=== PATIENT | female | born 1975 | race Caucasian/White ===

== ENCOUNTER 2019-12-17 07:35 | Day surgery (SDC) | payer BC ==
--- NOTE | 2019-12-11 08:43 | EKG ---
Test Date: 2019-12-11 Test Time: 08:32:13 Self Contained Behavior Unit Teacher: PALMIRA MEASUREMENT RESULTS: Intervals: Rate: 83 PA: 150 QRSD: 86 QT: 360 QTc: 423 [place]: P: 35 PA: 150 QRS: 83 T: 73 INTERPRETIVE STATEMENTS: Normal sinus rhythm Normal ECG No previous ECG available for comparison Electronically Signed On 12-11-19 08:42:58 CDT by Avery Suárez
--- NOTE | 2019-12-11 08:52 | RAD REPORT ---
EXAM DESCRIPTION: RAD - Chest Pa And Lat (2 Views) - 12/11/2019 8:46 am CLINICAL HISTORY: pre op, patient pending carpal tunnel surgery COMPARISON: March 2017 TECHNIQUE: Frontal and lateral views of the chest were obtained. FINDINGS: The lungs are clear. Mildly prominent interstitial pattern is similar to 2018. Heart size is normal and central vasculature is within normal limits. No pleural effusion or pneumothorax seen . No acute bony finding noted. No aortic abnormality. IMPRESSION: No acute cardiopulmonary process.
[2019-12-11 10:01] LABS: Absolute Lymphocytes (CBC) 2.5 K/uL (0.7-4.9); Basophils % 0.8 % (0-1.3); Hematocrit 45.4 % (36.0-45.0); Lymphocytes % 26.8 % (15.3-44.8); RBC Red Blood Cell Count 5.07 M/uL (3.86-4.86)
[2019-12-11 10:24] LABS: Potassium 4.3 mmol/L (3.5-5.1)
--- OUTSIDE RECORDS SUMMARY | 2019-12-17 07:57 | XMS REPORT | Continuity of Care Document ---
:1975 Author Organization [facility] t Address [address] [place] [address] Care Team Providers Name Role Phone Hawa SAUER Attending Clinician Jason Walker Attending Clinician Problems Condition Condition Condition Status Onset Resolution Last Treating Co mments Source Name Details Category Date Date Treatment Clinician Date G43.919 - Diagnosis Active 2015-06-07 Memoria "MIGRAINE, 3-15 07:34:00 l UNSP, G43.919 00:01: Benjamin INTRACTABL - 00 E, "MIGRAINE, UNSP, INTRACTABL E, Active 6 MH ALBERTO [place] Impaired Problem Active 2018-07-14 Mem oria glucose 5-05 06:42:01 l tolerance Impaired 00:00: Her jenkins (disorder) glucose 00 tolerance (disorder) Active 07/21/2014 Problem 07/14/2018 Data migrated from [email or web address] on 09/23/14. Evy Hendricks ALBERTO Vo Obesity Problem Active 2018-07-14 Derek alfredo (disorder) 5-05 06:42:01 l Obesity 00:00: Benjamin (disorder) 00 Active 07/21/2014 Problem 07/14/2018 Data migrated from [email or web address] on 09/23/14. Evy Hendricks OPID [place] Gynecologi Problem Active 2018-07-14 Ashwin smith 2-16 06:42:01 l examinatio 00:00: Wally sears n Gynecologi 00 (procedure c ) examinatio n (procedure ) Active 05/04/2014 Problem 07/14/2018 Data migrated from [email or web address] on 09/23/14. Evy Hendricks, OPID [place] COUGH Condition Active 2013-11-24 Mem oria 9-08 08:20:53 l COUGH 00:00: [place] 00 Active 11/24/2013 [facility] 719.46 - Diagnosis Active 2013-12-22 M emoria JOINT 11-11 07:16:00 l PAIN-L/LE 719.46 - 00:01: Her jenkins JOINT 00 PAIN-L/LE Active 11/11/2013 OPID [place] INSOMNIA Condition Active 2013-11-24 M emoria 07-24 08:20:53 l INSOMNIA 00:00: Wally n 00 Active 07/24/2013 [facility] Insomnia Problem Active 2018-07-14 Mem oria (disorder) 07-24 06:42:01 l Insomnia 00:00: Wally n (disorder) 00 Active 07/24/2013 Problem 07/14/2018 Data migrated from [email or web address] on 08/18/14. Evy Hendricks OPID [place] OSTEOARTHR Condition Active 2013-11-24 Memoria ITIS OF 06-12 08:20:53 l KNEE 00:00: [place] OSTEOARTHR 00 ITIS OF KNEE Active 06/12/2013 [facility] DEPRESSION Condition Active 2013-11-24 Memoria 06-12 08:20:53 l 00:00: Benjamin DEPRESSION 00 Active 06/12/2013 [facility] Depressive Problem Active 2018-07-14 M emoria disorder 06-12 06:42:01 l (disorder) 00:00: Wally n Depressive 00 disorder (disorder) Active 06/12/2013 Problem 07/14/2018 Data migrated from [email or web address] on 08/18/14. Evy Hendricks OPID [place] Osteoarthr Problem Active 2018-07-14 M emoria itis of 06-12 06:42:01 l knee 00:00: [place] (disorder) Osteoarthr 00 itis of knee (disorder) Active 06/12/2013 Problem 07/14/2018 Data migrated from [email or web address] on 08/18/14. Evy Eladio ALBERTO [place] FH Condition Active 2013-11-24 Mem oria DIABETES - 08:20:53 l DM FH [place] DIABETES - DM Active Condition 11/24/2013 Medical Group FH HEART Condition Active 2013-11-24 M emoria DISEASE 08:20:53 l FH HEART Wally n DISEASE Active Condition 11/24/2013 Medical Group RT KNEE Diagnosis Active 2014-06-16 Me moria MMT DOS 07:16:00 l 12/23/13 RT KNEE Wally n UDU CHO MMT DOS 12/23/13 UDU CHO Active [facility] History of Past Illness Condition Condition Condition Status Onset Resolution Last Treating Co mments Source Name Details Category Date Date Treatment Clinician Date Acute Problem Resolve 2018-07-14 2018-07-14 Memoria bronchitis d 10-30 06:42:01 06:42:01 l (disorder) Acute 00:00: Gregoria nn bronchitis 00 (disorder) Resolved 10/30/2013 Problem 07/14/2018 Data migrated from [email or web address] on 10/02/14. Evy Hendricks ALBERTO [place] Acute Problem Resolve 2018-07-14 2018-07-14 Memoria frontal d 09-15 06:42:01 06:42:01 l sinusitis Acute 00:00: Wally n (disorder) frontal 00 sinusitis (disorder) Resolved 09/15/2013 Problem 07/14/2018 Data migrated from [email or web address] on 10/02/14. Evy Eladio ALBERTO [place] ACUTE Condition Inactiv 2013-11-24 2013-11-24 Memoria BRONCHITIS e 10-30 08:20:53 08:20:53 l ACUTE 00:00: [place] BRONCHITIS 00 Inactive 10/30/2013 Condition 4 Medical [facility] ACUTE Condition Inactiv 2013-11-24 2013-11-24 Memoria FRONTAL e 09-15 08:20:53 08:20:53 l SINUSITIS ACUTE 00:00: Wally n FRONTAL 00 SINUSITIS Inactive 09/15/2013 [facility] Allergies, Adverse Reactions, Alerts Allergy Allergy Status Severity Reaction(s) Onset Inactive Treating Comm ents Source Name Type Date Date Clinician No Known No Known Active Memori a Medicati Medicati l on on [place] Allergie Allergie s s Social History Smoking Status Start Date Stop Date Source Social History 2015-05-27 21:03:15 2015-05-27 21:03:15 [facility] Medications Ordered Filled Start Stop Current Ordering Indication Dosage Frequency Signature Comments Components Source Medication Medication Date Date Medication? Clinician (SIG) Name Name Emgality Emgality 2018-03 2020- No Don [address] 0-03 09-27 [facility] [facility]00 Memoria 00 :00 [facility] ent Clinics Lyrica Lyrica Yes Don as [facility] 2-20 [place] directed [facility] - 00:[facility]: Memoria 00 [facility] ent [facility] AZITHROMYCI Yes 2 tablets M emoria N 250 MG 9-08 daily for l TABS 00:00: 1 day, [place] 00 then 1 tablet daily for 4 days BENZONATATE Yes Take one Me moria 200 MG CAPS 9-08 capsule by l 00:00: mouth 3 [place] 00 times daily as needed for cough AZITHROMYCI No 1 tablet Me moria N 500 MG 8-14 daily X 10 l TABS 00:00: days Benjamin 00 BROMFED DM No Take 7 Memor ia 30-2-10 8-14 mL's by l MG/5ML SYRP 00:00: mouth 3 Her jenkins 00 times a day as needed for cough or cold CEFDINIR Yes Take one Memor ia 300 MG CAPS 6-30 capsule by l 00:00: mouth [place] 00 twice daily for 10 days BROMFED DM No Take two Mem oria 30-2-10 6-30 teaspoons l MG/5ML SYRP 00:00: 3 times a H ermann 00 day as needed for coughing. CEFDINIR No Take one Memor ia 300 MG CAPS 6-30 capsule by l 00:00: mouth Benjamin 00 twice daily for 10 days TRAZODONE Yes half a Memori a HCL 50 MG 6-04 tablet or l TABS 00:00: a whole Benjamin 00 tablet at night as needed for insomnia TRAZODONE No half a Memori a HCL 50 MG 6-04 tablet or l TABS 00:00: a whole [place] 00 tablet at night as needed for insomnia ESCITALOPRA Yes one by Derek alfredo M OXALATE 5-08 mouth l 20 MG TABS 00:00: daily Wally n 00 SILENOR 3 Yes one by Memori a MG TABS 5-08 mouth each l 00:00: night as [place] 00 needed for insomnia ESCITALOPRA Yes one by Derek alfredo M OXALATE 5-08 mouth l 20 MG TABS 00:00: daily Wally n ESCITALOPRA Yes one by Derek alfredo M OXALATE 5-08 mouth l 20 MG TABS 00:00: daily Wally n 00 VOLTAREN 1 No Apply to Mem oria % GEL 3-27 the knee l 00:00: area three Benjamin 00 times a day as needed for pain NAPROXEN Yes 1 tablet Memor ia 500 MG TABS 3-27 twice l 00:00: daily as [place] 00 needed for pain ESCITALOPRA Yes 1 tablet Me moria M OXALATE 3-27 daily l 10 MG TABS 00:00: Benjamin 00 NAPROXEN Yes 1 tablet Memor ia 500 MG TABS 3-27 twice l 00:00: daily as [place] 00 needed for pain NAPROXEN Yes 1 tablet Memor ia 500 MG TABS 3-27 twice l 00:00: daily as [place] 00 needed for pain VOLTAREN 1 No Apply to Mem oria % GEL 3-27 the knee l 00:00: area three [place] 00 times a day as needed for pain Magnesium Magnesium Yes Don [address] [facility] [place] with a [facility] - meal [facility] Iron Iron Yes Don [address] [facility] Trazodone Trazodone Yes Don [address] [facility] HCl HCl [place] at bedtime [facility] Amitriptyli Amitriptyli Yes Don TAKE ONE [facility] ne HCl ne HCl [place] TABLET BY [facility] - MOUTH Memoria DAILY l [facility] Escitalopra Escitalopra Yes Don TAKE ONE [facility] m Oxalate m Oxalate [place] TABLET BY [facility] - MOUTH Memoria DAILY l Outpati ent Clinics Diclofenac Diclofenac 2019- No Don [address] [facility] Sodium Sodium 09-18 [place] with food [facility]ukes - 00:00 or milk Memoria :00 l Outpati ent Clinics Immunizations Ordered Filled Immunization Date Status Comments Sourc e Immunization Name Name Grace - Grace - 2018-12-[address] [facility] - multidose vial multidose vial 00:00:00 Memori al Outpatient Clinics Vital Signs Vital Name Observation Time Observation Value Comments Source Respitory Rate 2013-11-24 13:20:53 Memori al [facility] Temperature Oral (F) 2013-11-24 13:20:53 98.3 F [facility] Weight 2013-11-24 13:20:53 [facility] Heart Rate 2013-11-24 13:20:53 [facility] [place] Systolic (mm Hg) 2013-11-24 13:20:53 Derek rial Benjamin Diastolic (mm Hg) 2013-11-24 13:20:53 Mem orial [place] Weight 2013-10-30 13:43:21 [facility] Temperature Oral (F) 2013-10-30 13:43:21 98.6 F [facility] Systolic (mm Hg) 2013-10-30 13:43:21 Derek rial Benjamin Diastolic (mm Hg) 2013-10-30 13:43:21 Mem orial [facility] Heart Rate 2013-10-30 13:43:21 [facility] [place] Weight 2013-09-15 21:03:31 [facility] [place] Temperature Oral (F) 2013-09-15 21:03:31 98.3 F [facility] [place] Systolic (mm Hg) 2013-09-15 21:03:31 Derek rial [place] Diastolic (mm Hg) 2013-09-15 21:03:31 Mem orial [place] Heart Rate 2013-09-15 21:03:31 [facility] [place] Weight 2013-07-24 15:46:32 [facility] [place] Temperature Oral (F) 2013-07-24 15:46:32 98.5 F [facility] [place] Heart Rate 2013-07-24 15:46:32 [facility] Systolic (mm Hg) 2013-07-24 15:46:32 Derek rial [place] Diastolic (mm Hg) 2013-07-24 15:46:32 Mem orial [place] Height 2013-06-12 18:29:01 [facility] Weight 2013-06-12 18:29:01 [facility] Respitory Rate 2013-06-12 18:29:01 Memori al [place] Heart Rate 2013-06-12 18:29:01 [facility] [place] Systolic (mm Hg) 2013-06-12 18:29:01 Derek robert [place] Diastolic (mm Hg) 2013-06-12 18:29:01 Mem orial [place] Temperature Oral (F) 2013-06-12 18:29:01 98.9 F [facility] Procedures Procedure Date / Time Performed Performing Clinician Rao hahn vaginal Pap smear results 2011-03-20 16:56:54 La morial [place] Arthroscopy<sup>1</sup> [facility] Bilateral tubal ligation Marika l [place] section Mina Lo n Encounters Start End Encounter Admission Attending Care Care Encounter Source Date/Time Date/Time Type Type Clinicians Facility Department ID 2019-11-27 2019-11-27 [facility] [id number] 08:00:00 08:00:00 [facility] 2019-11-27 2019-11-27 Outpatient [id number]00 [facility] 2019-10-29 2019-10-29 [facility] [id number] 08:00:00 23:59:00 Encounter Mila [place] [id number] [place] [id number] [place] [id number] 2019-10-28 2019-10-28 [facility] [id number] 09:30:00 09:30:00 t Chegg Gilbert s [facility] 2019-10-16 2019-10-16 [facility] [id number] 09:00:00 09:00:00 [facility] 2019-10-01 2019-10-[address] [facility] [id number] 08:34:48 09:13:54 Visit Mila Sol [id number] [place] [id number] Olivia [id number] [address] 2019-07-29 2019-07-29 [facility] [id number] 14:15:00 14:15:00 t [employer] [facility] 2019-07-17 2019-07-17 [facility] [id number] 15:00:00 15:00:00 t [facility] Clinic of [facility] ent [facility] 2019-05-29 2019-05-29 [facility] [id number] 14:30:00 14:30:00 t [employer] [facility] 2019-05-26 2019-05-26 [facility] [id number] 08:00:00 08:00:00 t [facility] ent Clinics 2019-04-30 2019-04-30 [facility] [id number] 16:54:00 16:54:00 t [employer] [facility] 2019-04-30 2019-04-30 [facility] [id number] 15:00:00 15:00:00 t [employer] [facility] Outpati ent Clinics 2019-01-20 2019-01-20 [facility] [id number] 14:15:00 14:15:00 t [employer] [facility] 2018-12-19 2018-12-19 [facility] [id number] 10:00:00 10:00:00 t [place] [place] [facility] Outpati ent Clinics 2018-11-20 2018-11-20 [facility] [id number] 08:00:00 08:00:00 t [place] [employer] [employer] [facility] Medicine Outpati ent Clinics 2018-07-10 2018-07-11 Outpatient MHMISCHER MHMISCHER [id number] 10:05:00 23:59:59 02 2018-07-10 2018-07-11 Outpatient MHMISCHER MHMISCHER [id number] 10:05:00 23:59:59 02 2018-06-20 2018-06-20 [facility] [id number] 13:00:00 13:00:00 t [place] [employer] [employer] [facility] Medicine Outpati ent Clinics 2018-05-08 2018-05-08 [facility] [id number] 14:00:00 14:00:00 t [employer] [facility] Medicine Outpati ent Clinics 2018-04-17 2018-04-17 [facility] [id number] 10:15:00 10:15:00 t [employer] [facility] Medicine Outpati ent Clinics 2015-06-07 2015-06-07 Outpatient MARIA ESTHER Gomez OIP [id number] 07:23:00 23:59:00 Nomi 01 Results Test Description Test Time Test Comments Results Result Comments Source Softball Ump[employer] 2011-03-20 Normal [facility] Gregoria nn 16:56:54 Pathology 2011-03-20 Normal [facility] Gregoria nn 16:56:54
--- OUTSIDE RECORDS SUMMARY | 2019-12-17 07:57 | XMS REPORT ---
:1975 Author Organization [employer] Care Team Providers Name Role Phone Don Llanos Provider Role Unavailable Allergies No Known Allergies Problems Problem Type Condition Code Onset Dates Condition Statu s Problem GERD without esophagitis K21.9 Act sharon Problem Depression with anxiety F41.8 Acti ve Problem Seasonal allergies J30.2 Active Problem Carpal tunnel syndrome of right G56.01 Active wrist Problem Paresthesia of skin R20.2 Active Problem Carpal tunnel syndrome of left G56.02 Active wrist Problem Adult BMI 40.0-44.9 kg/sq m Z68.41 Active Problem Peripheral polyneuropathy G62.9 Ac tive Problem Hypertriglyceridemia E78.1 Active Problem Bilateral carpal tunnel syndrome G56.03 Active Assessment Pain in joint of right hand M25.541 Active Assessment Pain in joint of left hand M25.542 A ctive Assessment Carpal tunnel syndrome of left G56.02 Active wrist Assessment Carpal tunnel syndrome of right G56.01 Active wrist Problem Migraine without aura and without G43.009 Active status migrainosus, not intractable Medications Medication Code Code Instructions Start End Status Dosage System Date Date Trazodone HCl [facility] 23511688018 50 MG Active TAKE O NE TABLET BY MOUTH AT BEDTIME Escitalopram ND 31554166497 20 MG Active TAKE ON E Oxalate TABLET BY MOUTH DAILY Lyrica ND 38353403705 100 MG Orally Active as dir ected BID Trazodone HCl ND 35364188491 50 MG Orally Active 1 tablet at Once a day bedtime Diclofenac ND 35463652729 75 MG Orally Active 1 ta blet Sodium Twice a day with food or milk Iron [facility] 18080104982 325 (65 Fe) MG Active 1 tab let Orally Once a day Diclofenac ND 62503150945 75 MG Active TAKE ONE Sodium TABLET BY MOUTH TWICE A DAY WITH FOOD OR MILK Amitriptyline ND 47505920252 100 MG Active TAKE O NE HCl TABLET BY MOUTH DAILY Amitriptyline ND 16267998734 100 MG Orally Active 1 tablet HCl Once a day Escitalopram [facility] 20544709260 20 MG Orally Active 1 tablet Oxalate Once a day Emgality [facility] 60904563583 120 MG/ML Active 1 ml Subcutaneous Once a month Magnesium [facility] 63665720059 200 MG Orally Active 1 ta blet twice a day with a meal Results No Known Results Summary Purpose [employer] Submission
--- OUTSIDE RECORDS SUMMARY | 2019-12-17 07:57 | XMS REPORT ---
:1975 Author Organization [employer] Care Team Providers Name Role Phone Edwin [facility] Provider Role Unavailable Allergies, Adverse Reactions, Alerts Substance Reaction Event Type N.K.D.A. Info Not Available Non Drug Allergy Problems Problem Type Condition Code Onset Dates Condition Statu s Problem GERD without esophagitis K21.9 Act sharon Problem Depression with anxiety F41.8 Acti ve Problem Seasonal allergies J30.2 Active Problem Carpal tunnel syndrome of right G56.01 Active wrist Assessment Renal insufficiency N28.9 Active Problem Paresthesia of skin R20.2 Active Problem Carpal tunnel syndrome of left G56.02 Active wrist Problem Adult BMI 40.0-44.9 kg/sq m Z68.41 Active Problem Peripheral polyneuropathy G62.9 Ac tive Problem Hypertriglyceridemia E78.1 Active Problem Bilateral carpal tunnel syndrome G56.03 Active Assessment Adult BMI 40.0-44.9 kg/sq m Z68.41 Active Assessment Hypertriglyceridemia E78.1 Active Assessment Anesthesia of skin R20.0 Active Assessment Paresthesia of skin R20.2 Active Assessment Peripheral polyneuropathy G62.9 Ac tive Assessment Migraine without aura and without G43.009 Active status migrainosus, not intractable Assessment Depression with anxiety F41.8 Acti ve Assessment Bilateral carpal tunnel syndrome G56.03 Active Problem Migraine without aura and without G43.009 Active status migrainosus, not intractable Medications Medication Code Code Instructions Start End Status Dosage System Date Date Escitalopram [facility] 16297106358 20 MG Orally Active 1 tablet Oxalate Once a day Escitalopram [facility] 09561132949 20 MG Active TAKE ON E Oxalate TABLET BY MOUTH DAILY Amitriptyline ND 35795718445 100 MG Active TAKE O NE HCl TABLET BY MOUTH DAILY Diclofenac ND 70647619167 75 MG Orally Active 1 ta blet Sodium Twice a day PRN with viola d SEvere pain or milk Iron [facility] 66420772878 325 (65 Fe) MG Active 1 tab let Orally Once a day Lyrica [facility] 43662231051 100 MG Orally Active as dir ected BID Trazodone HCl [facility] 13624008216 50 MG Orally Active 1 tablet at Once a day bedtime Emgality [facility] 03153790818 120 MG/ML Active 1 ml Subcutaneous Once a month Trazodone HCl [facility] 19908832296 50 MG Active TAKE O NE TABLET BY MOUTH AT BEDTIME Amitriptyline [facility] 48445551596 100 MG Orally Active 1 tablet HCl Once a day Magnesium [facility] 01024073321 200 MG Orally Active 1 ta blet twice a day with a meal Diclofenac [facility] 41493216727 75 MG Active TAKE ONE Sodium TABLET BY MOUTH TWICE A DAY WITH FOOD OR MILK Results No Known Results Summary Purpose [employer] Submission
--- OUTSIDE RECORDS SUMMARY | 2019-12-17 07:57 | XMS REPORT | Summary of Care ---
:1975 Author Organization [facility] - Health Address [address] [place] [address] Care Team Providers Name Role Phone Talha Pineda Primary Care Provider Encounter Details Date Type Department Care Team Description 10/01/2019 Orders Only [facility] Doctor Unassigned, No [address] [facility] [place] [address] [address] [place] [address] Allergies No Known Allergiesdocumented as of this encounter (statuses as of 10/01/2019) Medications Medication Sig Dispensed Refills Start Date End Date Status vitamin Take 1 Tab by mouth 100 Tab 3 02/09/2010 Active w/FA ( RX OR daily. GENERIC EQUIVALENT) tablet docusate calcium Take 1 Cap by mouth 60 Cap 1 02/09/2010 Active (SURFAK) 240 mg once daily as needed capsule for Constipation. ferrous sulfate 325 Take 1 Tab by mouth 60 Tab 2 02/09/2010 Active mg (65 mg Iron) 2 (two) times daily. tablet hydrocodone-acetamin Take 1-2 Tabs by 30 Tab 0 02/09/2010 Active ophen (NORCO 5) mouth every 6 (six) 5-325 mg tablet hours as needed for Pain. Not to be administered at the same time as [place] 10 if ordered. For patients < 12 years recommend do not exceed 5 doses or 2.6 gm in 24 hours totals for all acetaminophen containing products. For adults with normal hepatic function recommend do not exceed 4 grams in 24 hours for all acetaminophen containing products. ibuprofen (MOTRIN) Take 1 Tab by mouth 60 Tab 1 02/09/2010 Active 600 mg tablet every 6 (six) hours as needed for Pain. 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 COVID-19 Exposure Response Date Recorded In the last month, have you been in contact with No / Unsure 10/01/2019 8:32 AM CDT someone who was confirmed or suspected to have Coronavirus / COVID-19? documented as of this encounter Last Filed Vital Signs Not on filedocumented in this encounter Plan of Treatment Date Type Specialty Care Team Description 10/01/2019 Office Visit Obstetrics & Gynecology Mila Shaikh PA-C [address] [place] [address] [phone] Health Maintenance Due Date Last Done Comments DTaP,Tdap,and Td Vaccines (1 01/04/1987 - Tdap) Depression Screening 1988 Breast Cancer Screening 2016 (MAMMOGRAM) INFLUENZA VACCINE (#1) 2019 PAP SMEAR 09/30/2021 09/30/2018, 06/18/2009 PNEUMOCOCCAL 0-64 YEARS Aged Out No longe r eligible based COMBINED SERIES on patient's age to complete this to [facility] documented as of this encounter Procedures Procedure Name Priority Date/Time Associated Diagnosis Comme nts ASSIGNMENT OF BENEFITS Routine 10/01/2019 8:34 AM CDT documented in this encounter Results Not on filedocumented in this encounter Insurance Payer Benefit Plan Subscriber ID Effective Dates Phone Address Type / Group [employer] [place] [id number] 2018-Becky [phone] [address] [place] - OUT OF t 7 [id number] [place] [address] documented as of this encounter
--- OUTSIDE RECORDS SUMMARY | 2019-12-17 07:57 | XMS REPORT | Summary of Care ---
:1975 Author Organization [facility] Address [address] [place] [id number] Care Team Providers Name Role Phone Talha Pineda Primary Care Provider Reason for Referral Radiology Services (Routine) Status Reason Specialty Diagnoses / Referred By Referred To Procedures Contact Contact New Request Diagnostic Diagnoses Screening breast examination [place], Radiology Procedures BI SCREENING MAMMOGRAM BILATERAL CAMACHO Zaragoza [address] [place] [id number] Reason for Visit Reason Comments Well Woman Exam Encounter Details Date Type Department Care Team Description 10/01/2019 Office Visit [facility] Women[facility] Mila Shaikh Well woman exam with routine gynecological exam (Primary Dx); [facility] CAMACHO Screening breast examination; [address] [place] [address] [address] renita for Depo-Provera [address], [address] [place] [id number] [place], [place] [phone] Allergies No Known Allergiesdocumented as of this [...] be administered at the same time as [place] 10 if ordered. 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 documented as of this encounter (statuses [...] of this encounter Last Filed Vital Signs Vital Sign Reading Time Taken Comments Blood Pressure 124/85 10/01/2019 8:45 AM CDT Pulse 90 10/01/2019 8:45 AM CDT Temperature 36.9 C (98.5 F) 10/01/2019 8:45 AM CDT Respiratory Rate 18 10/01/2019 8:45 AM CDT Oxygen Saturation - - Inhaled Oxygen Concentration - - Weight 113.9 kg (251 lb) 10/01/2019 8:45 AM CDT Height 167.6 cm (5' 6") 10/01/2019 8:45 AM CDT Body Mass Index 40.51 10/01/2019 8:45 AM CDT documented in this encounter Patient Instructions Patient InstructionsDilma Galo MA - 10/01/2019 9:00 AM CDT Patient Education Prevention Guidelines,Women Ages 40 to 49 Screening tests and vaccines are an important part of managing your health. A screening test is doneto find diseases in people who don't have any symptoms. The goal is to find a disease early so lifestyle changes and checkups can reduce the risk of disease. Or the goal may be to detect it early to treat it most effectively. Screening tests are not used to diagnose a disease. But they are used to seeif more testing is needed.Health counseling is important, too. Below are guidelines for these, forwomen ages 40 to 49. Talk with your healthcare provider to make sure youre up-to-date on what youneed. Screening Who needs it How often Type 2 diabetes or prediabetes All women beginning at age 45 and women without symptoms at any age who are overweight or obese and have 1 or more additional risk factors for diabetes At least every 3 years1 Type 2 diabetes or prediabetes All women diagnosed with gestational diabetes Lifelong testing every 3 years Type 2 diabetes All women with prediabetes Every year Alcohol misuse All women in this age group At routine exams Blood pressure All women in this age group Yearly checkup if your blood pressure is normal Normal blood pressure is less than 120/80 mm Hg If your blood pressure reading is higher than normal, follow the advice of your healthcare provider Breast cancer All women at average risk in this age group Screening with a mammogram can start at age 40.2 Talk with your healthcare provider to help you decide when to start screening. At age 45 startyearly mammograms.3 Cervical cancer All women in this age group, except women who have had a complete hysterectomy Pap test every 3 yearsor Pap test plushuman papilloma virus (HPV)test every 5 years Colorectal cancer Women age 45 years and older at average risk Multiple tests are available and are used at different times. Possible tests include: Flexible sigmoidoscopy every 5 years, or Colonoscopy every 10 [address], [address] colonography (virtual colonoscopy) every 5 years, or Yearly fecal occult blood test, or Yearly fecal immunochemical test every year, or Stool DNA test, every 3 years If you choose a test other than a colonoscopy and have an abnormal test result, you will need to follow-up with a colonoscopy. Screening advice varies among expert groups. Talk with your healthcare provider about which tests are best for you. Some people should be screened using a different schedule because of their personal or family healthhistory. Talk with your healthcare provider about your health history. Chlamydia Women at increased risk for infection At routine exams if you're at risk or have symptoms Depression All women in this age group At routine exams Gonorrhea Sexually active women at increased risk for infection At routine exams Hepatitis C Anyone at increased risk; 1 time for those born between 1945 and 1964 At routine exams High cholesterol or triglycerides All women ages 45 and older who are at risk for coronary artery disease; younger women, talk with your healthcare provider At least every 5 years HIV All women At routine exams. Those with risk factors for HIV should be tested at least annually. Obesity All women in this age group At routine exams Syphilis Women at increased risk for infectiontalk with your healthcare provider At routine exams Tuberculosis Women at increased risk for infectiontalk with your healthcare provider Ask your healthcare provider Vision All women in this age group Complete exam at age 40 and eye exams every 2 to 4 years. If you have a chronic disease, ask your healthcare provider how often you should have your eyes examined.4 Vaccine Who needs it How often Chickenpox (varicella) All women in this age group who have no record of this infection or vaccine 2doses; the second dose should be given at least 4 weeks after the first dose Hepatitis A Women at increased risk for infectiontalk with your healthcare provider 2 doses given6 months apart Hepatitis B Women at increased risk for infectiontalk with your healthcare provider 3 doses over 6 months; second dose should be given 1 month after the first dose; the third dose should be given atleast 2 months after the second dose and at least 4 months after the first dose Haemophilus influenzaeType B (HIB) Women at increased risk 1 to 3 doses Influenza (flu) All women in this age group Once a year Measles, mumps, rubella (MMR) All women in this age group who have no record of these infections or vaccines 1 or 2 doses Meningococcal Women at increased risk for infectiontalk with your healthcare provider 1 or more doses Pneumococcal conjugate vaccine (PCV13)and pneumococcal polysaccharidevaccine(PPSV23) Women at increased risk for infectiontalk with your healthcare provider 1 or 2 doses Tetanus/diphtheria/pertussis (Td/Tdap) booster All women in this age group A 1- time dose of Tdap instead of a Td booster after age 18, then Td every 10 years Counseling Who needs it How often BRCA gene mutation testing for breast and ovarian cancer susceptibility Women with increased risk for having gene mutation When your risk is known Breast cancer and chemoprevention Women at high risk for breast cancer When your risk is known Diet and exercise Women who are overweight or obese When diagnosed, and then at routine exams Domestic violence Women at the age in which they are able to have children At routine exams Sexually transmitted infection prevention Women at increased risk for infectiontalk with your healthcare provider At routine exams Use of tobacco and the health effects it can cause All women in this age group Every exam 1 [place] [employer] 2 [place] [employer] 3 [place] [employer] 4 [place] [employer] POINT 3 [employer] last reviewed this educational content on 01/17/201719993240-1450 [employer]. [address] [place] [address]. All rights reserved. This information is not intended as a substitute for professional medical care. Always follow your healthcare professional's instructions. Patient Education Clinical Breast Exam Many health organizations recommend a yearly clinical breast exam. This exam may be done by a motorcycle deliverer, family healthcare provider, nurse practitioner, nurse trimming operator, or specially trained nurse. Yearly breast exams help tomake surethat breast conditions are found early. Your healthcare providers role A healthcare professional knows the tests and follow-up care needed if a problem is found. Your clinical exam is also a great time to ask questions about breast self-exams. You can find out if yourechecking your breasts in the best way. Or you may want to ask how , breast implants, or breast reduction surgery affect the way you should check your breasts. Diagnostic tests If a clinical exam reveals a breast change, you may have other tests to find out more. These tests may include: Mammography. A low-dose X-ray of your breast tissue. Ultrasound. An imaging test that uses sound waves to create images of your breast. Biopsy. A small amount of breast tissue is removed by needle or by a cut (incision). The tissue is then checked under a microscope. Guidelines for having clinical breast exams The [place] [employer] recommends that starting at age 29, you should have a clinical breast exam every 1 to 3 years. After age 40, have a clinical breast exam each year. If youre at higher risk for breast cancer, you may need exams more often. Risk factors for breast cancer may include: Being over 50 or postmenopausal Having a family history of breast cancer Having the BRCA1 or BRCA2 gene mutation or certain other gene mutations Having more menstrual periods due to starting menstruation early(before age 12) or having a late menopause (after age 55) Having no pregnancies Having a first after age 30 Being obese Having a history of radiation treatment to your chest area Exposure to EUGENE during your mother's Not being active Drinking too much alcohol Having dense breast tissue Taking hormone therapy after menopause Other health organizations have different recommendations. Talk with your healthcare provider about what is best for you. POINT 3 [employer] liam reviewed this educational content on 10/17/201619990698-7945 [employer]. [address] [place] [address]. All rights reserved. This information is not intended as a substitute for professional medical care. Always follow your healthcare professional's instructions. Patient Education Breast Health: Breast Self-Awareness What is breast self-awareness? Breast self-awareness is knowing how your breasts normally look and feel. Your breasts change as yougo through different stages of your life. So its important to learn what is normal for your breasts. Knowing about your breasts helps you spot any changes in them right away. Tell your healthcare provider about any changes. Why is breast self-awareness important? Many experts now say that women should focus on breast self-awareness instead of doing a breast self-examination (BSE). These experts include the [place] [employer] and the [place] [employer]ians [employer] Gynecologists. Some experts even advise not teaching women to do a BSE. Thats because research hasnt shown a clear benefit to doing BSEs. Breast self-awareness is different than a BSE. It isnt about following a certain method and schedule. Its about knowing what's normal for your breasts. That way you can spot even small changes right away. If you see any changes, tell your healthcare provider. Changes to look for Call your healthcare provider if you find any changes in your breasts that worry you. These changes may be: A lump Nipple discharge other than breastmilk, especially if it's bloody Swelling A change in size or shape Skin changes, such as redness, thickening, or dimpling of the skin Swollen lymph nodes in the armpit Nipple problems, such as pain or redness If you find a lump Call your provider if you find lumpiness in one breast. Also call if you feel something different inthe tissue or feel a definite lump. Sometimes lumpiness may be due to menstrual changes. But there may be reason for concern. Your provider may want to see you right away if you have: Nipple discharge that is bloody Skin changes on your breast, such as dimpling or puckering Its okay to be upset if you find a lump. Be sure to call your provider right away. Remember that most breast lumps are benign. This means they are not cancer. [employer] 3 [employer] last reviewed this educational content on 10/17/201619998975-7834 [employer]. [address] [place] [address]. All rights reserved. This information is not intended as a substitute for professional medical care. Always follow your healthcare professional's instructions. Patient Education Medroxyprogesterone injection [Contraceptive] Brand Names: Depo-Provera, Depo-subQ Provera 104 What is this medicine? MEDROXYPROGESTERONE (me DROX ee proe NAEEM te yodit) contraceptive injections prevent . They provide effective control for 3 months. Depo-subQ Provera 104 is also used for treating pain related to endometriosis. How should I use this medicine? Depo-Provera Contraceptive injection is given into a muscle. Depo-subQ Provera 104 injection is given under the skin. These injections are given by a health critical care rn. You must not be before getting an injection. The injection is usually given during the first 5 days after the start of a menstrual period or 6 weeks after delivery of a baby. Talk to your manager of procurement regarding the use of this medicine in children. Special care may be needed. These injections have been used in female children who have started having menstrual periods. What side effects may I notice from receiving this medicine? Side effects that you should report to your doctor or health critical care rn as soon as possible: allergic reactions like skin rash, itching or hives, swelling of the face, lips, or tongue breast tenderness or discharge breathing problems changes in vision depression feeling faint or lightheaded, falls fever pain in the abdomen, chest, groin, or leg problems with balance, talking, walking unusually weak or tired yellowing of the eyes or skin Side effects that usually do not require medical attention (report to your doctor or health critical care rn if they continue or are bothersome): acne fluid retention and swelling headache irregular periods, spotting, or absent periods temporary pain, itching, or skin reaction at site where injected weight gain What may interact with this medicine? Do not take this medicine with any of the following medications: bosentan This medicine may also interact with the following medications: aminoglutethimide antibiotics or medicines for infections, especially rifampin, rifabutin, rifapentine, and griseofulvin aprepitant barbiturate medicines such as phenobarbital or primidone bexarotene carbamazepine medicines for seizures like ethotoin, felbamate, oxcarbazepine, phenytoin, topiramate modafinil Herndon's wort What if I miss a dose? Try not to miss a dose. You must get an injection once every 3 months to maintain control. If you cannot keep an appointment, call and reschedule it. If you wait longer than 13 weeks between Depo-Provera contraceptive injections or longer than 14 weeks between Depo-subQ Provera 104 injections, you could get . Use another method for control if you miss your appointment. You may also need a test before receiving another injection. Where should I keep my medicine? This does not apply. The injection will be given to you by a health critical care rn. What should I tell my health care provider before I take this medicine? They need to know if you have any of these conditions: frequently drink alcohol asthma blood vessel disease or a history of a blood clot in the lungs or legs bone disease such as osteoporosis breast cancer diabetes eating disorder (anorexia nervosa or bulimia) high blood pressure HIV infection or AIDS kidney disease liver disease mental depression migraine seizures (convulsions) stroke tobacco smoker vaginal bleeding an unusual or allergic reaction to medroxyprogesterone, other hormones, medicines, foods, dyes, or preservatives or trying to get breast-feeding What should I watch for while using this medicine? This drug does not protect you against HIV infection (AIDS) or other sexually transmitted diseases. Use of this product may cause you to lose calcium from your bones. Loss of calcium may cause weak bones (osteoporosis). Only use this product for more than 2 years if other forms of control are not right for you. The longer you use this product for control the more likely you will be at risk for weak bones. Ask your health critical care rn how you can keep strong bones. You may have a change in bleeding pattern or irregular periods. Many females stop having periods while taking this drug. If you have received your injections on time, your chance of being is very low. If you think you may be , see your health critical care rn as soon as possible. Tell your health critical care rn if you want to get within the next year. The effect of this medicine may last a long time after you get your last injection. NOTE:This sheet is a summary. It may not cover all possible information. If you have questions aboutthis medicine, talk to your doctor, pharmacist, or health care provider. Copyright 2018 [employer] Patient Education Calcium Supplements Calcium is a mineral that helps make strong bones and teeth. Most of the calcium in your body is in your bones. It takes almost half of your life (30 to 35 years) for your bones to reach their maximum size and strength (peak bone mass). When you are younger, taking in enough calcium helps you build strong bones. When you are older, getting enoughcalcium in your diethelps tolimit bone loss. Yourbody cant make calcium, so you must get it from foods or supplements. Why use a supplement? You might need a supplement if any of the following is true for you: I dont eat dairy products or other foods that are high in calcium such as kale, bok priya, and calcium-fortified foods 2 to 3 times a day. I am a woman past menopause. I am or . I don't do frequent weight-bearing exercises such as walking, running, or weightlifting. The daily recommended amount of calcium depends on many factors. This includes yourage and if you are a man or a woman. Your healthcare provider can help you choose the right amount of calcium for you. If you take calcium Here are some tips to help you get the most from a calcium supplement: Choose calcium carbonate or calcium citrate. Calcium carbonate needs stomach acid to be absorbed.So it's best absorbed when taken with meals. Calcium citrate is absorbed the same when taken with orwithout food. Check the label for elemental calcium. You need 1,000 to 1,500 mg a day. This should come from diet and supplements. Figure out how much calcium is in your diet and choose the correct supplement. If you also take an iron supplement, take it a few hours before or after the calcium. Be aware that taking calcium interferes with the absorption of some bacteria- fighting medicines (antibiotics). Talk to your provider or pharmacist. Eat a balanced diet to get all the nutrients your body needs. Sources of calcium Milk, yogurt, and cheese Certain green leafy vegetables, such as kale, bok priya, and sujit greens Fish with bones, such as canned salmon, mackerel, and sardines Tofu made with calcium carbonate (not the type of tofu called nagiri) Drinks that have calcium added, such as some orange juice and rice and soy drinks [employer] 3 [employer] last reviewed this educational content on 12/17/201819993733-0827 [employer]. [address] [place] [address]. All rights reserved. This information is not intended as a substitute for professional medical care. Always follow your healthcare professional's instructions. documented in this encounter Progress Notes Dilma Galo MA - 10/01/2019 9:00 AM CDT44 year old female has been identified by and name. Written consent has been obtained by patient to have an injection of Depo Provera, as ordered by the provider. Date of last Depo Provera injection: 07/15/2019 Last Pap Smear: 09/30/2018 Encounter Diagnosis: Z30.42 The site was cleaned with an alcohol swab and given intramuscularly (IM) in the left deltoid. A band aid dressing was then applied to the injection site. The patient tolerated the procedure well , norash, swelling or reaction noted. DILMA GALO MA 10/01/2019 9:09 AM Mila Rebollar PA-C - 10/01/2019 9:00 AM CDT Chief complaint: Chief Complaint Patient presents with Well Woman Exam HPI Leanne Berman is a 44 year old female presenting for well woman exam. She is particularly concerned about wwe The patient has a Body mass index is 40.51 kg/m.. She is working on eating healthier and exercising more. The patient is not concerned about her menstrual cycles. Her cycles are irregular and last about 1-3 days. Her bleeding is minimal. The patient is sexually active. She currently has 1 sexual partner(s). She is offered sexually transmitted disease testing and declines. She has had 1 sexual partners in the past year. She engages in vaginal and oral sex. She prefers men. She is currently using depo for contraception. She reports starting to have hot flushes or night sweats. She is not using hormone therapy. She denies using any complementary or alternative medicines. The patient denies any urinary incontinence. She denies any fecal incontinence. Her last pap smear was in 2018 and was normal. Her next pap smear is due 2023. She engages in breast self awareness. She denies any breast changes. Her last mammogram was in never. Her last colonoscopy was never. She denies any n/v, d/c, rectal bleeding. She denies any family history of breast, ovarian, uterine or colon cancer. The patient feels safe at home. She denies any history of drug use. She does not smoke. She drinks socially. Her mood is good. Histories OB History Para Term AB Living 5 3 3 2 3 SAB TAB Ectopic Multiple Live Births 1 1 3 # Outcome Date GA Lbr Jeff/2nd Weight Sex Delivery Anes PTL Lv 5 Term 2009 CS-Unspec ACE 4 SAB 2004 3 Term 2003 VAGINAL ACE 2 Term 1997 VAGINAL ACE 1 TAB 1997 Obstetric Comments Largest baby weighed 9lbs Past Medical History: Diagnosis Date Anxiety Depression Pap smear abnormality of cervix '98 Family History Problem Relation Age of Onset Diabetes Mother COPD (chronic obstructive pulmonary disease) Father Cancer Father polyps Family Status Relation Name Status Mo Alive Fa Alive Past Surgical History: Procedure Laterality Date BACK SURGERY SECTION MENISCECTOMY Social History Socioeconomic History Marital status: Spouse name: Not on file Number of children: Not on file Years of education: Not on file Highest education level: Not on file Occupational History Not on file Social Needs Financial resource strain: Not on file Food insecurity: Worry: Not on file Inability: Not on file Transportation needs: Medical: Not on file Non-medical: Not on file Tobacco Use Smoking status: Never Smoker Smokeless tobacco: Never Used Substance and Sexual Activity Alcohol use: Yes Comment: ocassionally Drug use: Never Sexual activity: Yes Partners: Male control/protection: Injection Lifestyle Physical activity: Days per week: Not on file Minutes per session: Not on file Stress: Not on file Relationships Social connections: Talks on phone: Not on file Gets together: Not on file Attends protestant service: Not on file Active member of club or organization: Not on file Attends meetings of clubs or organizations: Not on file Relationship status: Not on file Intimate partner violence: Fear of current or ex partner: Not on file Emotionally abused: Not on file Physically abused: Not on file Forced sexual activity: Not on file Other Topics Concern Not on file Social History Narrative Pt denies physical and sexual abuse. Social History Substance and Sexual Activity Sexual Activity Yes Partners: Male control/protection: Injection Labs none Radiology none Allergies Leanne has No Known Allergies. Medications Leanne has a current medication list which includes the following prescription(s): emgality pen, amitriptyline, escitalopram oxalate, lyrica, trazodone, docusate calcium, ferrous sulfate, hydrocodone-acetaminophen, ibuprofen, and vitamin w/fa. Review of Systems Constitutional: Negative for appetite change, fatigue, fever, unexpected weight change, weight gain and weight loss. HENT: Negative for rhinorrhea and sore throat. Eyes: Negative for pain and itching. Respiratory: Negative for cough, chest tightness and shortness of breath. Breasts: Negative for discharge, mass and pain. Cardiovascular: Negative for chest pain, palpitations and leg swelling. Gastrointestinal: Negative for abdominal pain, constipation, diarrhea and nausea. Genitourinary: Negative for bladder incontinence, dysuria, vaginal discharge, difficulty urinating, vaginal pain and pelvic pain. Musculoskeletal: Negative for gait problem and myalgias. Skin: Negative for rash. Neurological: Negative for dizziness and headaches. Psychiatric/Behavioral: Negative for suicidal ideas. The patient is not nervous/anxious. Endocrine: Negative for hair loss, weight gain and weight loss. BP 124/85 (BP Location: Left arm, Patient Position: Sitting, BP CUFF SIZE: Adult Small) | Pulse 90| Temp 36.9 C (98.5 F) (Oral) | Resp 18 | Ht 5' 6" (1.676 m) | Wt 251 lb (113.9 kg) | LMP 09/11/2019 (Within Days) | BMI 40.51 kg/m Pregravid BMI: Could not be calculated Physical Exam Vitals reviewed. Constitutional: She is oriented to person, place, and time. Her body habitus is obese. Neck: No mass. No thyromegaly palpated. No neck adenopathy. Cardiovascular: Regular rate and rhythm. Pulmonary/Chest: Normal inspiratory effort. Abdominal: Abdomen is soft. No tenderness present. No hernia palpated or inspected. Neuro/Psychiatric: She has a normal mood and affect. She is oriented to person, place, and time. Skin: Skin normal. Lymphadenopathy: No neck adenopathy present. No axillary adenopathy present. No inguinal adenopathy present. Breast: Right breast exhibits no mass, no nipple discharge and no tenderness. Left breast exhibits no mass, no nipple discharge and no tenderness. Breasts are symmetrical. Normal left breast and normalright breast External genitalia: Normal external genitalia appropriate for age. Urethral meatus: Normal urethral meatus Urethra: Normal urethra. Bladder: No tenderness. Normal bladder Vagina:Normal vagina. No lesion inspected. No abnormal vaginal discharge found. Cervix: Normal cervix. No lesion. No tenderness and no discharge present. Uterus: Uterus is non-tender. Normal uterus Adnexa: Right adnexa without tenderness. Left adnexa without tenderness. Normal left adnexa and normal right adnexa Anus/perineum: Normal perineum and normal anus. Assessment/Plan Well woman exam with routine gynecological exam (primary encounter diagnosis) FOLLOW-UP in 1 yr WWE Screening breast examination mammo ordered. Surveillance for Depo-Provera contraception For Depo-provera, it is given every 3 months. May cause heavy and irregular bleeding initially. Side effects include but not limited to headache, weight gain, mood lability, breast tenderness, and abnormal uterine bleeding. Discussed need for calcium and weightbearing exercise and stressed importance of continued use of condoms for STD protection. It may take up to a year after discontinuation of medication to regain ovulation. Discussed risks and benefits of medication and questions answered. Return to clinic in 1 yr WWE Discussed treatment options. Reviewed patient instructions and provided printed copy. This visit did not involve counseling and coordination that comprised more than 50% of the visit time. Mila Shaikh PA-C 10/01/2019 8:41 AM documented in this encounter Plan of Treatment Date Type Specialty Care Team Description 12/30/2019 Nurse Visit Obstetrics & Gynecology Nurse, [facility]' s [facility] 09/30/2020 Office Visit Obstetrics & Gynecology Mila Shaikh PA-C [address] [place] [address] [phone] Name Type Priority Associated Diagnoses Order S chedule BI SCREENING MAMMOGRAM IMAGING Routine Screening breast E xpected: 10/01/2019, BILATERAL examination Expires: 2020 Health Maintenance Due Date Last Done Comments DTaP,Tdap,and Td Vaccines (1 01/04/1987 - Tdap) Depression Screening 1988 Breast Cancer Screening 2016 (MAMMOGRAM) INFLUENZA VACCINE (#1) 2019 PAP SMEAR 09/30/2021 09/30/2018, 06/18/2009 PNEUMOCOCCAL 0-64 YEARS Aged Out No longe r eligible based COMBINED SERIES on patient's age to complete this to [facility] documented as of this encounter Results Not on filedocumented in this encounter Visit Diagnoses Diagnosis Well woman exam with routine gynecologic al exam - Primary Routine gynecological examination Screening breast examination Other screening breast examination Surveillance for Depo-Provera contracept ion Surveillance of other previously prescri bed contraceptive method documented in this encounter Administered Medications Medication Order MAR Action Action Date Dose Rate Site medroxyPROGESTERone Given 10/01/2019 9:01 150 mg Left Deltoid-IM (DEPO-PROVERA) injection 150 AM CDT mg 150 mg, Intramuscular, ONCE, 1 dose, 10/01/19 at 1000, Routine documented in this encounter Insurance Payer Benefit Plan Subscriber ID Effective Dates Phone Address Type / Group [id number] 2018-Becky [phone] [address] PPO/POS [place] - OUT OF t 7 [id number] [place] [address] documented as of this encounter
--- OUTSIDE RECORDS SUMMARY | 2019-12-17 07:57 | XMS REPORT | Summary of Care ---
:1975 Author Organization [facility] Address [address] [place] [id number] Care Team Providers Name Role Phone Talha Pineda Primary Care Provider Reason for Referral Radiology Services (Routine) Status Reason Specialty Diagnoses / Referred By Referred To Procedures Contact Contact New Request Diagnostic Diagnoses Screening breast examination [place], Radiology Procedures BI SCREENING MAMMOGRAM BILATERAL CAMACHO Zaragoza [address] [place] [phone] Reason for Visit Reason Comments Well Woman Exam Encounter Details Date Type Department Care Team Description 10/01/2019 Office Visit [facility] Mila Shaikh Well woman exam with routine gynecological exam (Primary Dx); [facility] CAMACHO Screening breast examination; [address] [place] [address] Surveil renita for Depo-Provera contraception Drive, [address] [place] [phone] [place], [place] [phone] Allergies No Known Allergiesdocumented as of [...] be administered at the same time as [place] 10 if ordered. 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 [address] [place] [address]. All rights reserved. This information is not intended as a substitute for professional medical care. Always follow your healthcare professional's instructions. Patient Education Clinical Breast Exam Many health organizations recommend a yearly clinical breast exam. This exam may be done by a commercial real estate attorney, family healthcare provider, nurse practitioner, nurse sand cleaning machine operator, or specially trained nurse. Yearly breast [...] Guidelines for having clinical breast exams The [place] College of Obstetricians and Gynecologists recommends that [...] provider about what is best for you. [employer] liam reviewed this educational content on 10/17/201619998637-4039 [employer]. [address] [place] [address]. All rights reserved. This information is not [...] breast self-examination (BSE). These experts include the [place] Cancer Society and the [place] Congress of Obstetricians and Gynecologists. Some experts [...] benign. This means they are not cancer. [employer] last reviewed this educational content on 10/17/201619991936-6425 [employer]. [address] [place] [address]. All rights reserved. This information is not [...] These injections are given by a health home health care coordinator. You must not be before getting an injection. The injection is usually given during the first 5 days after the start of a menstrual period or 6 weeks after delivery of a baby. Talk to your supervisor paste mixing regarding the use of this medicine in children. Special care may be needed. These injections have been used in female children who have started having menstrual periods. What side effects may I notice from receiving this medicine? Side effects that you should report to your doctor or health home health care coordinator as soon as possible: allergic reactions like [...] attention (report to your doctor or health home health care coordinator if they continue or are bothersome): acne [...] like ethotoin, felbamate, oxcarbazepine, phenytoin, topiramate modafinil [place]'s wort What if I miss a dose? [...] be given to you by a health home health care coordinator. What should I tell my health care [...] risk for weak bones. Ask your health home health care coordinator how you can keep strong bones. You may have a change in bleeding pattern or irregular periods. Many females stop having periods while taking this drug. If you have received your injections on time, your chance of being is very low. If you think you may be , see your health home health care coordinator as soon as possible. Tell your health home health care coordinator if you want to get within the [...] orange juice and rice and soy drinks [employer] last reviewed this educational content on 12/17/201819991083-0265 [employer]. [address] [place] [address]. All rights reserved. This information is not [...] file Gets together: Not on file Attends cheondoism service: Not on file Active member of [...] 12/30/2019 Nurse Visit Obstetrics & Gynecology Nurse, [facility] Women' s Health 09/30/2020 Office Visit Obstetrics & Gynecology Mila Shaikh PA-C [address] [place] [address] [phone] Name Type Priority Associated Diagnoses Order [...] on patient's age to complete [facility] to [facility] documented as of this encounter Results Not [...] Effective Dates Phone Address Type / Group [id number] 2018-Becky [phone] [address] PPO/POS [place] - OUT OF t 7 [id number] [place] [address] documented as of this encounter
--- OUTSIDE RECORDS SUMMARY | 2019-12-17 07:57 | XMS REPORT | Continuity of Care Document ---
:1975 Author Organization [facility] [facility] Care Team Providers Name Role Phone [facility] Unavailable Un available Problems Problem Status Onset Classification Date Comments Sourc e Date Reported G43.919 - Active 06/01/19 OPID "MIGRAINE, UNSP, [place] INTRACTABLE, Impaired glucose Active 07/22/19 Problem 07/14/2018 Data Mi magalys tolerance 15 migrated Neuro,MH (disorder) from [employer] [facility] on 09/23/14. Obesity Active 07/22/19 Problem 07/14/2018 Data Mischer (disorder) 15 migrated Neuro,MH from [employer] [facility] on 09/23/14. Gynecologic Active 05/04/19 Problem 07/14/2018 Data Mischer examination 15 migrated Neuro,MH (procedure) [facility] [employer] [facility] 09/23[facility]. COUGH Active 11/25/19 Condition 11/24/2013 MH Medica l 14 Group 719.46 - JOINT Active 11/12/19 OP ID PAIN-L/LE 14 [place] ACUTE BRONCHITIS Inactive 10/31/19 Condition 11/24/2013 Medical 14 Group Acute bronchitis Resolved 10/31/19 Problem 07/14/2018 Data Mi magalys (disorder) 14 migrated Neuro,MH from [employer] [facility] on 10/02/14. ACUTE FRONTAL Inactive 09/16/19 Condition 11/24/2013 [facility] dical SINUSITIS 14 Group Acute frontal Resolved 09/16/19 Problem 07/14/2018 Data Misch er sinusitis 14 migrated Neuro,MH (disorder) from [employer] [facility] on 10/02/14. INSOMNIA Active 07/25/19 Condition 11/24/2013 Medica l 14 Group Insomnia Active 07/25/19 Problem 07/14/2018 Data Mischer (disorder) 14 migrated Neuro,MH from [employer] [facility] on 08/18/14. OSTEOARTHRITIS OF Active 06/13/19 Condition 11/24/2013 M H Medical KNEE 14 Group DEPRESSION Active 06/13/19 Condition 11/24/2013 MH Medic al 14 Group Depressive Active 06/13/19 Problem 07/14/2018 Data Mischer disorder 14 migrated Neuro,MH (disorder) from [employer] on 08/18/14. Osteoarthritis of Active 06/13/19 Problem 07/14/2018 Data M ischer knee (disorder) 14 migrated Neur o,MH from [employer] [place] on 08/18/14. DIABETES - DM Active Condition 11/24/2013 Medical Group FH HEART DISEASE Active Condition 11/24/2013 Medical Group RT KNEE MMT DOS Active MH S MR 12/23/13 UDU CHO [facility] Medications Medication Details Route Status Patient Ordering Order Source Instructions Provider Date AZITHROMYCIN 2 tablets Active MH 250 MG TABS daily for 1 014 Medical day, then 1 Group tablet daily for 4 days BENZONATATE 200 Take one Active MH MG CAPS capsule by 014 Medical mouth 3 Group times daily as needed for cough AZITHROMYCIN 1 tablet No Longer MH 500 MG TABS daily X 10 Active 014 Medical days Group BROMFED DM Take 7 mL's No Longer MH 30-2-10 MG/5ML by mouth 3 Active 014 Medica l SYRP times a day Group as needed for cough or cold CEFDINIR 300 MG Take one Active MH CAPS capsule by 014 Medical mouth twice Group daily for 10 days BROMFED DM Take two No Longer MH 30-2-10 MG/5ML teaspoons 3 Active 014 Medic al SYRP times a day Group as needed for coughing. CEFDINIR 300 MG Take one No Longer MH CAPS capsule by Active 014 Medical mouth twice Group daily for 10 days TRAZODONE HCL half a Active MH 50 MG TABS tablet or a 014 Medical whole tablet Group at night as needed for insomnia TRAZODONE HCL half a No Longer MH 50 MG TABS tablet or a Active 014 Medical whole tablet Group at night as needed for insomnia ESCITALOPRAM one by mouth Active MH OXALATE 20 MG daily 014 Medical TABS Group SILENOR 3 MG one by mouth Active MH TABS each night 014 Medical as needed Group for insomnia ESCITALOPRAM one by mouth Active OXALATE 20 MG daily 014 Medical TABS Group ESCITALOPRAM one by mouth Active OXALATE 20 MG daily 014 Medical TABS Group VOLTAREN 1 % Apply to the No Longer GEL knee area Active 014 Medical three times Group a day as needed for pain NAPROXEN 500 MG 1 tablet Active MH TABS twice daily 014 Medical as needed Group for pain ESCITALOPRAM 1 tablet Active OXALATE 10 MG daily 014 Medical TABS Group NAPROXEN 500 MG 1 tablet Active MH TABS twice daily 014 Medical as needed Group for pain NAPROXEN 500 MG 1 tablet Active MH TABS twice daily 014 Medical as needed Group for pain VOLTAREN 1 % Apply to the No Longer GEL knee area Active 014 Medical three times Group a day as needed for pain Allergies, Adverse Reactions, Alerts Substance Category Reaction Severity Reaction Status Date Comments S ource type Reported No Known Assertion Drug Misch er Medication allergy Neuro Allergies Immunizations No Data Provided for This Section Results Order Name Results Value Reference Date Interpretation Comments Antonina rce Range Chicken Catcher PAP SMEAR Normal 012 Medical Group Pathology PAP SMEAR Normal 012 Medical Group Pathology Reports No Data Provided for This Section Diagnostic Reports Report Value Date Source Brain w/wo contrast Patient Name: NGOZI LEDEZMA 06/07/2015 ALBERTO [place] MRI : 1975; Age: 40 years y/o Female MR: [id number] Study: Brain w/wo contrast MRI 05/27/2015 3:49 PM [employer]VENTURE [employer]UC[employer] TE[employer] Ordering Physician: Laurie Vuong MD Clinical Indication: G43.919 Migraine, unspecified, intractable, without status migrainosus; Comparison: None TECHNIQUE: Multiplanar pre- and post-gadolinium contrast-enhanced MRI of the brain is performed on a 1.5 Olivia magnet. Contrast: 20 cc of gadolinium was administered. FINDINGS: BRAIN PARENCHYMA: The brain parenchyma has normal signal with normal stephen-white junction, sulci, and gyri. There is no mass effect or midline shift. There is no extra-axial fluid collection or intrapare nchymal hemorrhage. The bayron us callosum appears normal. There is no diffusion weighted imaging or ADC map abnormality to suggest acute/subacute ischemia. There is no magnetic susceptibility to suggest r ecent or remote intracranial hemorrhage. There is no abnormal contrast enhancement. CEREBELLOPONTINE REGIONS AND SKULL BASE: The cerebellopontine angles appear unremarkable. The skull base, craniocervical junction, and brainstem are normal. The optic chiasm is normal. The sellar and pineal regions are unremarkable. VENTRICLES: The ventricles a re normal in size and configuration. The basilar cisterns are normal. VISUALIZED VESSELS: The veno us sinuses are grossly unremarkable. The expected intracranial flow voids are present. ORBITS, VISUALIZED PARANASAL SINUSES AND MASTOIDS: The visualized orbits are unremarkable. Small retention cyst or polyp in the right maxillary sinus. The mastoid air cells are clear. IMPRESSION: Negative pre- and postcontra st MRI of the brain without stroke, hemorrhage or mass. SL: [id number] Consultation Notes No Data Provided for This Section Discharge Summaries No Data Provided for This Section History and Physicals No Data Provided for This Section Vital Signs Vital Sign Value Date Comments Source Respitory Rate 12 11/24/2013 Medical Gr oup Temperature Oral (F) 98.3 F 11/24/2013 Medi hui Group Weight 210 11/24/2013 Medical Grou p Heart Rate 83 11/24/2013 Medical Grou p Systolic (mm Hg) 120 11/24/2013 Medical Group Diastolic (mm Hg) 79 11/24/2013 Medical Group Weight 212 10/30/2013 Medical Grou p Temperature Oral (F) 98.6 F 10/30/2013 Medi hui Group Systolic (mm Hg) 119 10/30/2013 Medical Group Diastolic (mm Hg) 76 10/30/2013 Medical Group Heart Rate 77 10/30/2013 Medical Grou p Weight 212 09/15/2013 Medical Grou p Temperature Oral (F) 98.3 F 09/15/2013 Medi hui Group Systolic (mm Hg) 121 09/15/2013 Medical Group Diastolic (mm Hg) 73 09/15/2013 Medical Group Heart Rate 75 09/15/2013 Medical Grou p Weight 206 07/24/2013 Medical Grou p Temperature Oral (F) 98.5 F 07/24/2013 Medi hui Group Heart Rate 76 07/24/2013 Medical Grou p Systolic (mm Hg) 120 07/24/2013 Medical Group Diastolic (mm Hg) 76 07/24/2013 Medical Group Height 64.5 06/12/2013 Medical Grou p Weight 202 06/12/2013 Medical Grou p Respitory Rate 18 06/12/2013 Medical Gr oup Heart Rate 86 06/12/2013 Medical Grou p Systolic (mm Hg) 117 06/12/2013 Medical Group Diastolic (mm Hg) 70 06/12/2013 Medical Group Temperature Oral (F) 98.9 F 06/12/2013 Medi hui Group Encounters Location Location Encounter Encounter Reason Attending ADM DC Stat us Source Details Type Number For Provider Date Date Visit [facility] [id number] Laurie 06/12 06/12 [place] Visit 6980 MD Jason /2013 [facility] [address] [facility] Office [id number] Klever Rendon, 07/24 07/24 Benjamin Visit 7000 MD Medical [facility] Group [facility] Office [id number] Klever Rendon, 09/15 09/15 [place] Visit 9610 MD Medical Medical [facility] Office [id number] Klever Rendon, 10/30 10/30 [place] Visit 9480 [facility] Lab Report [id number] Klever Rendon, 11/11 11/11 [place] 1810 MD Medical Medical Group [facility] Office [id number] Klever Rendon, 11/24 11/24 Benjamin Visit 1490 Medical Medical Group [facility] Outpatient [id number] NURSE 09/29 Active [facility] VISIT /2014 [place] Outpatient [id number] NURSE 12/08 Active [facility] VISIT /2014 [place] Outpatient [id number] [facility] [place] [facility] [id number] NURSE 02/23 Active [facility] VISIT /2014 Benjamin Outpatient [id number] NURSE 02/25 Active [facility] VISIT /2014 [place] Outpatient [id number] LAURIE [facility]/14 [facility] [place] [facility] [id number] [facility] [id number] LAURIE 05/27 Active [facility] Benjamin Outpatient [id number] NURSE 05/27 Active [facility] VISIT /2015 Benjamin [facility] Outpt Diag [id number] Laurie 06/06 06/07 [facility] Outpatient Services Vuong Jr /2015 [facility] [place] Outpatient [id number] Haris 06/19 Active [facility] Krell Benjamin [facility] Outside [id number] 07/10 07/12 Mis s[facility] Medical /2018 Neuro [place] Records Procedures Procedure Code Date Perfomer Comments Source vaginal Pap [id number] 03/20/2011 Normal Medical smear results Group Arthroscopy<sup> [id number] right knee Mischer 1</sup> Neuro, OPIKayy [place] Bilateral tubal [id number] [facility] Neuro, ALBERTO [place] section [id number] [facility] Neuro, ALBERTO [place] Assessment and Plan No Data Provided for This Section Plan of Care No Data Provided for This Section Social History Social History Date Source Social History TypeResponse 05/27/2015 [facility] Neur o Smoking Status Former smoker; Type: Cigarettes; Exposur e to Tobacco Smoke None; Cigarette Smoking Last 365 Days No; Reg Smoking Cessation Counseling No entered on: 05/27/15 Social History TypeResponse 05/27/2015 [facility] [place] Smoking Status Former smoker; Type: Cigarettes; Exposur e to Tobacco Smoke None; Cigarette Smoking Last 365 Days No; Reg Smoking Cessation Counseling No Family History No Data Provided for This Section Advance Directives No Data Provided for This Section Functional Status No Data Provided for This Section
--- OUTSIDE RECORDS SUMMARY | 2019-12-17 07:58 | XMS REPORT ---
:1975 Author Organization [facility] Address [address] [place] [address] Care Team Providers Name Role Phone Don Llanos Unavailable [phone] PROBLEMS Type Condition ICD9-CM CER27-AR Onset Condition SNOMED Code Notes Code Code Dates Status Problem Seasonal allergies J30.2 Active 161729021 Problem Depression with F41.8 Active 97899819 anxiety Problem Peripheral G62.9 Active 15433241 polyneuropathy Problem Carpal tunnel G56.01 Active 674440278514585 syndrome of right wrist Problem GERD without K21.9 Active 976554514 esophagitis Problem Carpal tunnel G56.02 Active 080495372796374 syndrome of left wrist Problem Migraine without aura G43.009 Active 687018244 and without status migrainosus, not intractable Problem Adult BMI 40.0-44.9 Z68.41 Active 966276539 kg/sq m Problem Bilateral carpal G56.03 Active 913729698199819 01 tunnel syndrome Problem Hypertriglyceridemia E78.1 Active 193053600 Problem Paresthesia of skin R20.2 Active 13262030 ALLERGIES No Information ENCOUNTERS from 1975 to 2019-12-10 Encounter Location Date Provider Diagnosis [facility] [address] [facility] [address] [facility] [place] [address] IMMUNIZATIONS No Information SOCIAL HISTORY Sex Assigned At : Social History Observation Description Sex Assigned At Unknown REASON FOR REFERRAL No Information VITAL SIGNS No information MEDICATIONS No Information PROCEDURES No Information RESULTS No Results REASON FOR VISIT ortho surgical request MEDICAL (GENERAL) HISTORY Type Description Date Medical History Migraine without aura and without status migrainosus, not intractable Medical History Depression with anxiety Medical History GERD without esophagitis Medical History Seasonal allergies Medical History Adult BMI 40.0-44.9 kg/sq m Medical History Peripheral polyneuropathy Surgical History Knee surgery-torn ligament 2016 Surgical History Back surgery-Nerve pinches, slipped disk 2017 Goals Section No Information Health Concerns No Information MEDICAL EQUIPMENT No Information MENTAL STATUS No Information FUNCTIONAL STATUS No Information ASSESSMENTS No Information PLAN OF TREATMENT No Information
--- OUTSIDE RECORDS SUMMARY | 2019-12-17 07:58 | XMS REPORT | Summary of Care ---
:1975 Author Organization [facility] Address [address] [place] [address] Care Team Providers Name Role Phone Talha Pineda Primary Care Provider Reason for Referral Radiology Services (Routine) Status Reason Specialty Diagnoses / Referred By Referred To Procedures Contact Contact Closed Diagnostic Diagnoses Screening breast examination Mila Shaikh, Radiology Procedures BI SCREENING MAMMOGRAM BILATERAL PA-C [address] [address] Reason for Visit Radiology Services (Routine) Status Reason Specialty Diagnoses / Referred By Referred To Procedures Contact Contact Closed Diagnostic Diagnoses Screening breast examination Mila Shaikh, Radiology Procedures BI SCREENING MAMMOGRAM BILATERAL PA-C [address] [address] Encounter Details Date Type Department Care Team Description 10/29/2019 Hospital Encounter [facility] Kaylee Shaikh y, Arrived [facility] PA-C [address] [place] [address] [phone] [place] [phone] Allergies No Known Allergiesdocumented as of this encounter (statuses as of 10/30/2019) Medications Medication Sig Dispensed Refills Start Date [...] be administered at the same time as Coats 10 if ordered. 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 documented as of this encounter Last Filed Vital Signs Not on filedocumented in this encounter Plan of Treatment Date Type Specialty Care Team Description 12/30/2019 Nurse Visit Obstetrics & Gynecology Nurse, [facility] 09/30/2020 Office Visit Obstetrics & Gynecology Mila Shaikh PA-C [address] [place] [address] [phone] Health Maintenance Due Date Last Done Comments Depression Screening 1988 DTaP,Tdap,and Td Vaccines (1 01/04/1995 - Tdap) Breast Cancer Screening 2016 (MAMMOGRAM) INFLUENZA VACCINE (#1) 2019 PAP SMEAR 09/30/2021 09/30/2018, 06/18/2009 PNEUMOCOCCAL 0-64 YEARS Aged Out No longe r eligible based COMBINED SERIES on patient's age to complete this to pic documented as of this encounter Procedures Procedure Name Priority Date/Time Associated Diagnosis Comme nts BI SCREENING Routine 10/29/2019 8:31 AM Screening breast Resu lts for this MAMMOGRAM BILATERAL CDT examination procedur e are in the results section. documented in this encounter Results BI SCREENING MAMMOGRAM BILATERAL (10/29/2019 8:31 AM CDT) Specimen Narrative Performed At This result has an attachment that is no t available. Examination: PACS BI SCREENING MAMMOGRAM BILATERAL History: Patient is 44 year old and is seen for: Routine mamm ogram screening. Computer-aided detection (CAD) utilized. Comparisons : None available Findings: The breasts are almost entirely fatty. There is no teo dence of suspicious masses, calcifications, or other abnormal findings. Impression: No mammographic evidence of malignancy. Recommendation: Annual mammographic follow-up BI-RADS Category: Both 1 - Negative Performing Organization Address [facility]/State[facility] Phone Number PACS documented in this encounter Visit Diagnoses Diagnosis Screening breast examination Other screening breast examination documented in this encounter Insurance Payer Benefit Plan Subscriber ID Effective Dates Phone Address Type / Group [facility] [id number] 2018-Becky [phone] [address] [place] PPO/[place] - OUT OF t [id number] [place] [address] documented as of this encounter
--- OUTSIDE RECORDS SUMMARY | 2019-12-17 07:58 | XMS REPORT ---
:1975 Author Organization [employer] Care Team Providers Name Role Phone Don Llanos Provider Role Unavailable Allergies, Adverse Reactions, Alerts [...] Start End Status Dosage System Date Date Lyrica [facility] 55498323625 100 MG Orally Active as dir ected BID Emgality [facility] 90973754126 120 MG/ML Active 1 ml Subcutaneous Once a month Magnesium [facility] 62269022162 200 MG Orally Active 1 ta blet twice a day with a meal Diclofenac ND 38742592875 75 MG Active TAKE ONE Sodium TABLET BY MOUTH TWICE A DAY WITH FOOD OR MILK Escitalopram [facility] 06992086309 20 MG Orally Active 1 tablet Oxalate Once a day Iron [facility] 49951221413 325 (65 Fe) MG Active 1 tab let Orally Once a day Amitriptyline ND 38822824398 100 MG Orally Active 1 tablet HCl Once a day Trazodone HCl [facility] 37603422934 50 MG Active TAKE O NE TABLET BY MOUTH AT BEDTIME Escitalopram [facility] 63083064709 20 MG Active TAKE ON E Oxalate TABLET BY MOUTH DAILY Amitriptyline [facility] 67981383038 100 MG Active TAKE O NE HCl TABLET BY MOUTH DAILY Trazodone HCl [facility] 67254770650 50 MG Orally Active 1 tablet at Once a day bedtime Diclofenac [facility] 10990706814 75 MG Orally Active 1 ta blet Sodium Twice a day PRN with viola d SEvere pain or milk Results No Known Results Summary Purpose [employer] Submission
[2019-12-17 08:19] LABS: Specific Gravity 1.015 (1.005-1.030)
[2019-12-17] MEDS ORDERED: FENTANYL CITR 100 MCG/2 ML ONE (08:27)
[2019-12-17] MEDS ORDERED: propofoL 200 MG/20 ML VIAL IV ONE ×2 (08:27)
[2019-12-17] MEDS ORDERED: ONDANSETRON 4 MG/2 ML VIAL ONE (08:28)
[2019-12-17] MEDS ORDERED: LIDOCAINE 2% MPF 5 ML VIAL ONE (08:28)
[2019-12-17] MEDS ORDERED: KETOROLAC 30 MG/ML INJ ONE (08:28)
[2019-12-17] MEDS ORDERED: MIDAZOLAM HCL 2 MG/2 ML INJ ONE (08:28)
[2019-12-17] MEDS ORDERED: NS 0.9% VIAL 40 ML ONE (08:28)
[2019-12-17] MEDS ORDERED: dexAMETHasone 10 MG/ML VIAL ONE (08:28)
[2019-12-17] MEDS ORDERED: CEFAZOLIN/SWI 1gm 1 GM/10 ML SYR ONE (08:34)
[2019-12-17] MEDS ORDERED: Ringers Lactate 1,000 ML IV ONE (08:34)
[2019-12-17] MEDS: BUPIVACAINE 0.25% PF 30 ML VIAL ONE ×2 (08:43→09:37)
--- NOTE | 2019-12-17 10:13 | P.BOP ---
Preoperative diagnosis: right carpal tunnel syndrome Postoperative diagnosis: same Primary procedure: right carpal tunnel release Note Specialist: NONE,NONE Estimated blood loss: <5 cc Specimen: none Findings: see dictation Anesthesia: Freeland Block Complications: None Implants: none Fluids & blood products: per anesthesia record; TT: 40 mins @ 300 mmHg Transferred to: Recovery Room Condition: Good
[2019-12-17] MEDS ORDERED: ROCURONIUM 50 MG/5 ML VIAL IV ONE (10:39)
[2019-12-17] MEDS ORDERED: CODEINE 30MG/APAP 300MG TAB ONE (10:43)
[2019-12-17 11:03] VITALS: BP 155/75; TEMP 97.1; O2SAT 96
--- NOTE | 2019-12-18 01:28 | OP ---
Date of Procedure: 12/17/2019 Surgeon: Don Llanos MD Preoperative Diagnosis: Right carpal tunnel syndrome. Postoperative Diagnosis: Right carpal tunnel syndrome. Procedure Performed: Right carpal tunnel release. Anesthesia: Delfina block. Complications: None. Implants: None. Tourniquet Time: 40 minutes at 300 mmHg. Indication For Procedure: Leanne is a 44-year-old female who presented to my clinic with signs, sympt oms, and EMG findings consistent with bilateral carpal tunnel syndrome, right worse than left. The p atient failed conservative treatment measures. I discussed with the patient at length risks and bene fits associated with operative and nonoperative treatment. She expressed understanding and elected t o proceed with operative treatment. Description Of Procedure: After informed consent was obtained, the patient was identified in the pre operative holding area. The right upper extremity was marked. The patient was then brought back to the operating room, transferred to the operating table in the supine fashion, and a Leonore block anesth esia was then performed. The right upper extremity was then prepped and draped in the usual sterile fashion. Time-out was initiated. The correct patient and procedure were confirmed and identified. The patient did receive her preoperative prophylactic antibiotics. Approximately, a 2.5 cm incision was made just ulnar to the thenar crease within the palm. Dissection was then taken down to the palm ar fascia. A [place] elevator was placed just deep to the palmar fascia and palmar fascia and transver se carpal ligament were then released using a 15 blade. [place] elevator was protecting the median ner ve at all times. Any remaining fascial bands were then released using a spoon-tipped Metzenbaum scis sors with the tips aimed superficially and [place] elevators deep to ensure protection of the median ne rve. After this was completed, the wound was then irrigated thoroughly with normal saline. Skin was approximated using a 5-0 Prolene. Sterile dressings were applied. The tourniquet was let down. Th e patient was awakened and transferred to PACU in stable condition. Postoperative Plan: The patient will be nonweightbearing of the right upper extremity. She will ret urn to clinic in 1 week for suture removal. CV/MODL Voice ID: [id number] Report ID: [id number]
== END 2019-12-17 10:50 | disposition home or self-care (01) ==
LOC: OR 07:35
PROVIDERS: ATTEND Orthopaedic Surgery Sports Medicine
PROC: 01N50ZZ Release Median Nerve, Open Approach (ICD-10-PCS; principal; 2019-12-17 09:00)
DX: G56.01 Carpal tunnel syndrome, right upper limb (principal); G43.909 Migraine, unspecified, not intractable, without status migrainosus; F41.8 Other specified anxiety disorders; K21.9 Gastro-esophageal reflux disease without esophagitis; G62.9 Polyneuropathy, unspecified; Z20.828 Contact with and (suspected) exposure to other viral communicable diseases
CPT/HCPCS: 36415; 71046; 80048; 81025; 85025; 85610; 85730; 93005; J0690; J1100; J2250; J2405; J2704; J3010; J7120; U0002

== ENCOUNTER 2020-01-21 05:56 | Day surgery (SDC) | payer BC ==
[2020-01-15 08:57] LABS: Absolute Lymphocytes (CBC) 2.7 K/uL (0.7-4.9); Basophils % 0.9 % (0-1.3); Hematocrit 43.3 % (36.0-45.0); Lymphocytes % 26.3 % (15.3-44.8); MPV 7.5 fL (7.6-11.3); RBC Red Blood Cell Count 4.92 M/uL (3.86-4.86)
[2020-01-15 09:09] LABS: Potassium 4.5 mmol/L (3.5-5.1)
--- OUTSIDE RECORDS SUMMARY | 2020-01-21 06:00 | XMS REPORT | Continuity of Care Document ---
:1975 Author Organization [facility] t Address [address] [place] [address] Care Team Providers Name Role Phone Nurse, Women's Health Attending Clinician Unavailable Hawa SAUER Attending Clinician Jason Walker Attending Clinician Problems Condition Condition Condition Status Onset Resolution Last Treating Co mments Source Name Details Category Date Date Treatment Clinician Date [id number] - Diagnosis Active 2015-06-07 Memoria "MIGRAINE, 3-15 07:34:00 l UNSP, G43.919 00:01: [place] INTRACTABL - 00 E, "MIGRAINE, UNSP, INTRACTABL E, Active 6 ALBERTO Vo Impaired Problem Active 2018-07-14 Mem oria glucose 5-05 06:42:01 l tolerance Impaired 00:00: Her jenkins (disorder) glucose 00 tolerance (disorder) Active 07/21/2014 Problem 07/14/2018 Data migrated from [employer] on 09/23/14. MASOUD Fernandez Obesity Problem Active 2018-07-14 Derek alfredo (disorder) 5-05 06:42:01 l Obesity 00:00: [place] (disorder) 00 Active 07/21/2014 Problem 07/14/2018 Data migrated from [employer] on 09/23/14. MASOUD Fernandez Gynecologi Problem Active 2018-07-14 M emoria c 2-16 06:42:01 l examinatio 00:00: Wally sears n Gynecologi 00 (procedure c ) examinatio n (procedure ) Active 05/04/2014 Problem 07/14/2018 Data migrated from [employer] on 09/23/14. Evy Neuro, OPID [place] COUGH Condition Active 2013-11-24 Mem oria 9-08 08:20:53 l COUGH 00:00: [place] 00 Active 11/24/2013 Condition 4 [facility] 719.46 - Diagnosis Active 2013-12-22 M emoria JOINT 11-11 07:16:00 l PAIN-L/LE 719.46 - 00:01: Her jenkins JOINT 00 PAIN-L/LE Active 11/11/2013 OPID [place] INSOMNIA Condition Active 2013-11-24 M emoria -08 08:20:53 l INSOMNIA 00:00: Wally n 00 Active 07/24/2013 Condition [facility] Insomnia Problem Active 2018-07-14 Mem oria (disorder) 5-08 06:42:01 l Insomnia 00:00: Wally n (disorder) 00 Active 07/24/2013 Problem 07/14/2018 Data migrated from [employer] on 08/18/14. Evy Hendricks, OPID [place] OSTEOARTHR Condition Active 2013-11-24 Memoria ITIS OF 06-12 08:20:53 l KNEE 00:00: [place] OSTEOARTHR 00 ITIS OF KNEE Active 06/12/2013 Condition [facility] DEPRESSION Condition Active 2013-11-24 Memoria 3-27 08:20:53 l 00:00: Benjamin DEPRESSION 00 Active 06/12/2013 Condition 4 [facility] Depressive Problem Active 2018-07-14 M emoria disorder 06-12 06:42:01 l (disorder) 00:00: Wally n Depressive 00 disorder (disorder) Active 06/12/2013 Problem 07/14/2018 Data migrated from [employer] on 08/18/14. Evy Neuro, OPID [place] Osteoarthr Problem Active 2018-07-14 M emoria itis of 06-12 06:42:01 l knee 00:00: Benjamin (disorder) Osteoarthr 00 itis of knee (disorder) Active 06/12/2013 Problem 07/14/2018 Data migrated from [employer] on 08/18/14. Evy Hendricks ALBERTO [place] FH Condition Active 2013-11-24 Mem oria DIABETES - 08:20:53 l DM FH Benjamin DIABETES - DM Active Condition 11/24/2013 Medical Group FH HEART Condition Active 2013-11-24 M emoria DISEASE 08:20:53 l FH HEART Wally n DISEASE Active Condition 11/24/2013 Medical [facility] RT KNEE Diagnosis Active 2014-06-16 Me moria MMT DOS 07:16:00 l 12/23/13 RT KNEE Wally n UDU CHO MMT DOS 12/23/13 UDU CHO Active [facility] History of Past Illness Condition Condition Condition Status Onset Resolution Last Treating Co mments Source Name Details Category Date Date Treatment Clinician Date Acute Problem Resolve 2018-07-14 2018-07-14 Memoria bronchitis d - 06:42:01 06:42:01 l (disorder) Acute 00:00: Gregoria nn bronchitis 00 (disorder) Resolved 10/30/2013 Problem 07/14/2018 Data migrated from [employer] on 10/02/14. Evy Hendricks ALBERTO [place] Acute Problem Resolve 2018-07-14 2018-07-14 Memoria frontal d 09-15 06:42:01 06:42:01 l sinusitis Acute 00:00: Wally n (disorder) frontal 00 sinusitis (disorder) Resolved 09/15/2013 Problem 07/14/2018 Data migrated from [employer] on 10/02/14. Evy Hendricks ALBERTO [place] ACUTE Condition Inactiv 2013-11-24 2013-11-24 Memoria BRONCHITIS e 8-14 08:20:53 08:20:53 l ACUTE 00:00: Benjamin BRONCHITIS 00 Inactive 10/30/2013 Condition 4 [facility] ACUTE Condition Inactiv 2013-11-24 2013-11-24 Memoria FRONTAL e 6 08:20:53 08:20:53 l SINUSITIS ACUTE 00:00: Wally n FRONTAL 00 SINUSITIS Inactive 09/15/2013 Condition 4 [facility] Allergies, Adverse Reactions, Alerts Allergy Allergy Status Severity Reaction(s) Onset Inactive Treating Comm ents Source Name Type Date Date Clinician No Known No Known Active Samanthaori a Medicati Medicati l on on Benjamin Allergie Allergie s s Social History Smoking Status Start Date Stop Date Source Social History 2015-05-27 21:03:15 2015-05-27 21:03:15 [facility] Medications Ordered Filled Start Stop Current Ordering Indication Dosage Frequency Signature Comments Components Source Medication Medication Date Date Medication? Clinician (SIG) Name Name Emgality Emgality 2018- 2020- No Don [address] 0-03 09-27 [place] [facility] 00:00 Memoria 00 :00 [facility] Lyrica Lyrica Yes Don as [facility] 2-20 [place] directed [facility] - 00:00: Memoria 00 [facility] AZITHROMYCI Yes 2 tablets M emoria N 250 MG 9-08 daily for l TABS 00:00: 1 day, [place] 00 then 1 tablet daily for 4 days BENZONATATE Yes Take one Me moria 200 MG CAPS 9-08 capsule by l 00:00: mouth 3 Benjamin 00 times daily as needed for cough AZITHROMYCI No 1 tablet Me moria N 500 MG 8-14 daily X 10 l TABS 00:00: days [place] 00 BROMFED DM No Take 7 Memor ia 30-2-10 8-14 mL's by l MG/5ML SYRP 00:00: mouth 3 Her jenkins 00 times a day as needed for cough or cold CEFDINIR Yes Take one Memor ia 300 MG CAPS 6-30 capsule by l 00:00: mouth Benjamin 00 twice daily for 10 days BROMFED DM No Take two Mem oria 30-2-10 6-30 teaspoons l MG/5ML SYRP 00:00: 3 times a H ermann 00 day as needed for coughing. CEFDINIR No Take one Memor ia 300 MG CAPS 6-30 capsule by l 00:00: mouth [place] 00 twice daily for 10 days TRAZODONE Yes half a Memori a HCL 50 MG 6-04 tablet or l TABS 00:00: a whole [place] 00 tablet at night as needed for [...] 5-08 mouth each l 00:00: night as [place] 00 needed for insomnia ESCITALOPRA Yes one by Derek alfredo M OXALATE 5-08 mouth l 20 MG TABS 00:00: daily Wally n 00 ESCITALOPRA Yes one by Derek alfredo M OXALATE 5-08 mouth l 20 MG TABS 00:00: daily Wally n 00 VOLTAREN 1 No Apply to Mem oria % GEL 3-27 the knee l 00:00: area three [place] 00 times a day as needed for pain NAPROXEN Yes 1 tablet Memor ia 500 MG TABS 3-27 twice l 00:00: daily as [place] 00 needed for pain ESCITALOPRA Yes 1 tablet Me moria M OXALATE 3-27 daily l 10 MG TABS 00:00: Benjamin 00 NAPROXEN Yes 1 tablet Memor ia 500 MG TABS 3-27 twice l 00:00: daily as [place] 00 needed for pain NAPROXEN Yes 1 tablet Memor ia 500 MG TABS 3-27 twice l 00:00: daily as Benjamin 00 needed for pain VOLTAREN 1 No Apply to Mem oria % GEL 3-27 the knee l 00:00: area three [place] 00 times a day as needed for pain Magnesium Magnesium Yes Don [address] [facility] [place] [facility] Iron Iron Yes Don [address] [facility] Trazodone Trazodone Yes Don [address] [facility] HCl HCl [place] at bedtime [facility] ent Clinics Amitriptyli Amitriptyli Yes Don TAKE ONE [facility] ne HCl ne HCl [place] TABLET BY [facility]ukes - MOUTH Memoria DAILY l Outpati ent Clinics Escitalopra Escitalopra Yes Don TAKE ONE [facility] m Oxalate m Oxalate [place] TABLET BY [facility]ukes - MOUTH Memoria DAILY l Outpati ent Clinics Diclofenac Diclofenac 2019- No Don [address] [facility] Sodium Sodium 09-18 [place] with food Lukes - 00:00 or milk Memoria :00 l Outpati ent Clinics Immunizations Ordered Filled Immunization Date Status Comments Sour e Immunization Name Name Flucguevaravax - Flucguevaravax - 2018-12-[address] [facility] - multidose vial multidose vial 00:00:00 Memori al Outpatient Clinics Vital Signs Vital Name Observation Time Observation Value Comments Source Respitory Rate 2013-11-24 13:20:53 Memori al [place] Temperature Oral (F) 2013-11-24 13:20:53 98.3 F [facility] Weight 2013-11-24 13:20:53 [facility] Heart Rate 2013-11-24 13:20:53 [facility] Systolic (mm Hg) 2013-11-24 13:20:53 Derek rial Benjamin Diastolic (mm Hg) 2013-11-24 13:20:53 Mem orial Benjamin Weight 2013-10-30 13:43:21 [facility] [place] Temperature Oral (F) 2013-10-30 13:43:21 98.6 F [facility] [place] Systolic (mm Hg) 2013-10-30 13:43:21 Derek rial Benjamin Diastolic (mm Hg) 2013-10-30 13:43:21 Mem orial Benjamin Heart Rate 2013-10-30 13:43:21 [facility] Weight 2013-09-15 21:03:31 [facility] Temperature Oral (F) 2013-09-15 21:03:31 98.3 F [facility] [place] Systolic (mm Hg) 2013-09-15 21:03:31 Derek rial [place] Diastolic (mm Hg) 2013-09-15 21:03:31 Mem orial [place] Heart Rate 2013-09-15 21:03:31 [facility] [place] Weight 2013-07-24 15:46:32 [facility] [place] Temperature Oral (F) 2013-07-24 15:46:32 98.5 F [facility] [place] Heart Rate 2013-07-24 15:46:32 [facility] [place] Systolic (mm Hg) 2013-07-24 15:46:32 Derek rial [place] Diastolic (mm Hg) 2013-07-24 15:46:32 Mem orial [place] Height 2013-06-12 18:29:01 [facility] [place] Weight 2013-06-12 18:29:01 [facility] [place] Respitory Rate 2013-06-12 18:29:01 Memori al [place] Heart Rate 2013-06-12 18:29:01 [facility] [place] Systolic (mm Hg) 2013-06-12 18:29:01 Derek rial Benjamin Diastolic (mm Hg) 2013-06-12 18:29:01 Mem orial Benjamin Temperature Oral (F) 2013-06-12 18:29:01 98.9 F [facility] [place] Procedures Procedure Date / Time Performed Performing Clinician [facility] selma vaginal Pap smear results 2011-03-20 16:56:54 Me morial [place] Arthroscopy<sup>1</sup> Mina Alexander Bilateral tubal ligation Marika Alexander section Mina Lo n Encounters Start End Encounter Admission Attending Care Care Encounter Source Date/Time Date/Time Type Type Clinicians Facility Department ID 2020-01-19 2020-01-19 [facility] [id number] 2020-01-08 2020-01-08 [facility] [id number] [facility] 2019-12-30 2019-12-30 Nurse Nurse, [facility] [id number] 07:58:34 08:18:50 Visit [facility] [place] [id number] [facility] [id number] Professio [phone] [place] [address] Building 2019-12-25 2019-12-25 Outpatient [facility] [id number] [facility] 2019-11-27 2019-11-27 [facility] [id number] 08[facility]00[facility]00 08:00:00 [facility] 2019-11-27 2019-11-27 Outpatient [facility]LMLC [facility] [id number] [facility]00 [facility] 2019-10-29 2019-10-29 [facility] [id number] 08:00:00 23:59:00 Encounter Mila Barahonaton [id number] [place] [id number] [place] [id number] 2019-10-28 2019-10-28 [facility] [id number] 09:30[facility]00 09:30:00 [facility] 2019-10-16 2019-10-16 [facility] [id number] 09:00:00 09:00:00 [facility] 2019-10-01 2019-10-01 [place] [id number] 08:34:48 09:13:54 Visit Milashayla Sol [id number] [place] [id number] [facility] [phone] [address] 2019-07-29 2019-07-29 [facility] [id number] 14:15:00 14:15:00 [facility] 2019-07-17 2019-07-17 [facility] [id number] 15:00:00 15:00:00 [facility] 2019-05-29 2019-05-29 [facility] [id number] 14:30:00 14:30:00 [facility] 2019-05-26 2019-05-26 [facility] [id number] 08:00:00 08:00:00 t [facility] Jason Jason ent Clinics 2019-04-30 2019-04-30 [facility] [id number] 16:54:00 16:54:00 [place] [facility] [facility] Medicine Outpati ent Clinics 2019-04-30 2019-04-30 [facility] [id number] 15:00:00 15:00:00 t [place] [facility] [facility] - Drive [facility] Medicine Outpati ent Clinics 2019-01-20 2019-01-20 [facility] [id number] 14:15:00 14:15:00 t [place] [facility] - [employer] [facility] Medicine Outpati ent Clinics 2018-12-19 2018-12-19 [facility] [id number] 10:00:00 10:00:00 t [place] [facility] - [employer] [facility] Medicine [facility] 2018-11-20 2018-11-20 [facility] [id number] 08:00:00 08:00:00 t [place] [facility] - [employer] [facility] Medicine Outpati ent Clinics 2018-07-10 2018-07-11 Outpatient MHMISCHER MHMISCHER [id number] 10:05:00 23:59:59 02 2018-07-10 2018-07-11 Outpatient MHMISCHER MHMISCHER [id number] 10:05:00 23:59:59 02 2018-06-20 2018-06-20 [facility] [id number] 13:00:00 13:00:00 t [place] [facility] [facility] - [employer] [facility] Medicine Outpati ent Clinics 2018-05-08 2018-05-08 [facility] [id number] 14:00:00 14:00:00 t [place] [facility] - [employer] [facility] Medicine Outpati ent Clinics 2018-04-17 2018-04-17 [facility] [id number] 10:15:00 10:15:00 t [place] [facility] - Drive [facility] Medicine Outpati ent Clinics 2015-06-07 2015-06-07 Outpatient MARIA ESTHER Gomez GURDEEP [id number] 07:23:00 23:59:00 Nomi 01 Results Test Description Test Time Test Comments Results Result Comments Source Global Process Owner 2011-03-20 [facility] nn 16:56:54 Pathology 2011-03-20 [facility] 16:56:54
--- OUTSIDE RECORDS SUMMARY | 2020-01-21 06:00 | XMS REPORT | Continuity of Care Document ---
:1975 Author Organization [employer] Care Team Providers Name Role Phone [facility] Unavailable Un available Problems Problem Status Onset Classification Date Comments Sourc e Date Reported G43.919 - Active 06/01/19 OPID "MIGRAINE, UNSP, 16 [place] INTRACTABLE, Impaired glucose Active 07/22/19 Problem 07/14/2018 Data Mi magalys tolerance 15 migrated Neuro,MH (disorder) from [facility] on 09/23/14. Obesity Active 07/22/19 Problem 07/14/2018 Data Mischer (disorder) 15 migrated Neuro,MH from [employer] [facility] on 09/23/14. Gynecologic Active 05/04/19 Problem 07/14/2018 Data Mischer examination 15 migrated Neuro,MH (procedure[facility]. COUGH Active 11/25/19 Condition 11/24/2013 MH Medica l 14 Group 719.46 - JOINT Active 11/12/19 OP ID PAIN-L/LE 14 [place] ACUTE BRONCHITIS Inactive 10/31/19 Condition 11/24/2013 Medical 14 Group Acute bronchitis Resolved 10/31/19 Problem 07/14/2018 Data Mi magalys (disorder) 14 migrated Neuro,MH from [employer] [facility] on 10/02/14. ACUTE FRONTAL Inactive 09/16/19 Condition 11/24/2013 [facility] dical SINUSITIS 14 Group Acute frontal Resolved 09/16/19 Problem 07/14/2018 Data Misch er sinusitis 14 migrated Neuro,MH (disorder) from [facility] on 10/02/14. INSOMNIA Active 07/25/19 Condition 11/24/2013 Medica l 14 Group Insomnia Active 07/25/19 Problem 07/14/2018 Data Mischer (disorder) 14 migrated Neuro,MH from [employer] [facility] on 08/18/14. OSTEOARTHRITIS OF Active 06/13/19 Condition 11/24/2013 M H Medical KNEE 14 Group DEPRESSION Active 06/13/19 Condition 11/24/2013 MH Medic al 14 Group Depressive Active 06/13/19 Problem 07/14/2018 Data Mischer disorder 14 migrated Neuro,MH (disorder) from [employer] on 08/18/14. Osteoarthritis of Active 06/13/19 Problem 07/14/2018 Data M ischer knee (disorder) 14 migrated Neur o,MH from [employer] [place] on 08/18/14. 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 SL: [id number] Consultation Notes No Data Provided for This [...] For Provider Date Date Visit [facility] Office [phone] Laurie 06/12 06/12 [place] Visit 6980 MD Jason /2013 Medic al Medical [facility] Office [id number] Klever Rendon, 07/24 07/24 [place] Visit 7000 [facility] Office [phone] Klever Rendon, 09/15 09/15 [place] Visit 9610 MD Medical [facility] Office [id number] Klever Rendon, 10/30 10/30 Benjamin Visit 9480 [facility] Lab Report [id number] Klever Rendon, 11/11 11/11 [place] 1810 MD Medical Medical Group [facility] Office [id number] Klever Rendon, 11/24 11/24 Benjamin Visit 1490 Medical Medical Group [facility] Outpatient [id number] NURSE 09/29 Active [facility] VISIT /2014 [place] Outpatient [id number] NURSE 12/08 Active [facility] VISIT /2014 [place] Outpatient [id number] LAURIE 02/[facility] [place] [facility] [id number] NURSE 02/23 Active [facility] VISIT /2014 [place] Outpatient [id number] NURSE 02/25 Active [facility] VISIT /2014 [place] Outpatient [id number] LAURIE 05/14 [facility] [place] [facility] [id number] LAURIE 05/26 [facility] [place] Out[facility] [id number] LAURIE 05/27 Active [facility] Benjamin Outpatient [id number] NURSE 05/27 Active [facility] VISIT /2015 Benjamin [facility] Outpt Diag [id number] Laurie 06/06 06/07 OP[facility] Outpatient Services Vuong Jr /2015 [facility] [place] Outpatient [id number] Haris 06/19 Active [facility] Krell [place] [facility] Outside [id number] 07/10 07/12 Mis sara Neurology Medical /2018 Neuro [place] Records Procedures Procedure Code Date Perfomer Comments Source vaginal Pap [id number] 03/20/2011 Normal Medical smear results Group Arthroscopy<sup> [id number] right knee Mischer 1</sup> Neuro, OPIKayy [place] Bilateral tubal [id number] [facility] Neuro, ALBERTO [place] section [id number] Mischer Neuro, ALBERTO [place] Assessment and Plan [...]
--- OUTSIDE RECORDS SUMMARY | 2020-01-21 06:01 | XMS REPORT ---
[...] End Status Dosage System Date Date Lyrica [facility] 60563234650 100 MG Orally Active as dir ected BID Emgality [facility] 53322039025 120 MG/ML Active 1 ml Subcutaneous Once a month Magnesium [facility] 51407036953 200 MG Orally Active 1 ta blet twice a day with a meal Diclofenac ND 77564797062 75 MG Active TAKE ONE Sodium TABLET BY MOUTH TWICE A DAY WITH FOOD OR MILK Escitalopram [facility] 40278404781 20 MG Orally Active 1 tablet Oxalate Once a day Iron [facility] 49458317317 325 (65 Fe) MG Active 1 tab let Orally Once a day Amitriptyline ND 32516760451 100 MG Orally Active 1 tablet HCl Once a day Trazodone HCl [facility] 61711494950 50 MG Active TAKE O NE TABLET BY MOUTH AT BEDTIME Escitalopram [facility] 16370644621 20 MG Active TAKE ON E Oxalate TABLET BY MOUTH DAILY Amitriptyline [facility] 87510432147 100 MG Active TAKE O NE HCl TABLET BY MOUTH DAILY Trazodone HCl [facility] 29616267570 50 MG Orally Active 1 tablet at Once a day bedtime Diclofenac [facility] 22767004424 75 MG Orally Active 1 ta blet Sodium Twice a day PRN with viola d SEvere pain or milk Results No Known Results Summary Purpose [employer]ClinicalWorks Submission
--- OUTSIDE RECORDS SUMMARY | 2020-01-21 06:01 | XMS REPORT ---
:1975 Author Organization [facility] Address [address] [facility] [place] [address] Care Team Providers Name Role Phone Viet Unavailable [phone] PROBLEMS Type Condition ICD9-CM [id number] Onset Condition SNOMED Code Notes Code Code Dates Status Problem Seasonal allergies J30.2 Active 528652720 Problem Depression with F41.8 Active 31500670 anxiety Problem Peripheral G62.9 Active 16068408 polyneuropathy Problem Carpal tunnel G56.01 Active 442254335540714 syndrome of right wrist Problem GERD without K21.9 Active 749792581 esophagitis Problem Carpal tunnel G56.02 Active 852230943972236 syndrome of left wrist Problem Migraine without aura G43.009 Active 266320843 and without status migrainosus, not intractable Problem Adult BMI 40.0-44.9 Z68.41 Active 637011364 kg/sq m Problem Bilateral carpal G56.03 Active 684373522632290 01 tunnel syndrome Problem Hypertriglyceridemia E78.1 Active 848501492 Problem Paresthesia of skin R20.2 Active 06424037 ALLERGIES No Known Allergies ENCOUNTERS from 1975 to 2019-12-29 Encounter Location Date Provider Diagnosis [facility] [address] Dec, Don Llanos Carp al tunnel [facility] [address] [place], syndrome of right [facility] [address] wrist G56.01 IMMUNIZATIONS Vaccine Route Administration Date Status Flucelvax - multidose vial IM Intramuscular Dec 19, 2018 Admi nistered SOCIAL HISTORY Tobacco Use: Social History Observation Description Date Details (start date - stop date) Former Smoker Sex Assigned At : Social History Observation Description Sex Assigned At Unknown PHQ9 Question Answer Notes Little interest or pleasure in doing things Several days Feeling down, depressed, or hopeless More than half the days Trouble falling or staying asleep or sleeping too much More than half the days Feeling tired or having little energy Several days Poor appetite or overeating Several days Feeling bad about yourself, or that you are a failure, More than half the days or have let yourself or your family down Trouble concentrating on things, such as reading the Several days newspaper or watching television Moving or speaking so slowly that other people could Not at all have noticed; or the opposite, being so fidgety or restless that you have been moving around a lot more than usual Total Score 10 Interpretation Moderate Depression Thoughts that you would be better off or of Not at all hurting yourself in some way Alcohol Screen Question Answer Notes Did you have a drink containing alcohol in Yes the past year? Points 2 Interpretation Negative How many drinks did you have on a typical 1 or 2 (0 points) day when you were drinking in the past year? How often did you have a drink containing Two to four times a month (2 points) alcohol in the past year? Tobacco Use/Smoking Question Answer Notes Are you a former smoker Additional Findings: Tobacco Non-User Current non-smoker REASON FOR REFERRAL No Information VITAL SIGNS Height 66 in Dec, Weight 245 lbs Dec, Temperature 97.5 degrees Fahrenheit Dec, BMI 39.54 kg/m2 Dec, Blood pressure systolic 124 mm Hg Dec, Blood pressure diastolic 84 mm Hg Dec, MEDICATIONS Medication SIG (Take, Route, Start Date End Date Status Frequency, Duration) Diclofenac Sodium 75 MG TAKE ONE TABLET BY MOUTH Not-Taking TWICE A DAY WITH FOOD OR MILK Magnesium 200 MG 1 tablet with a meal Orally Active twice a day Trazodone HCl 50 MG 1 tablet at bedtime Orally Active Once a day for 30 day(s) Lyrica 100 MG as directed Orally BID for Active 30 days Emgality 120 MG/ML 1 ml Subcutaneous Once a Active month for 30 day(s) Trazodone HCl 50 MG TAKE ONE TABLET BY MOUTH AT Not-Taking BEDTIME Amitriptyline HCl 100 MG TAKE ONE TABLET BY MOUTH Not-Taking DAILY Amitriptyline HCl 100 MG 1 tablet Orally Once a day Active for 30 days Escitalopram Oxalate 20 MG 1 tablet Orally Once a day Active for 30 days Escitalopram Oxalate 20 MG TAKE ONE TABLET BY MOUTH Not-Taking DAILY Diclofenac Sodium 75 MG 1 tablet with food or milk Active Orally Twice a day PRN SEvere pain for 30 days Iron 325 (65 Fe) MG 1 tablet Orally Once a day Active for 30 day(s) PROCEDURES No Information RESULTS No Results REASON FOR VISIT 1ST P.O. RIGHT CARPAL TUNNEL RELEASE S/P 9 DAYS MEDICAL (GENERAL) HISTORY Type Description Date Medical History Migraine without aura and without status migrainosus, not intractable Medical History Depression with anxiety Medical History GERD without esophagitis Medical History Seasonal allergies Medical History Adult BMI 40.0-44.9 kg/sq m Medical History Peripheral polyneuropathy Surgical History Knee surgery-torn ligament 2015 Surgical History Back surgery-Nerve pinches, slipped disk 2016 Surgical History right hand CTR 12/17/19 Goals Section No Information Health Concerns No Information MEDICAL EQUIPMENT No Information MENTAL STATUS No Information FUNCTIONAL STATUS No Information ASSESSMENTS Encounter Date Diagnosis Notes Dec, Carpal tunnel syndrome of right wrist (I CD-10 - G56.01) PLAN OF TREATMENT Treatment Notes Assessment Notes Clinical Notes Carpal tunnel syndrome of right -sutures removed without wrist complication-work on gentle ROM exercises-f/u in 2 weeks for wound and motion check-discussed left carpal tunnel release next month if she continues to improve and demonstrates independence with OMAE Next Appt Details 2 Weeks-po op Rt Hand Reason:discuss Lef t hand-CTR planning for Provider Name:Don Llanos 2020-01-08 0 1:30:00 PM, [address], [place], [address], Provider Name:Talha Pineda 2020-01-20 0 9:15:00 AM, [address], [address], [place], [address], Provider Name:Talha Pineda 2020-01-27 0 9:30:00 AM, [address], [address], [place], [address], Follow Up:2 Weeks-po op Rt Handdiscuss Left hand-CTR planning for Insurance Providers Payer Name Payer Payer Insured Name Patient Coverage Covera End Address Phone Relationship to Start Date Murali e Insured Blue Cross [phone] O[address] Berman 2018 and Giancarlo [id number] [facility] [id number]
--- OUTSIDE RECORDS SUMMARY | 2020-01-21 06:01 | XMS REPORT ---
:1975 Author Organization [employer] Care Team Providers Name Role Phone Edwin [facility] Provider Role Unavailable Allergies, Adverse Reactions, Alerts [...] End Status Dosage System Date Date Escitalopram [facility] 38728881043 20 MG Orally Active 1 tablet Oxalate Once a day Escitalopram [facility] 59760913252 20 MG Active TAKE ON E Oxalate TABLET BY MOUTH DAILY Amitriptyline ND 23344656280 100 MG Active TAKE O NE HCl TABLET BY MOUTH DAILY Diclofenac ND 27090389931 75 MG Orally Active 1 ta blet Sodium Twice a day PRN with viola d SEvere pain or milk Iron [facility] 92630888475 325 (65 Fe) MG Active 1 tab let Orally Once a day Lyrica [facility] 20471178592 100 MG Orally Active as dir ected BID Trazodone HCl [facility] 79328553800 50 MG Orally Active 1 tablet at Once a day bedtime Emgality [facility] 25273211386 120 MG/ML Active 1 ml Subcutaneous Once a month Trazodone HCl [facility] 51750088410 50 MG Active TAKE O NE TABLET BY MOUTH AT BEDTIME Amitriptyline [facility] 52102560829 100 MG Orally Active 1 tablet HCl Once a day Magnesium [facility] 67175959278 200 MG Orally Active 1 ta blet twice a day with a meal Diclofenac [facility] 57840402158 75 MG Active TAKE ONE Sodium TABLET BY MOUTH TWICE A DAY WITH FOOD OR MILK Results No Known Results Summary Purpose eClinicalWorks Submission
--- OUTSIDE RECORDS SUMMARY | 2020-01-21 06:02 | XMS REPORT ---
:1975 Author Organization [facility] Address [address] [place] [address] Care Team Providers Name Role Phone Llanos Unavailable [phone] PROBLEMS Type Condition ICD9-CM [id number] Onset Condition SNOMED Code Notes Code Code Dates Status Problem Seasonal allergies J30.2 Active 522433177 Problem Depression with F41.8 Active 15537637 anxiety Problem Peripheral G62.9 Active 55186443 polyneuropathy Problem Carpal tunnel G56.01 Active 493037573730263 syndrome of right wrist Problem GERD without K21.9 Active 771997129 esophagitis Problem Carpal tunnel G56.02 Active 325838004480020 syndrome of left wrist Problem Migraine without aura G43.009 Active 544231411 and without status migrainosus, not intractable Problem Adult BMI 40.0-44.9 Z68.41 Active 299286698 kg/sq m Problem Bilateral carpal G56.03 Active 079778287887099 01 tunnel syndrome Problem Hypertriglyceridemia E78.1 Active 342111294 Problem Paresthesia of skin R20.2 Active 49521943 ALLERGIES No Known Allergies ENCOUNTERS from 1975 to 2020-01-19 Encounter Location Date Provider Diagnosis [facility] [address] Jan, Jeannette Llanos [facility] [place] [address] IMMUNIZATIONS Vaccine Route Administration Date Status Flucelvax [...] No Information VITAL SIGNS No information MEDICATIONS Medication SIG (Take, Route, Start Date End Date Status Frequency, Duration) Trazodone HCl 50 MG TAKE ONE TABLET BY MOUTH Not-Taking AT BEDTIME Amitriptyline HCl 100 MG 1 tablet Orally Once a Active day for 30 days Magnesium 200 MG 1 tablet with a meal Act sharon Orally twice a day Escitalopram Oxalate 20 MG TAKE ONE TABLET BY MOUTH Not-Taking DAILY Diclofenac Sodium 75 MG TAKE ONE TABLET BY MOUTH Not-Taking TWICE A DAY WITH FOOD OR MILK Acetaminophen-Codeine #3 Not -Taking Acetaminophen-Codeine #3 1 PO Q 4-6 HRS PRN PAIN Jan, Active 300-30 MG Lyrica 100 MG as directed Orally BID Acti ve for 30 days Iron 325 (65 Fe) MG 1 tablet Orally Once a Active day for 30 day(s) Escitalopram Oxalate 20 MG 1 tablet Orally Once a Active day for 30 days Diclofenac Sodium 75 MG 1 tablet with food or Active milk Orally Twice a day PRN SEvere pain for 30 days Trazodone HCl 50 MG 1 tablet at bedtime A ctive Orally Once a day for 30 day(s) Pregabalin Active Emgality 120 MG/ML 1 ml Subcutaneous Once a Active month for 30 day(s) Amitriptyline HCl 100 MG TAKE ONE TABLET BY MOUTH Not-Taking DAILY PROCEDURES No Information RESULTS No Results REASON FOR VISIT RX FOR SURGERY MEDICAL (GENERAL) HISTORY Type Description Date Medical History Migraine without aura and without status migrainosus, not intractable Medical History Depression with anxiety Medical History GERD without esophagitis Medical History Seasonal allergies Medical History Adult BMI 40.0-44.9 kg/sq m Medical History Peripheral polyneuropathy Surgical History Knee surgery-torn ligament 2015 Surgical History Back surgery-Nerve pinches, slipped disk 2017 Surgical History right hand CTR 12/17/19 Goals Section No Information Health Concerns No Information MEDICAL EQUIPMENT No Information MENTAL STATUS No Information FUNCTIONAL STATUS No Information ASSESSMENTS No Information PLAN OF TREATMENT Medication Medication Name Sig Start Date Stop Date Acetaminophen-Codeine #3 300-30 MG 1 PO Q 4-6 HRS PRN PAIN 02 No v, 2019 Appt Details Provider Name:Talha Pineda 2020-01-20 0 9:15:00 AM, [address], [place], [address], Provider Name:Talha Pineda 2020-01-26 0 1:20:00 PM, [address], [place], [address], Insurance Providers Payer Name Payer Payer Insured Name Patient Coverage Covera End Address Phone Relationship to Start Date Murali e Insured [employer] [phone] Oc Berman 2018 and Giancarlo [id number] [address] [place] [phone]
--- OUTSIDE RECORDS SUMMARY | 2020-01-21 06:02 | XMS REPORT ---
:1975 Author Organization [facility] Address [address], [facility] 1 [place] [address] Care Team Providers Name Role Phone Llanos Unavailable [phone] PROBLEMS Type Condition ICD9-CM [id number] Onset Condition SNOMED Code Notes Code Code Dates Status Problem Seasonal allergies J30.2 Active 919976611 Problem Depression with F41.8 Active 97571518 anxiety Problem Peripheral G62.9 Active 15549079 polyneuropathy Problem Carpal tunnel G56.01 Active 150097461397819 syndrome of right wrist Problem GERD without K21.9 Active 484631166 esophagitis Problem Carpal tunnel G56.02 Active 026413071908208 syndrome of left wrist Problem Migraine without aura G43.009 Active 920405417 and without status migrainosus, not intractable Problem Adult BMI 40.0-44.9 Z68.41 Active 137827430 kg/sq m Problem Bilateral carpal G56.03 Active 367817022671369 01 tunnel syndrome Problem Hypertriglyceridemia E78.1 Active 115041577 Problem Paresthesia of skin R20.2 Active 01979151 ALLERGIES No Known Allergies ENCOUNTERS from 1975 to 2020-01-12 Encounter Location Date Provider Diagnosis [facility] [address] Dec, Don Llanos Carp [facility] tunnel [facility] [address] [place], [place] [address] wrist G56.01 ; Carpal tunnel syndrome of lef t wrist G56.02 ; Left wrist pain M25. 532 and Right wrist pain M25.531 IMMUNIZATIONS Vaccine Route Administration Date Status Flucelvax [...] in Dec, Weight 245 lbs Dec, Temperature 97.1 degrees Fahrenheit Dec, BMI 39.54 kg/m2 Dec, Blood pressure systolic 126 mm Hg Dec, Blood pressure diastolic 86 mm Hg Dec, MEDICATIONS Medication SIG (Take, Route, Start Date End Date Status Frequency, Duration) Acetaminophen-Codeine #3 Not -Taking Escitalopram Oxalate 20 MG 1 tablet Orally Once a day Active for 30 days Diclofenac Sodium 75 MG TAKE ONE TABLET BY MOUTH Not-Taking TWICE A DAY WITH FOOD OR MILK Pregabalin Active Iron 325 (65 Fe) MG 1 tablet Orally Once a day Active for 30 day(s) Amitriptyline HCl 100 MG TAKE ONE TABLET BY MOUTH Not-Taking DAILY Trazodone HCl 50 MG 1 tablet at bedtime Orally Active Once a day for 30 day(s) Trazodone HCl 50 MG TAKE ONE TABLET BY MOUTH AT Not-Taking BEDTIME Amitriptyline HCl 100 MG 1 tablet Orally Once a day Active for 30 days Lyrica 100 MG as directed Orally BID for Active 30 days Diclofenac Sodium 75 MG 1 tablet with food or milk Active Orally Twice a day PRN SEvere pain for 30 days Magnesium 200 MG 1 tablet with a meal Orally Active twice a day Escitalopram Oxalate 20 MG TAKE ONE TABLET BY MOUTH Not-Taking DAILY Emgality 120 MG/ML 1 ml Subcutaneous Once a Active month for 30 day(s) PROCEDURES No Information RESULTS No Results REASON FOR VISIT PO RT HAND (CTR) MEDICAL (GENERAL) HISTORY Type Description Date Medical [...] Information ASSESSMENTS Encounter Date Diagnosis Notes Dec, Left wrist pain (ICD-10 - M25.532) Dec, Carpal tunnel syndrome of left wrist (IC D-10 - G56.02) Dec, Right wrist pain (ICD-10 - M25.531) Dec, Carpal tunnel syndrome of right wrist (I CD-10 - G56.01) PLAN OF TREATMENT Treatment Notes Assessment Notes Clinical Notes Carpal tunnel syndrome of right -incision well healed-progre ss with wrist activities as tolerated-f/u as needed Carpal tunnel syndrome of left -patient with continued left hand wrist and wrist symptoms from carpal tunnel syndrome-failed conservative treatment measures including night splints-symptoms interfere with ADLs-will proceed with left carpal tunnel release-risks and benefits associated with the procedure were discussed at length and she expressed understanding and elected to proceed with surgery. Next Appt Details f/u 1 week postop left carpal tunnel rel ease Reason: Provider Name:Talha Pineda, 2020-01-20 0 9:15:00 AM, [address], [place], [address], Provider Name:Talha Pineda 2020-01-26 0 1:20:00 PM, [address], [place], [address], Insurance Providers Payer Name Payer Payer Insured Name Patient Coverage Covera ge End Address Phone Relationship to Start Date Murali e Insured [employer] [phone] Berman 2018 and Giancarlo [id number] [address] [facility] [phone]
--- OUTSIDE RECORDS SUMMARY | 2020-01-21 06:02 | XMS REPORT | Summary of Care ---
:1975 Author Organization [facility] Address [address] [place] [address] Care Team Providers Name Role Phone Talha Pineda Primary Care Provider Reason for Visit Reason Comments INJECTION depo Encounter Details Date Type Department Care Team Description 12/30/2019 Nurse Visit [facility] Nadine Shaikh PA-C [address] [place] [address] Encounter for Healthcare- [place] Nurse, [facility] Women's Health management and [address] [place] [address] depo-Provera (Primary [place], [place]) [address] Allergies No Known Allergiesdocumented as of this encounter (statuses as of 12/30/2019) Medications Medication Sig Dispensed Refills Start Date [...] be administered at the same time as [place] 10 if ordered. 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 documented as of this encounter Last Filed Vital Signs Vital Sign Reading Time Taken Comments Blood Pressure 129/89 12/30/2019 8:11 AM CDT Pulse 84 12/30/2019 8:11 AM CDT Temperature 36.7 C (98 F) 12/30/2019 8:11 AM CDT Respiratory Rate 18 12/30/2019 8:11 AM CDT Oxygen Saturation - - Inhaled Oxygen Concentration - - Weight 114.6 kg (252 lb 9.6 oz) 12/30/2019 8:11 AM CDT Height 167.6 cm (5' 6") 12/30/2019 8:11 AM CDT Body Mass Index 40.77 12/30/2019 8:11 AM CDT documented in this encounter Patient Instructions Patient InstructionsLenora Zafar RN - 12/30/2019 8:00 AM CDT Patient Education Medroxyprogesterone injection [Contraceptive] Brand Names: [...] These injections are given by a health healthcare administrator. You must not be before getting an injection. The injection is usually given during the first 5 days after the start of a menstrual period or 6 weeks after delivery of a baby. Talk to your trombone slide assembler regarding the use of this medicine in children. Special care may be needed. These injections have been used in female children who have started having menstrual periods. What side effects may I notice from receiving this medicine? Side effects that you should report to your doctor or health healthcare administrator as soon as possible: allergic reactions like [...] attention (report to your doctor or health healthcare administrator if they continue or are bothersome): acne [...] like ethotoin, felbamate, oxcarbazepine, phenytoin, topiramate modafinil Jefferson's wort What if I miss a dose? [...] be given to you by a health healthcare administrator. What should I tell my health care [...] risk for weak bones. Ask your health healthcare administrator how you can keep strong bones. You may have a change in bleeding pattern or irregular periods. Many females stop having periods while taking this drug. If you have received your injections on time, your chance of being is very low. If you think you may be , see your health healthcare administrator as soon as possible. Tell your health healthcare administrator if you want to get within the next year. The effect of this medicine may last a long time after you get your last injection. NOTE:This sheet is a summary. It may not cover all possible information. If you have questions aboutthis medicine, talk to your doctor, pharmacist, or health care provider. Copyright 2018 Elsevier documented in this encounter Progress Notes Lenora Zafar RN - 12/30/2019 8:00 AM CDT44 year old female has been identified by and name. Verbal consent has been obtained by patientto have an injection of Depo Provera, as ordered by the provider. Date of last Depo Provera injection: 10/01/2019 Last Pap Smear: 2019 Encounter Diagnosis: v25.49 The site was cleaned with an alcohol swab and given intramuscularly (IM) in the right deltoid. A band aid dressing was then applied to the injection site. The patient tolerated the procedure well . documented in this encounter Plan of Treatment Date Type Specialty Care Team Description 03/23/2020 Nurse Visit Obstetrics & Gynecology Nurse, [facility] Women' s Health 09/30/2020 Office Visit Obstetrics & Gynecology Mila Shaikh PA-C [address] [place] [address] [phone] Health Maintenance Due Date Last Done Comments Depression Screening 1988 DTaP,Tdap,and Td Vaccines (1 01/04/1995 - Tdap) INFLUENZA VACCINE (#1) 2019 Breast Cancer Screening 10/28/2020 10/29/2019 (MAMMOGRAM) PAP SMEAR 09/30/2021 09/30/2018, 06/18/2009 PNEUMOCOCCAL 0-64 YEARS Aged Out No longe r eligible based COMBINED SERIES on patient's age to complete this to [facility] documented as of this encounter Results Not on filedocumented in this encounter Visit Diagnoses Diagnosis Encounter for management and injection o f depo-Provera - Primary Surveillance of other previously prescri bed contraceptive method documented in this encounter Administered Medications Medication Order MAR Action Action Date Dose Rate Site medroxyPROGESTERone Given 12/30/2019 8:15 150 mg Right (DEPO-PROVERA) injection 150 AM CDT Deltoid-IM mg 150 mg, Intramuscular, ONCE, 1 dose, 12/30/19 at 0915, Routine documented in this encounter Insurance Payer Benefit Plan Subscriber ID Effective Dates Phone Address Type / Group BCBS OF [facility] [id number] 2018-Becky [phone] [address] PPO/POS [place] - OUT OF t 7 [id number] [place] [address] documented as of this encounter
[2020-01-21] MEDS ORDERED: Ringers Lactate 1,000 ML IV ONE (06:23)
[2020-01-21] MEDS ORDERED: CEFAZOLIN/SWI 1gm 1 GM/10 ML SYR ONE (06:23)
[2020-01-21] MEDS ORDERED: MIDAZOLAM HCL 2 MG/2 ML INJ ONE (07:16)
[2020-01-21] MEDS ORDERED: LIDOCAINE 2% MPF 5 ML VIAL ONE ×2 (07:16→07:24)
[2020-01-21] MEDS ORDERED: dexAMETHasone 4 MG/ML VIAL ONE (07:16)
[2020-01-21] MEDS ORDERED: propofoL 200 MG/20 ML VIAL IV ONE ×4 (07:16→07:58)
[2020-01-21] MEDS ORDERED: KETOROLAC 30 MG/ML INJ ONE (07:16)
[2020-01-21] MEDS ORDERED: ONDANSETRON 4 MG/2 ML VIAL ONE (07:16)
[2020-01-21] MEDS ORDERED: FENTANYL CITR 100 MCG/2 ML ONE (07:16)
[2020-01-21] MEDS ORDERED: BUPIVACAINE 0.25% PF 10 ML VIAL ONE (07:19)
[2020-01-21] MEDS ORDERED: NS 0.9% VIAL 40 ML ONE (07:24)
--- NOTE | 2020-01-21 08:14 | P.BOP ---
Preoperative diagnosis: left carpal tunnel syndrome Postoperative diagnosis: same Primary procedure: left open carpal tunnel release Assistant Scientist: NONE,NONE Estimated blood loss: 2 cc Specimen: none Findings: see dictation Anesthesia: Delfina Block Complications: None Implants: none Fluids & blood products: per anesthesia record; TT: 30 mins @ 300 mmHg Transferred to: Recovery Room Condition: Good
[2020-01-21 08:53] VITALS: BP 135/91; TEMP 98.1; O2SAT 95
--- NOTE | 2020-01-23 09:02 | P.OP ---
Preoperative diagnosis: left carpal tunnel syndrome Postoperative diagnosis: same Primary procedure: left open carpal tunnel release Secondary procedure: none Anesthesia: Delfina Block Estimated blood loss: 5 cc Specimen: none Findings: see dictation Operative Technique: Indication For Procedure: Leanne is a 45-year-old female who presented to my clinic with signs, symptoms, and EMG findings consistent with left carpal tunnel syndrome. The patient failed conservative treatment measures. I discussed with the patient at length risks and benefits associated with operative and nonoperative treatment. She expressed understanding and elected to proceed with operative treatment. Description Of Procedure: After informed consent was obtained, the patient was identified in the preoperative holding area. The left upper extremity was marked. The patient was then brought back to the operating room, transferred to the operating table in the supine fashion, and a [place] block anesthesia was then performed. The left upper extremity was then prepped and draped in the usual sterile fashion. Time-out was initiated. The correct patient and procedure were confirmed and identified. The patient did receive her preoperative prophylactic antibiotics. Approximately, a 2.5 cm incision was made just ulnar to the thenar crease within the palm. Dissection was then taken down to the palmar fascia. A Marshall elevator was placed just deep to the palmar fascia and palmar fascia and transverse carpal ligament were then released using a 15 blade. Marshall elevator was protecting the median nerve at all times. Any remaining fascial bands were then released using a blunt-tipped Metzenbaum scissors with the tips aimed superficially and Marshall elevators deep to ensure protection of the median nerve. After this was completed, the wound was then irrigated thoroughly with normal saline. Skin was approximated using a 5-0 Prolene. Sterile dressings were applied. The tourniquet was let down. The patient was awakened and transferred to PACU in stable condition. Postoperative Plan: The patient will be nonweightbearing of the left upper extremity. She will return to clinic in 1 week for suture removal. Complications: None Implants: none Fluids & blood products: per anesthesia record; TT: 30 mins @ 300 mmHg Transferred to: Recovery Room Condition: Good
== END 2020-01-21 08:47 | disposition home or self-care (01) ==
LOC: OR 05:56
PROVIDERS: ATTEND Orthopaedic Surgery Sports Medicine
PROC: 01N50ZZ Release Median Nerve, Open Approach (ICD-10-PCS; principal; 2020-01-21 07:30)
DX: G56.02 Carpal tunnel syndrome, left upper limb (principal); Z20.828 Contact with and (suspected) exposure to other viral communicable diseases; K21.9 Gastro-esophageal reflux disease without esophagitis; F41.8 Other specified anxiety disorders
CPT/HCPCS: 85025; 80048; 36415; 81025; 64721; U0002; J2704 ×3; J1100; J2250; J3010; J0690; J7120; J2405

== ENCOUNTER 2020-07-12 09:09 | Emergency (ER) | payer BC ==
--- OUTSIDE RECORDS SUMMARY | 2020-07-12 09:11 | XMS REPORT | Continuity of Care Document ---
:1975 Author Organization [facility] t Address [address] [place] [address] Care Team Providers Name Role Phone Nurse, Women's Health Attending Clinician Unavailable Jason Walker Attending Clinician Problems This patient has no known problems. Allergies, Adverse Reactions, Alerts This patient has no known allergies or adverse reactions. Medications Ordered Filled Start Stop Current Ordering Indication Dosage Frequency Signature Comments Components Source Medication Medication Date Date Medication? Clinician (SIG) Name Name Emgality Emgality 2018-03 2020- No Don [address] 0-03 [facility] [place] [facility]00 [facility] Lyrica Lyrica Yes Don as [facility] 2-20 [place] [facility] 00 [facility] Magnesium Magnesium Yes Don [address] [facility] [place] with a [facility] Iron Iron Yes Don [address] [facility] Trazodone Trazodone Yes Don [address] [facility] HCl HCl [place] at bedtime [facility] Amitriptyli Amitriptyli Yes Dno TAKE ONE [facility] ne HCl ne HCl [place] TABLET BY [facility]TH [facility] Escitalopra Escitalopra Yes Don TAKE [...] Comments Sourc e Immunization Name Name Grace Edwards - 2018-12-[address] [facility] Procedures This patient has no known procedures. Encounters Start End Encounter Admission Attending Care Care Encounter Source Date/Time Date/Time Type Type Clinicians Facility Department ID 2020-07-07 2020-07-07 Outpatient [facility] [id number] [facility] 2020-06-21 2020-06-21 Outpatient [facility] [id number] [facility] 2020-06-15 2020-06-15 Nurse Nurse, [facility] [id number] 09:01:38 09:16:35 Visit [facility] [id number] [facility] [id number] Olivia [id number] [address] 2020-03-09 2020-03-09 Outpatient [facility] [id number] [facility] 2020-02-10 2020-02-10 Outpatient [facility] [id number] [facility] 2020-01-29 2020-01-29 Outpatient [facility] [id number] [facility] 2020-01-19 2020-01-19 Outpatient [facility] [id number] [facility] 2020-01-08 2020-01-08 Outpatient [facility] [id number] [facility] 2019-12-25 2019-12-25 Outpatient [facility] [id number] [facility] 2019-11-27 2019-11-27 [facility] [id number] [address] 08:00:00 08:00:00 [facility] 2019-11-27 2019-11-27 Outpatient [facility] [id number] [facility]00 [facility] 2019-10-28 2019-10-28 [facility] [id number] 09:30:00 09:30:00 t [facility] 2019-10-16 2019-10-16 [facility] [id number] 09:00:00 09:00:00 t [facility] 2019-07-29 2019-07-29 [facility] [id number] 14:15:00 14:15:00 t [facility] 2019-07-17 2019-07-17 [facility] [id number] 15:00:00 15:00:00 t [facility] 2019-05-29 2019-05-29 [facility] [id number] 14:30:00 14:30:00 [facility] 2019-05-26 2019-05-26 [facility] [id number] 08:00:00 08:00:00 t [facility] 2019-04-30 2019-04-30 [facility] [id number] 16:54:00 16:54:00 [place] [employer] [facility] - [facility] Outpati ent Clinics 2019-04-30 2019-04-30 [facility] [id number] 15:00:00 15:00:00 [place] [employer] [facility] - Drive [facility] Outpati ent Clinics 2019-01-20 2019-01-20 [facility] [id number] 14:15:00 14:15:00 [place] [employer] [facility] - [facility] Clinics 2018-12-19 2018-12-19 [facility] [id number] 10:00:00 10:00:00 [place] [employer] [facility] - [facility] Clinics 2018-11-20 2018-11-20 [facility] [id number] 08:00:00 08:00:00 [place] [employer] [facility] - [employer] [facility] Outpati ent Clinics 2018-07-10 2018-07-11 Outpatient [facility] MHMIS[facility]ER [id number] 10:05:00 23:59:59 02 2018-07-10 2018-07-11 Outpatient [facility] MHMIS[facility]ER [id number] 10:05:00 23:59:59 02 2018-06-20 2018-06-20 [facility] [id number] 13[facility]00:00 13:00:00 [place] [employer] [facility] - [employer] [facility] Outpat[facility] ent Clinics 2018-05-08 2018-05-08 [facility] [id number] 14:00:00 14:00:00 [place] [employer] [facility] - [facility] Outpati ent Clinics 2018-04-17 2018-04-17 [facility] [id number] 10:15:00 10:15:00 [place] [employer] [facility] - Drive [facility] Clin[facility] 2015-06-07 2015-06-07 Outpatient MARIA ESTHER Gomez MHOIP [id number] 07:23:00 23:59:00 Nomi 01 Results This patient has no known results.
--- NOTE | 2020-07-12 10:39 | RAD REPORT ---
EXAM DESCRIPTION: CT - Head Brain Wo Cont - 07/12/2020 10:34 am CLINICAL HISTORY: HEADACHE Headache, drowsiness COMPARISON: No comparisons TECHNIQUE: All CT scans are performed using dose optimization technique as appropriate and may inclu de automated exposure control or mA/KV adjustment according to patient size. FINDINGS: No intracranial hemorrhage, hydrocephalus or extra-axial fluid collection.No areas of brai n edema or evidence of midline shift. The paranasal sinuses and mastoids are clear. The calvarium is intact. IMPRESSION: No acute intracranial abnormality.
[2020-07-12] MEDS ORDERED: MECLIZINE HCL 12.5 MG TAB ONE ×2 (10:46→10:47)
[2020-07-12] MEDS ORDERED: METOCLOPRAMIDE 10 MG/2mL INJ ONE (10:46)
[2020-07-12] MEDS ORDERED: KETOROLAC 30 MG/ML INJ ONE (10:46)
[2020-07-12] MEDS ORDERED: NA CHLORIDE 0.9% 1,000 ML ONE (10:46)
--- NOTE | 2020-07-12 12:19 | EDPHYS ---
Physician Documentation [facility] Name: Leanne Berman Age: 45 yrs Sex: Female : 1975 Arrival Date: 07/12/2020 Time: 09:11 Bed 17 Private MD: Talha Pineda ED Physician Elijah Drummond HPI: 07/12 10:22 This 45 yrs old Female presents to ER via Ambulatory with complaints of pm1 Headache. 10:22 The patient complains of pain to the forehead. The patient describes the headache as pm1 aching. Onset: The symptoms/episode began/occurred 3 day(s) ago. Associated signs and symptoms: Pertinent positives: Photophobia Vertigo Pertinent negatives: fever, neck stiffness. Severity of symptoms: in the emergency department the pain is actually worse. Headache History: The patient has had previous headaches and this one is similar to previous episodes, and this one is more severe than previous episodes. The symptoms are alleviated by nothing. the symptoms are aggravated by lights, noise. The patient has not recently seen a physician. Historical: - Allergies: 09:12 No Known Allergies; ll1 - PMHx: 09:19 Migraines; ll1 - PSHx: 09:19 knee SX, back SX, bilat. carpal tunnel SX; ll1 - Immunization history:: Flu vaccine is up to date. - Social history:: Smoking status: Patient denies any tobacco usage or history of. ROS: 10:22 Constitutional: Negative for fever, chills, and weight loss, Eyes: Negative for injury, pm1 pain, redness, and discharge, ENT: Negative for injury, pain, and discharge, Neck: Negative for injury, pain, and swelling, Cardiovascular: Negative for chest pain, palpitations, and edema, Respiratory: Negative for shortness of breath, cough, wheezing, and pleuritic chest pain, Back: Negative for injury and pain, MS/Extremity: Negative for injury and deformity, Skin: Negative for injury, rash, and discoloration. 10:22 Abdomen/GI: Positive for nausea, Negative for abdominal pain, vomiting, diarrhea. 10:22 Neuro: Positive for headache. Exam: 10:22 Constitutional: This is a well developed, well nourished patient who is awake, alert, pm1 and in no acute distress. Head/Face: Normocephalic, atraumatic. 10:22 Back: No spinal tenderness. No costovertebral tenderness. Full range of motion. 10:22 Skin: Warm, dry with normal turgor. Normal color with no rashes, no lesions, and no evidence of cellulitis. MS/ Extremity: Pulses equal, no cyanosis. Neurovascular intact. Full, normal range of motion. 10:22 Cardiovascular: Exam negative for acute changes, Rate: normal, Rhythm: regular, Pulses: no pulse deficits are appreciated. 10:22 Respiratory: Exam negative for acute changes, respiratory distress, shortness of breath, Breath sounds: are clear throughout. 10:22 Abdomen/GI: Inspection: abdomen appears normal, Palpation: abdomen is soft and non-tender, in all quadrants. 10:22 Neuro: Orientation: is normal, Mentation: is normal, Cranial nerves: CN II- XII are normal as tested, bilateral horizontal nystagmus. Vital Signs: 09:19 BP 154 / 77; Pulse 107; Resp 18; Temp 98.5; Pulse Ox 98% ; Weight 117.93 kg; Height 5 ll1 ft. 5 in. (165.10 cm); Pain 8/10; 12:00 BP 125 / 80; Pulse 95; Resp 16; Pulse Ox 98% ; bp 09:19 Body Mass Index 43.27 (117.93 kg, 165.10 cm) ll1 MDM: 10:10 Patient medically screened. pm1 12:18 Data reviewed: vital signs. Data interpreted: Pulse oximetry: on room air is 98 %. pm1 Interpretation: normal. Counseling: I had a detailed discussion with the patient and/or guardian regarding: the historical points, exam findings, and any diagnostic results supporting the discharge/admit diagnosis, radiology results, the need for outpatient follow up, a neurologist, to return to the emergency department if symptoms worsen or persist or if there are any questions or concerns that arise at home. 12:18 ED course: Pain 3/10 and vertigo resolved. pm1 07/12 10:22 Order name: CT Head Brain wo Cont; Complete Time: 10:50 pm1 07/12 10:22 Order name: IV Saline Lock; Complete Time: 10:38 pm1 Administered Medications: 10:48 Drug: Meclizine 50 mg Route: PO; sr5 12:31 Follow up: Response: No adverse reaction; Marked relief of symptoms bp 10:50 Drug: NS 0.9% 1000 ml Route: IV; Rate: 1000 ml; Site: left antecubital; sr5 12:32 Follow up: IV Status: Completed infusion; IV Intake: 1000ml bp 10:53 Drug: TORadol (ketorolac) 30 mg Route: IVP; Site: left antecubital; sr5 12:31 Follow up: Response: No adverse reaction; Marked relief of symptoms bp 10:54 Drug: Reglan (metoCLOPramide) 10 mg Route: IVP; Site: left antecubital; sr5 12:31 Follow up: Response: No adverse reaction; Marked relief of symptoms bp Disposition: 07/13 07:07 Co-signature as Attending Physician, Elijah Drummond MD I agree with the assessment and noe plan of care. Disposition: 07/12/20 12:19 Discharged to Home. Impression: Benign paroxysmal vertigo, Headache. - Condition is Stable. - Discharge Instructions: Benign Positional Vertigo, General Headache Without Cause. - Prescriptions for Fiorinal 50- 325-40 mg Oral Capsule - take 1 capsule by ORAL route every 4 hours As needed - not to exceed 6 capsules per day; 20 capsule. Meclizine 25 mg Oral Tablet - take 1 tablet by ORAL route every 8 hours As needed; 30 tablet. - Medication Reconciliation Form, Thank You Letter, Antibiotic Education, Prescription Opioid Use form. - Follow up: Emergency Department; When: As needed; Reason: Worsening of condition. Follow up: Darrion Agrawal MD; When: 2 - 3 days; Reason: Recheck today's complaints, Continuance of care, Re-evaluation by your physician. - Problem is new. - Symptoms have improved. Signatures: Dispatcher [employer] Elijah Zhong MD MD cha Marinas, Patrick, DL BRICK YARD HAND pm1 Jos Obrien RN RN sr5 Hans Looney RN RN Cherelle Garcia RN RN ll1 Corrections: (The following items were deleted from the chart) 07/12 12:33 12:19 07/12/2020 12:19 Discharged to Home. Impression: Benign paroxysmal vertigo; bp Headache. Condition is Stable. Forms are Medication Reconciliation Form, Thank You Letter, Antibiotic Education, Prescription Opioid Use. Follow up: Emergency Department; When: As needed; Reason: Worsening of condition. Follow up: Darrion Agrawal; When: 2 - 3 days; Reason: Recheck today's complaints, Continuance of care, Re-evaluation by your physician. Problem is new. Symptoms have improved. pm1
--- NOTE | 2020-07-12 12:19 | ER ---
Nurse's Notes [facility] Name: Leanne Berman Age: 45 yrs Sex: Female : 1975 Arrival Date: 07/12/2020 Time: 09:11 Bed 17 Private MD: Talha Pineda Diagnosis: Benign paroxysmal vertigo;Headache Presentation: 07/12 09:19 Chief complaint: Patient states: Migraine VITAL for 2 days. + nausea. Dizziness also, not ll1 usual for her to have dizziness with migraines. No known fever. Coronavirus screen: Client denies travel out of the [place] in the last 14 days. headache, nausea, Client presents with at least one sign or symptom that may indicate coronavirus-19. Standard/surgical mask placed on the client. Ebola Screen: Patient denies travel to an Ebola-affected area in the 21 days before illness onset. Initial Sepsis Screen: Does the patient meet any 2 criteria? HR > 90 bpm. No. Patient's initial sepsis screen is negative. Does the patient have a suspected source of infection? Yes: Other: VITAL. Risk Assessment: Do you want to hurt yourself or someone else? Patient reports no desire to harm self or others. Onset of symptoms was July 11, 2020. 09:19 Method Of Arrival: Ambulatory ll1 09:19 Acuity: NIYAH 3 ll1 Triage Assessment: 10:10 Headache History: The patient has had previous headaches and this one is similar to bp previous episodes. General: Appears in no apparent distress. uncomfortable, obese, Behavior is cooperative, appropriate for age, anxious. Pain: Complains of pain in head Pain currently is 7 out of 10 on a pain scale. Pain began 1 day ago. Also complains of no other associated symptoms. EENT: No deficits noted. Neuro: Level of Consciousness is awake, alert, obeys commands, Oriented to Appropriate for age. Cardiovascular: No deficits noted. Respiratory: No deficits noted. GI: No signs and/or symptoms were reported involving the gastrointestinal system. : No signs and/or symptoms were reported regarding the genitourinary system. Derm: No deficits noted. Musculoskeletal: No deficits noted. Historical: - Allergies: 09:12 No Known Allergies; ll1 - PMHx: 09:19 Migraines; ll1 - PSHx: 09:19 knee SX, back SX, bilat. carpal tunnel SX; ll1 - Immunization history:: Flu vaccine is up to date. - Social history:: Smoking status: Patient denies any tobacco usage or history of. Screenin:00 Abuse screen: Denies threats or abuse. Denies injuries from another. Nutritional bp screening: No deficits noted. Tuberculosis screening: No symptoms or risk factors identified. Fall Risk None identified. Total Barber Fall Scale indicates High Risk Score (45 or more points). Assessment: 10:10 General: SEE TRIAGE NOTE. bp 12:00 Reassessment: Patient and/or family updated on plan of care and expected duration. Pain bp level reassessed. Patient is alert, oriented x 3, equal unlabored respirations, skin warm/dry/pink. Patient states feeling better. 12:15 Reassessment: Patient and/or family updated on plan of care and expected duration. Pain bp level reassessed. Patient is alert, oriented x 3, equal unlabored respirations, skin warm/dry/pink. Patient states feeling better. 12:32 Reassessment: PT D/C HOME AMBULATORY WITH FAMILY, DX WITH VITAL AND VERTIGO. bp Vital Signs: 09:19 BP 154 / 77; Pulse 107; Resp 18; Temp 98.5; Pulse Ox 98% ; Weight 117.93 kg; Height 5 ll1 ft. 5 in. (165.10 cm); Pain 8/10; 12:00 BP 125 / 80; Pulse 95; Resp 16; Pulse Ox 98% ; bp 09:19 Body Mass Index 43.27 (117.93 kg, 165.10 cm) ll1 ED Course: 09:11 Patient arrived in ED. am2 09:11 Talha Pineda, is Private Physician. am2 09:12 Arm band placed on. ll1 09:21 Triage completed. ll1 10:09 Dusty Esquivel NP is PHCP. pm1 10:09 Elijah Drummond MD is Attending Physician. pm1 10:26 Hans Looney, MARII is Primary Nurse. bp 10:32 CT Head Brain wo Cont In Process Unspecified. EDMS 10:57 Warm blanket given. sr5 10:57 Inserted saline lock: 20 gauge in left antecubital area, using aseptic technique. sr5 11:00 Patient has correct armband on for positive identification. Bed in low position. Call bp light in reach. Side rails up X2. Adult w/ patient. 12:15 No provider procedures requiring assistance completed. IV discontinued, intact, bp bleeding controlled, No redness/swelling at site. Pressure dressing applied. 12:19 Darrion Agrawal MD is Referral Physician. pm1 Administered Medications: 10:48 Drug: Meclizine 50 mg Route: PO; sr5 12:31 Follow up: Response: No adverse reaction; Marked relief of symptoms bp 10:50 Drug: NS 0.9% 1000 ml Route: IV; Rate: 1000 ml; Site: left antecubital; sr5 12:32 Follow up: IV Status: Completed infusion; IV Intake: 1000ml bp 10:53 Drug: TORadol (ketorolac) 30 mg Route: IVP; Site: left antecubital; sr5 12:31 Follow up: Response: No adverse reaction; Marked relief of symptoms bp 10:54 Drug: Reglan (metoCLOPramide) 10 mg Route: IVP; Site: left antecubital; sr5 12:31 Follow up: Response: No adverse reaction; Marked relief of symptoms bp Intake: 12:32 IV: 1000ml; Total: 1000ml. bp Outcome: 12:15 Discharged to home ambulatory, with family. bp 12:15 Condition: stable 12:15 Discharge instructions given to patient, Instructed on discharge instructions, follow up and referral plans. medication usage, Demonstrated understanding of instructions, follow-up care, medications, Prescriptions given X 2. 12:19 Discharge ordered by . pm1 12:33 Patient left the ED. bp Signatures: Dispatcher [employer] EDMS Dusty Esquivel, DL [employer] pm1 Jos Obrien RN RN sr5 Kristie Avila am2 Hans Looney, RN RN bp Cherelle Montes De Oca RN RN ll1
[2020-07-12 12:40] VITALS: TEMP 98.5; O2SAT 98
[2020-07-12 12:41] VITALS: BP 125/80
== END 2020-07-12 12:33 | disposition home or self-care (01) ==
LOC: ER 09:09
DX: H81.10 Benign paroxysmal vertigo, unspecified ear (principal)
CPT/HCPCS: 70450; J2765; J7030; 96361; 96374; 96375; 99284

== ENCOUNTER 2020-10-16 05:19 | Inpatient (IN) | payer BC ==
--- OUTSIDE RECORDS SUMMARY | 2020-10-16 05:24 | XMS REPORT | Continuity of Care Document ---
:1975 Author Organization [facility] t Address [address] [place] [address] Care Team Providers Name Role Phone Nurse, Women's Health Attending Clinician Unavailable Jason Walker Attending Clinician Problems Condition Condition Condition Status Onset Resolution Last Treating Co mments Source Name Details Category Date Date Treatment Clinician Date G43.919 - Diagnosis Active 2015-06-07 Memoria "MIGRAINE, 3-15 07:34:00 l UNSP, G43.919 00:01: Benjamin INTRACTABL - 00 E, "MIGRAINE, UNSP, INTRACTABL E, Active 6 MH ALBERTO Vo Impaired Problem Active 2018-07-14 Mem oria glucose 5-05 06:42:01 l tolerance Impaired 00:00: Her jenkins (disorder) glucose 00 tolerance (disorder) Active 07/21/2014 Problem 07/14/2018 Data migrated from [facility] on 09/23/14. MASOUD Fernandez Obesity Problem Active 2018-07-14 Derek alfredo (disorder) 5-05 06:42:01 l Obesity 00:00: Benjamin (disorder) 00 Active 07/21/2014 Problem 07/14/2018 Data migrated from [facility] on 09/23/14. MASOUD Fernandez Gynecologi Problem Active 2018-07-14 Ashwin smith 2-16 06:42:01 l examinatio 00:00: Wally n n Gynecologi 00 (procedure c ) examinatio n (procedure ) Active 05/04/2014 Problem 07/14/2018 Data migrated from [facility] on 09/23/14. Evy Hendricks, OPID [place] COUGH Condition Active 2013-11-24 Mem oria 9- 08:20:53 l COUGH 00:00: Benjamin 00 Active 11/24/2013 [facility] 719.46 - Diagnosis Active 2013-12-22 M emoria JOINT 11-11 07:16:00 l PAIN-L/LE 719.46 - 00:01: Her jenkins JOINT 00 PAIN-L/LE Active 11/11/2013 OP[facility] INSOMNIA Condition Active 2013-11-24 M emoria 07-24 08:20:53 l INSOMNIA 00:00: Wally n 00 Active 07/24/2013 [facility] Insomnia Problem Active 2018-07-14 Mem oria (disorder) 07-24 06:42:01 l Insomnia 00:00: Wally n (disorder) 00 Active 07/24/2013 Problem 07/14/2018 Data migrated from [facility] on 08/18/14. Evy Hendricks OPID [place] OSTEOARTHR Condition Active 2013-11-24 Memoria ITIS OF 06-12 08:20:53 l KNEE 00:00: Benjamin OSTEOARTHR 00 ITIS OF KNEE Active 06/12/2013 [facility] DEPRESSION Condition Active 2013-11-24 Memoria 06-12 08:20:53 l 00:00: [place] DEPRESSION 00 Active 06/12/2013 [facility] Depressive Problem Active 2018-07-14 M emoria disorder 06-12 06:42:01 l (disorder) 00:00: Wally n Depressive 00 disorder (disorder) Active 06/12/2013 Problem 07/14/2018 Data migrated from [facility] on 08/18/14. Evy Hendricks OPID [place] Osteoarthr Problem Active 2018-07-14 M emoria itis of 06-12 06:42:01 l knee 00:00: Benjamin (disorder) Osteoarthr 00 itis of knee (disorder) Active 06/12/2013 Problem 07/14/2018 Data migrated from [facility] on 08/18/14. Evy Hendricks [place]y [place] FH Condition Active 2013-11-24 Mem oria DIABETES - 08:20:53 l DM [place] DIABETES - DM Active Condition 11/24/2013 [facility] FH HEART Condition Active 2013-11-24 M emoria DISEASE 08:20:53 l FH HEART Wally n DISEASE Active Condition 11/24/2013 [facility] RT KNEE Diagnosis Active 2014-06-16 Me moria MMT DOS 07:16:00 l 12/23/13 RT KNEE Wally n UDU CHO MMT DOS 12/23/13 UDU CHO Active [facility] Acute Problem Resolve 2018-07-14 2018-07-14 Memoria bronchitis d - 06:42:01 06:42:01 l (disorder) Acute 00:00: Gregoria nn bronchitis 00 (disorder) Resolved 10/30/2013 Problem 07/14/2018 Data migrated from [facility] on 10/02/14. Evy Hendricks ALBERTO [place] Acute Problem Resolve 2018-07-14 2018-07-14 Memoria frontal d 09-15 06:42:01 06:42:01 l sinusitis Acute 00:00: Wally n (disorder) frontal 00 sinusitis (disorder) Resolved 09/15/2013 Problem 07/14/2018 Data migrated from [facility] on 10/02/14. Evy Hendricks ALBERTO [place] History of Past Illness Condition Condition Condition Status Onset Resolution Last Treating Co mments Source Name Details Category Date Date Treatment Clinician Date ACUTE Condition Inactiv 2013-11-24 2013-11-24 Memoria BRONCHITIS e 8- 08:20:53 08:20:53 l ACUTE 00:00: Benjamin BRONCHITIS 00 Inactive 10/30/2013 Condition 4 [facility] ACUTE Condition Inactiv 2013-11-24 2013-11-24 Memoria FRONTAL e 09-15 08:20:53 08:20:53 l SINUSITIS ACUTE 00:00: Wally n FRONTAL 00 SINUSITIS Inactive 09/15/2013 [facility] Allergies, Adverse Reactions, Alerts This patient has no known allergies or adverse reactions. Social History Smoking Status Start Date Stop Date Source Social History 2015-05-27 21:03:15 2015-05-27 21:03:15 [facility] Medications Ordered Filled Start Stop Current Ordering Indication Dosage Frequency Signature Comments Components Source Medication Medication Date Date Medication? Clinician (SIG) Name Name Emgality Emgality 2018-03 2020- No Don [address] 0-03 - [place] [facility]00 Memoria 00 :00 [facility] Lyrica Lyrica Yes Don as [facility]- [place] [facility] - 00:[facility]: Memoria 00 [facility] AZITHROMYCI Yes 2 tablets M emoria N 250 MG 9-08 daily for l TABS 00:00: 1 day, [place] 00 then 1 tablet daily for 4 days BENZONATATE Yes Take one Me moria 200 MG CAPS 9-08 capsule by l 00:00: mouth 3 [place] 00 times daily as needed for cough AZITHROMYCI No 1 tablet Me moria N 500 MG 8-14 daily X 10 l TABS 00:00: days [place] 00 BROMFED DM No Take 7 Memor [...] CAPS 6-30 capsule by l 00:00: mouth [place] 00 twice daily for 10 days TRAZODONE Yes half a Memori a HCL 50 MG 6-04 tablet or l TABS 00:00: a whole [place] 00 tablet at night as needed for [...] 5-08 mouth each l 00:00: night as [place] 00 needed for insomnia ESCITALOPRA Yes one by Derek alfredo M OXALATE 5-08 mouth l 20 MG TABS 00:00: daily Wally n ESCITALOPRA Yes one by Derek alfredo M OXALATE 5-08 mouth l 20 MG TABS 00:00: daily Wally n 00 VOLTAREN 1 No Apply to Mem oria % GEL 3-27 the knee l 00:00: area three [place] 00 times a day as needed for pain NAPROXEN Yes 1 tablet Memor ia 500 MG TABS 3-27 twice l 00:00: daily as [place] 00 needed for pain ESCITALOPRA Yes 1 tablet Me moria M OXALATE 3-27 daily l 10 MG TABS 00:00: [place] 00 NAPROXEN Yes 1 tablet Memor ia 500 MG TABS 3-27 twice l 00:00: daily as Benjamin 00 needed for pain NAPROXEN Yes 1 tablet Memor ia 500 MG TABS 3-27 twice l 00:00: daily as [place] 00 needed for pain VOLTAREN 1 No Apply to Mem oria % GEL 3-27 the knee l 00:00: area three [place] 00 times a day as needed for pain Magnesium Magnesium Yes Don [address] [facility] [place] with a [facility] - meal [facility] Iron Iron Yes Don [address] [facility] [place] [facility] - [facility] Trazodone Trazodone Yes Don [address] HCl HCl [place] at bedtime [facility] Amitriptyli Amitriptyli Yes Don TAKE ONE [facility] ne HCl ne HCl [place] TABLET BY [facility] - MOUTH Memoria DAILY l [facility] Escitalopra Escitalopra Yes Don TAKE [...] Oral (F) 2013-11-24 13:20:53 98.3 F [facility] [place] Weight 2013-11-24 13:20:53 [facility] [place] Heart Rate 2013-11-24 13:20:53 [facility] [place] Systolic (mm Hg) 2013-11-24 13:20:53 Derek rial Benjamin Diastolic (mm Hg) 2013-11-24 13:20:53 Mem orial [place] Weight 2013-10-30 13:43:21 [facility] Temperature Oral (F) 2013-10-30 13:43:21 98.6 F [facility] [place] Systolic (mm Hg) 2013-10-30 13:43:21 Derek rial [place] Diastolic (mm Hg) 2013-10-30 13:43:21 Mem orial [place] Heart Rate 2013-10-30 13:43:21 [facility] [place] Weight 2013-09-15 21:03:31 [facility] Temperature Oral (F) 2013-09-15 21:03:31 98.3 F [facility] [place] Systolic (mm Hg) 2013-09-15 21:03:31 Derek rial [place] Diastolic (mm Hg) 2013-09-15 21:03:31 Mem orial [place] Heart Rate 2013-09-15 21:03:31 [facility] [place] Weight 2013-07-24 15:46:32 [facility] [place] Temperature Oral (F) 2013-07-24 15:46:32 98.5 F [facility] Heart Rate 2013-07-24 15:46:32 [facility] Systolic (mm Hg) 2013-07-24 15:46:32 Derek rial [place] Diastolic (mm Hg) 2013-07-24 15:46:32 Mem orial [place] Height 2013-06-12 18:29:01 [facility] [place] Weight 2013-06-12 18:29:01 [facility] [place] Respitory Rate 2013-06-12 18:29:01 Samanthamarta al Benjamin Heart Rate 2013-06-12 18:29:01 Mina Jaimesann Systolic (mm Hg) 2013-06-12 18:29:01 Derek Jaimesann Diastolic (mm Hg) 2013-06-12 18:29:01 Mem orial [place] Temperature Oral (F) 2013-06-12 18:29:01 98.9 F Mina Alexander Procedures Procedure Date / Time Performed Performing Clinician [facility] e vaginal Pap smear results 2011-03-20 16:56:54 Ct morial Benjamin Arthroscopy<sup>1</sup> Mina Alexander Bilateral tubal ligation Marika Alexander section Mina Lo n Encounters Start End Encounter Admission Attending Care Care Encounter Source Date/Time Date/Time Type Type Clinicians Facility Department ID 2020-09-07 2020-09-07 Nurse Nurse, Terry [facility] [id number] 08:52:54 09:29:50 [facility] [place] [id number] Professio [phone] [address] 2020-08-05 2020-08-05 [id number] 2020-07-07 2020-07-07 [facility] [id number] 2020-06-21 2020-06-21 [facility] [id number] [facility] 2020-06-15 2020-06-15 Nurse Nurse, Terry [place] [id number] 09:01:38 09:16:35 Visit [facility] [place] [id number] [place] [id number] Professio [id number] [address] 2020-03-09 2020-03-09 [facility] [id number] [facility] 2020-02-10 2020-02-10 [facility] [id number] [facility] 2020-01-29 2020-01-29 [facility] [id number] [facility] 2020-01-19 2020-01-19 [facility] [id number] [facility] 2020-01-08 2020-01-08 [facility] [id number] [facility] 2019-12-25 2019-12-25 [facility] [id number] [facility] 2019-11-27 2019-11-27 [facility] [id number] [facility] 08[facility]00 08:00:00 [facility] 2019-11-27 2019-11-27 [facility] [id number] [facility] 2019-10-28 2019-10-28 [facility] [id number] 09:30:00 09:30:00 t [employer] [facility] 2019-10-16 2019-10-16 [facility] [id number] 09:00:00 09:00:00 t [facility] 2019-07-29 2019-07-29 [facility] [id number] 14:15:00 14:15:00 t [facility] 2019-07-17 2019-07-17 [facility] [id number] 15:00:00 15:00:00 t [facility] 2019-05-29 2019-05-29 [facility] [id number] 14:30:00 14:30:00 [place] [employer] [facility] s - [facility] 2019-05-26 2019-05-26 [facility] [id number] 08:00:00 08:00:00 t [facility] 2019-04-30 2019-04-30 [facility] [id number] 16:54:00 16:54:00 [place] [employer] Luke s - [facility] 2019-04-30 2019-04-30 [facility] [id number] 15:00:00 15:00:[address] [place] - Drive [facility] Outpati ent Clinics 2019-01-20 2019-01-20 [facility] [id number] 14:15:00 14:15:00 [place] [employer] Luke s - Drive [facility] 2018-12-19 2018-12-19 [facility] [id number] 10:00:00 10:00:00 [place] [employer] Luke s - [address] [facility] Outpat[facility] ent Clinics 2018-11-20 2018-11-20 [facility] [id number] 08:00:00 08:00:00 [place] [employer] Luke s - [facility] 2018-07-10 2018-07-11 Outpatient MHMISCHER MHMISCHER [id number] 10:05:00 23:59:59 02 2018-07-10 2018-07-11 Outpatient MHMISCHER MHMISCHER [id number] 10:05:00 23:59:59 02 2018-06-20 2018-06-20 [facility] [id number] 13:00:00 13:00:00 t [facility] Outpati ent Clinics 2018-05-08 2018-05-08 [facility] [id number] 14:00:00 14:00:00 t [facility] Outpati ent Clinics 2018-04-17 2018-04-17 [facility] [id number] 10:15:00 10:15:00 [facility] Outpati ent Clinics 2015-06-07 2015-06-07 Outpatient MARIA ESTHER Gomez OIP [id number] 07:23:00 23:59:00 Nomi 01 Results Test Description Test Time Test Comments Results Result Comments Source [facility] 2011-03-20 Normal [facility] Gregoria nn 16:56:54 Pathology 2011-03-20 Normal [facility] Gregoria nn 16:56:54
[2020-10-16] MEDS ORDERED: NA CHLORIDE 0.9% 3,000 ML ONE (06:13)
[2020-10-16 06:22] LABS: Protime INR 1.16
[2020-10-16 06:27] LABS: Absolute Lymphocytes (CBC) 1.1 K/uL (0.7-4.9); Basophils % 0.5 % (0-1.3); Hematocrit 44.6 % (36.0-45.0); Lymphocytes % 26.9 % (15.3-44.8); MPV 8.3 fL (7.6-11.3); RBC Red Blood Cell Count 5.13 M/uL (3.86-4.86)
[2020-10-16] MEDS ORDERED: ACETAMINOPHEN 500 MG TAB ONE (06:28)
[2020-10-16 06:45] LABS: Arterial Blood Carboxyhemoglob 1.1 % (0-1.5); Blood Gas Oxyhemoglobin 93.1 % (94-97); Blood O2 Saturation 94.9 % (92-98.5)
[2020-10-16 06:48] LABS: ALT/SGPT 58 U/L (12-78); AST/SGOT 65 U/L (15-37); Albumin 3.3 g/dL (3.4-5.0); Alkaline Phosphatase 83 U/L (45-117); BUN Blood Urea Nitrogen 9 mg/dL (7-18); Bicarbonate 27 mmol/L (21-32); Bilirubin Direct 0.2 mg/dL (0-0.2); Bilirubin Total 0.4 mg/dL (0.2-1.0); Glucose Level 112 mg/dL (74-106); Lipase 106 U/L (73-393); Magnesium 2.2 mg/dL (1.8-2.4); NT PRO-BNP 26 pg/mL (<125); Potassium 3.9 mmol/L (3.5-5.1); Protein, Total 7.7 g/dL (6.4-8.2); Sodium Level 134 mmol/L (136-145); Troponin (Emerg Dept Use Only) < 0.02 ng/mL (0.0-0.045)
--- NOTE | 2020-10-16 07:44 | RAD REPORT ---
EXAM DESCRIPTION: RAD - Chest Single View - 10/16/2020 7:08 am CLINICAL HISTORY: Cough;Dyspnea;Fever COMPARISON: Chest Pa And Lat (2 Views) dated 12/11/2019; Chest Pa And Lat (2 Views) dated 04/10/2017 FINDINGS: Increasing bilateral ill-defined airspace opacities. The heart size is within normal limit s.No acute osseous abnormality. No significant pleural effusions or pneumothorax. IMPRESSION: Increasing bilateral airspace disease concerning for multifocal pneumonia, including Cov id 19.
[2020-10-16] MEDS ORDERED: METHYLPREDNISOLONE 125 MG INJ ONE (07:53)
--- NOTE | 2020-10-16 07:55 | RAD REPORT ---
EXAM DESCRIPTION: CT - Chest For Pe Angio - 10/16/2020 7:42 am CLINICAL HISTORY: DYSPNEA COMPARISON: No comparisons FINDINGS: Chest Wall: No suspicious thyroid nodules or pathologic lymphadenopathy. Lungs: Moderate bilateral irregular airspace disease. Pleura: No significant effusions or pneumothorax. Mediastinum/alex: No pathologic lymphadenopathy. Small hiatal hernia. Pulmonary arteries/Aorta: No pulmonary embolism identified to the level of the segmental pulmonary ar teries. Subsegmental pulmonary arteries cannot be evaluated due to motion artifact. No aortic aneurys m. Heart: No significant pericardial effusion. Normal heart size. Upper abdomen: No acute abnormality. Hepatic steatosis. Bones: No acute abnormality. IMPRESSION: No pulmonary embolus of the level of the segmental pulmonary arteries. Moderate widespre ad bilateral airspace disease concerning for multifocal pneumonia, including Covid-19.
--- NOTE | 2020-10-16 08:06 | EDPHYS ---
Physician Documentation [facility] Name: Leanne Berman Age: 45 yrs Sex: Female : 1975 Arrival Date: 10/16/2020 Time: 05:22 Bed 13 Private MD: ED Physician Adama Schwartz HPI: 10/16 05:51 This 45 yrs old Female presents to ER via Ambulatory with complaints of pkl Breathing Difficulty. 05:51 The patient has shortness of breath at rest. Onset: The symptoms/episode began/occurred pkl 4 day(s) ago. Associated signs and symptoms: Pertinent positives: non-productive cough, fever, headache. Patient's family has tested positive for Covid 19 recently. Patient not vaccinated. 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 - Social history:: Smoking status: Patient denies any tobacco usage or history of. ROS: 05:51 Eyes: Negative for injury, pain, redness, and discharge, ENT: Negative for injury, pkl pain, and discharge, Neck: Negative for injury, pain, and swelling, Cardiovascular: Negative for chest pain, palpitations, and edema. 05:51 Respiratory: Positive for cough, with no reported sputum, shortness of breath, at rest. 05:51 Abdomen/GI: Negative for abdominal pain, nausea, vomiting, and diarrhea. 05:51 Back: Negative for acute changes. 05:51 : Negative for urinary symptoms. 05:51 MS/extremity: Negative for acute changes. 05:51 Skin: Negative for rash. 05:51 Neuro: Negative for altered mental status, loss of consciousness. Exam: 05:51 Head/Face: Normocephalic, atraumatic. Eyes: Pupils equal round and reactive to light, pkl extra-ocular motions intact. Lids and lashes normal. Conjunctiva and sclera are non-icteric and not injected. Cornea within normal limits. Periorbital areas with no swelling, redness, or edema. ENT: Nares patent. No nasal discharge, no septal abnormalities noted. Tympanic membranes are normal and external auditory canals are clear. Oropharynx with no redness, swelling, or masses, exudates, or evidence of obstruction, uvula midline. Mucous membranes moist. Neck: Trachea midline, no thyromegaly or masses palpated, and no cervical lymphadenopathy. Supple, full range of motion without nuchal rigidity, or vertebral point tenderness. No Meningismus. Chest/axilla: Normal chest wall appearance and motion. Nontender with no deformity. No lesions are appreciated. Cardiovascular: Regular rate and rhythm with a normal S1 and S2. No gallops, murmurs, or rubs. Normal PMI, no JVD. No pulse deficits. 05:51 Respiratory: moderate respiratory distress is noted, Respirations: labored breathing, that is moderate, Breath sounds: rales, that are moderate, are scattered. 05:51 Abdomen/GI: Bowel sounds: normal, Palpation: abdomen is soft and non-tender, in all quadrants. 05:51 Back: Exam negative for acute changes. 05:51 : Exam negative for acute changes. 05:51 Musculoskeletal/extremity: Exam is negative for acute changes. 05:51 Skin: Exam negative for rash. 05:51 Neuro: Orientation: is normal, Mentation: is normal, Cranial nerves: grossly normal, Motor: is normal. Vital Signs: 05:36 BP 107 / 61; Pulse 117; Resp 24 S; Temp 100.3(O); Pulse Ox 85% on R/A; Weight 117.93 kg bb (R); Height 5 ft. 6 in. (167.64 cm) (R); Pain 9/10; 06:28 BP 104 / 63; Pulse 112; Resp 18; Pulse Ox 96% on 3 lpm NC; ak2 08:35 BP 105 / 72; Pulse 96; Resp 28; Temp 99.3(TE); Pulse Ox 93% on 3 lpm NC; jd3 09:46 Pulse 93; Resp 24 S; Pulse Ox 93% on 3 lpm NC; jd3 05:36 Body Mass Index 41.96 (117.93 kg, 167.64 cm) bb MDM: 05:32 Patient medically screened. pkl 08:04 Differential diagnosis: Bronchitis Myocardial Infarction pneumonia, Pneumothorax rn pulmonary edema, Pulmonary Embolism. Data reviewed: vital signs, nurses notes, lab test result(s), EKG, radiologic studies, CT scan, plain films, and as a result, I will admit patient. Counseling: I had a detailed discussion with the patient and/or guardian regarding: the historical points, exam findings, and any diagnostic results supporting the discharge/admit diagnosis, lab results, radiology results, the need for further work-up and treatment in the hospital. Response to treatment: the patient's symptoms have mildly improved after treatment, and as a result, I will admit patient. Admission orders: after a detailed discussion of the patient's condition and case, the admit orders are written by me. 08:06 Data interpreted: hall monitor: rate is 100 beats/min, rhythm is normal sinus rn rhythm, regular, with no ectopy, Interpretation: normal rate, normal rhythm, Pulse oximetry: on 3L(s) per nasal canula, is 96 %. Interpretation: acceptable. 10/16 05:48 Order name: Basic Metabolic Panel pkl 10/16 05:48 Order name: CBC with Diff pkl 10/16 05:48 Order name: LFT's pkl 10/16 05:48 Order name: Magnesium pkl 10/16 05:48 Order name: NT PRO-BNP pkl 10/16 05:48 Order name: PT-INR; Complete Time: 06:33 pkl 10/16 05:48 Order name: Troponin (emerg Dept Use Only); Complete Time: 06:52 pkl 10/16 05:48 Order name: Blood Culture Adult (2) pkl 10/16 05:48 Order name: Lactate; Complete Time: 06:33 pkl 10/16 05:48 Order name: CRP; Complete Time: 06:52 pkl 10/16 05:48 Order name: Lipase; Complete Time: 06:52 pkl 10/16 05:48 Order name: ABG; Complete Time: 06:48 pkl 10/16 05:49 Order name: Basic Metabolic Panel; Complete Time: 06:52 EDMS 10/16 05:49 Order name: CBC with Automated Diff; Complete Time: 06:33 EDMS 10/16 05:49 Order name: Liver (Hepatic) Function; Complete Time: 06:52 EDMS 10/16 05:49 Order name: Magnesium; Complete Time: 06:52 EDMS 10/16 05:49 Order name: NT PRO-BNP; Complete Time: 06:52 EDMS 10/16 05:49 Order name: Flu; Complete Time: 07:45 pkl 10/16 05:49 Order name: Strep; Complete Time: 07:45 pkl 10/16 05:59 Order name: D-Dimer; Complete Time: 06:41 pkl 10/16 06:04 Order name: Procalcitonin; Complete Time: 07:37 pkl 10/16 07:05 Order name: SARS-COV-2 RT PCR; Complete Time: 07:37 EDMS 10/16 07:44 Order name: Throat Culture EDMS 10/16 09:32 Order name: Comprehensive Metabolic Panel EDMS 10/16 09:32 Order name: Comprehensive Metabolic Panel EDMS 10/16 09:32 Order name: C-Reactive Protein EDMS 10/16 09:32 Order name: C-Reactive Protein EDMS 10/16 09:32 Order name: Ferritin EDMS 10/16 09:32 Order name: Ferritin EDMS 10/16 05:48 Order name: XRAY Chest (1 view); Complete Time: 07:45 pkl 10/16 05:48 Order name: EKG; Complete Time: 05:49 pkl 10/16 05:48 Order name: Cardiac monitoring; Complete Time: 06:35 pkl 10/16 05:48 Order name: EKG - Nurse/Tech; Complete Time: 06:35 pkl 10/16 05:48 Order name: IV Saline Lock; Complete Time: 06:35 pkl 10/16 05:48 Order name: Labs collected and sent; Complete Time: 06:35 pkl 10/16 05:48 Order name: O2 Per Protocol; Complete Time: 06:35 pkl 10/16 05:48 Order name: O2 Sat Monitoring; Complete Time: 06:35 pkl 10/16 06:54 Order name: CT Chest For PE Angio; Complete Time: 08:01 pkl 10/16 09:32 Order name: Protime (+INR) EDMS 10/16 09:32 Order name: Protime (+INR) EDMS 10/16 09:32 Order name: PTT, Activated Partial Thromb EDMS 10/16 09:32 Order name: PTT, Activated Partial Thromb EDMS 10/16 09:33 Order name: CONS Physician Consult EDMS 10/16 09:33 Order name: Heart Healthy EDMS 10/16 09:33 Order name: CBC with Automated Diff EDMS 10/16 09:33 Order name: CBC with Automated Diff EDMS Administered Medications: 05:52 Drug: NS 0.9% (30 ml/kg) 30 ml/kg Route: IV; Rate: bolus; Site: left antecubital; ak2 09:50 Follow up: Response: No adverse reaction; IV Status: Completed infusion jd3 06:08 Drug: Tylenol 1000 mg Route: PO; ak2 07:00 Follow up: Response: No adverse reaction jd3 08:34 Drug: SOLU-Medrol (methylPrednisoLONE) 125 mg Route: IVP; Site: right antecubital; jd3 09:30 Follow up: Response: No adverse reaction jd3 Disposition Summary: 10/16/20 08:05 Hospitalization Ordered Hospitalization Status: Inpatient Admission rn Provider: Anthony Pleitez rn Condition: Stable rn Problem: new rn Symptoms: have improved rn Bed/Room Type: Standard rn Location: [facility] ER HOLD(10/16/20 09:07) Room Assignment: ERHOLD-(10/16/20 09:07) sv Diagnosis - Pneumonia due to SARS-associated coronavirus rn - Hypoxemia rn - Dyspnea, unspecified rn Forms: - Medication Reconciliation Form rn - SBAR form rn Signatures: Dispatcher [employer] EDMargi Webb RN Jaron Joyner MD MD pkl Ballard, Brenda RN RN Adama Elmore MD MD rn Davies, Jonathon, RN RN Tommie Rubio ak2 Corrections: (The following items were deleted from the chart) 06:14 05:49 CORONAVIRUS+MRHilarioLAB.RALPH ordered. EDMS EDMS 09:07 08:05 Telemetry/MedSurg (Inpatient) rn sv 09:07 08:05 rn sv
--- NOTE | 2020-10-16 08:06 | ER ---
Nurse's Notes [facility] Name: Leanne Berman Age: 45 yrs Sex: Female : 1975 Arrival Date: 10/16/2020 Time: 05:22 Bed 13 Private MD: Diagnosis: Pneumonia due to SARS-associated coronavirus;Hypoxemia;Dyspnea, unspecified Presentation: 10/16 05:36 Chief complaint: Patient states: her family has all tested positive for Covid and she bb has been having difficulty breathing for several days and has a headache. Coronavirus screen: difficulty breathing, headache, Client presents with at least one sign or symptom that may indicate coronavirus-19. Standard/surgical mask placed on the client. Ebola Screen: No symptoms or risks identified at this time. Initial Sepsis Screen: Does the patient meet any 2 criteria? RR > 20 per min. HR > 90 bpm. Yes Does the patient have a suspected source of infection? Yes: Other: Covid. Risk Assessment: Do you want to hurt yourself or someone else? Patient reports no desire to harm self or others. Onset of symptoms was October 12, 2020. 05:36 Method Of Arrival: Ambulatory bb 05:36 Acuity: NIYAH 3 bb Triage Assessment: 06:27 General: Appears in no apparent distress. Behavior is calm, cooperative. Respiratory: ak2 Reports shortness of breath at rest on exertion Onset: The symptoms/episode began/occurred gradually, the patient has mild shortness of breath. 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 - Social history:: Smoking status: Patient denies any tobacco usage or history of. Screenin:26 Abuse screen: Denies threats or abuse. Denies injuries from another. Nutritional ak2 screening: No deficits noted. Tuberculosis screening: No symptoms or risk factors identified. Fall Risk None identified. Assessment: 06:26 Pain: Denies pain. Cardiovascular: Rhythm is sinus tachycardia. Respiratory: Airway is ak2 patent Respiratory effort is even, unlabored, Breath sounds are diminished bilaterally. 08:37 General: Appears uncomfortable, Behavior is calm, cooperative, appropriate for age. jd3 Pain: Denies pain. Neuro: Level of Consciousness is awake, alert, obeys commands, Oriented to person, place, time, situation. Cardiovascular: Heart tones present Capillary refill < 3 seconds Patient's skin is warm and dry. Rhythm is regular. Respiratory: Airway is patent Respiratory effort is even, labored, Respiratory pattern is symmetrical, tachypnea Breath sounds are diminished bilaterally. GI: No signs and/or symptoms were reported involving the gastrointestinal system. : No signs and/or symptoms were reported regarding the genitourinary system. EENT: Derm: Skin is intact, Skin is dry, Skin is normal, Skin temperature is warm. Musculoskeletal: Circulation, motion, and sensation intact. Range of motion: intact in all extremities. 09:45 Reassessment: Patient appears in no apparent distress at this time. No changes from jd3 previously documented assessment. Patient and/or family updated on plan of care and expected duration. Pain level reassessed. pt admitted to ER hold status, documentation continued in [facility]. Vital Signs: 05:36 BP 107 / 61; Pulse 117; Resp 24 S; Temp 100.3(O); Pulse Ox 85% on R/A; Weight 117.93 kg bb (R); Height 5 ft. 6 in. (167.64 cm) (R); Pain 9/10; 06:28 BP 104 / 63; Pulse 112; Resp 18; Pulse Ox 96% on 3 lpm NC; ak2 08:35 BP 105 / 72; Pulse 96; Resp 28; Temp 99.3(TE); Pulse Ox 93% on 3 lpm NC; jd3 09:46 Pulse 93; Resp 24 S; Pulse Ox 93% on 3 lpm NC; jd3 05:36 Body Mass Index 41.96 (117.93 kg, 167.64 cm) bb ED Course: 05:22 Patient arrived in ED. wm 05:32 Jaron Rodriguez MD is Attending Physician. pkl 05:39 Triage completed. bb 05:40 Arm band placed on Patient placed in an exam room, on a stretcher, on oxygen, on pulse bb oximetry. 06:26 Patient has correct armband on for positive identification. ak2 06:26 No provider procedures requiring assistance completed. Inserted saline lock: 20 gauge ak2 in right antecubital area, using aseptic technique. 06:59 Attending Physician role handed off by Jaron Rodriguez MD rn 06:59 Adama Schwartz MD is Attending Physician. rn 07:07 XRAY Chest (1 view) In Process Unspecified. EDMS 07:42 CT Chest For PE Angio In Process Unspecified. EDMS 07:56 NT PRO-BNP Sent. sv 07:56 LFT's Sent. sv 07:56 Magnesium Sent. sv 07:56 CBC with Diff Sent. sv 07:56 Basic Metabolic Panel Sent. sv 08:05 Anthony Pleitez MD is Hospitalizing Provider. rn 08:34 Sarwat Pierson, MARII is Primary Nurse. jd3 09:49 Patient admitted, IV remains in place. jd3 Administered Medications: 05:52 Drug: NS 0.9% (30 ml/kg) 30 ml/kg Route: IV; Rate: bolus; Site: left antecubital; ak2 09:50 Follow up: Response: No adverse reaction; IV Status: Completed infusion jd3 06:08 Drug: Tylenol 1000 mg Route: PO; ak2 07:00 Follow up: Response: No adverse reaction jd3 08:34 Drug: SOLU-Medrol (methylPrednisoLONE) 125 mg Route: IVP; Site: right antecubital; jd3 09:30 Follow up: Response: No adverse reaction jd3 Outcome: 08:05 Decision to Hospitalize by Provider. rn 09:46 Admitted to ER Hold. Please see [facility] for further documentation. jd3 09:46 Condition: stable 09:46 Instructed on the need for admit, Demonstrated understanding of instructions. 21:57 Patient left the ED. mw Signatures: Dispatcher [employer] Margi Mcnulty RN RN sv Webb, Martha, RN RN mw Lam, Pin, MD MD pkl Ballard, Brenda, RN RN bb Nieto, Roman, MD MD rn Davies, Jonathon, RN RN jd3 [place], Anthony [facility] Jessica Pedro
[2020-10-16] MEDS ORDERED: MORPHINE 2 MG/ML SYR IV PRN (09:17)
[2020-10-16] MEDS ORDERED: ONDANSETRON 4 MG/2 ML VIAL IV PRN (09:17)
[2020-10-16] MEDS ORDERED: IPRATROPIUM BROM 0.5MG/2.5ML NEB PRN (09:17)
[2020-10-16] MEDS ORDERED: ALBUTEROL 2.5 MG/3 ML NEB SOL NEB PRN (09:17)
--- NOTE | 2020-10-16 11:48 | P.CNS ---
Date of Consult: 10/16/20 (Pt consented to TV) Reason for Consult: COVID purenata Chief Complaint: SOB History of Present Illness: AGe 43 AW COVID penumonia/ No sig PMH/ SOB Allergies No Known Allergies Allergy (Verified 01/15/20 10:02) Home Medications: Amitriptyline HCl 20 mg PO DAILY 12/11/19 - Past Medical/Surgical History Diabetic: No -: migraines -: carpal tunnel -: knee - Family History Mother Medical History: Diabetes - Social History Alcohol use: No CD- Drugs: No Caffeine use: No Place of Residence: Home Review of Systems General: Weakness Respiratory: Cough, Shortness of Breath Physical Examination General: Alert, Oriented x3, Mild distress Laboratory Data (last 24 hrs) 10/16/20 06:02: PT 13.4 H, INR 1.16 10/16/20 06:02: WBC 4.20 L, Hgb 15.2 H, Hct 44.6, Plt Count 245 10/16/20 06:02: Sodium 134 L, Potassium 3.9, BUN 9, Creatinine 0.96, Glucose 112 H, Magnesium 2.2, Total Bilirubin 0.4, AST 65 H, ALT 58, Alkaline Phosphatase 83, Lipase 106 - Problems (1) Pneumonia due to 2019 novel coronavirus Current Visit: Yes Status: Acute Plan: AW COVID oenumionai/Nosig PMH/ condition stable/ CT COVID penumonia/ possibel barcitinib if more hypoxic
[2020-10-16] MEDS ORDERED: ASPIRIN EC 81 MG TAB PO ONE ×2 (12:44→13:28)
[2020-10-16] MEDS: IVERMECTIN 3 MG TABLET PO SCH (13:00)
[2020-10-16] MEDS: ASPIRIN EC 81 MG TAB PO SCH (13:07)
[2020-10-16] MEDS: FAMOTIDINE 20 MG/2 ML VIAL IV SCH (20:09)
[2020-10-16] MEDS: APIXABAN 2.5 MG TABLET PO SCH (20:09)
[2020-10-16] MEDS: METHYLPREDNISOLONE 40 MG INJ IV SCH (20:10)
[2020-10-16] MEDS ORDERED: APIXABAN 5 MG TABLET ONE (20:18)
[2020-10-16] MEDS ORDERED: FAMOTIDINE 20 MG/2 ML VIAL IV ONE (20:18)
[2020-10-16] MEDS ORDERED: METHYLPREDNISOLONE 40 MG INJ ONE (20:18)
[2020-10-17 08:28] LABS: Absolute Lymphocytes (CBC) 0.7 K/uL (0.7-4.9); Basophils % 0.4 % (0-1.3); Hematocrit 45.4 % (36.0-45.0); Lymphocytes % 9.1 % (15.3-44.8); MPV 7.9 fL (7.6-11.3); RBC Red Blood Cell Count 5.18 M/uL (3.86-4.86)
[2020-10-17 08:40] LABS: Protime INR 1.12
[2020-10-17 09:05] LABS: ALT/SGPT 59 U/L (12-78); AST/SGOT 53 U/L (15-37); Alkaline Phosphatase 81 U/L (45-117); BUN Blood Urea Nitrogen 12 mg/dL (7-18); Bicarbonate 28 mmol/L (21-32); Bilirubin Total 0.4 mg/dL (0.2-1.0); Ferritin 496.9 ng/mL (8-388); Glucose Level 137 mg/dL (74-106); Protein, Total 7.5 g/dL (6.4-8.2); Sodium Level 140 mmol/L (136-145)
[2020-10-17] MEDS: METHYLPREDNISOLONE 40 MG INJ IV SCH (09:49)
[2020-10-17] MEDS: FAMOTIDINE 20 MG/2 ML VIAL IV SCH (09:50)
[2020-10-17] MEDS: APIXABAN 2.5 MG TABLET PO SCH ×2 (09:50→20:37)
[2020-10-17] MEDS: ASPIRIN EC 81 MG TAB PO SCH (09:50)
[2020-10-17 10:12] LABS: Blood Morphology Comment NOT SEEN (NOT SEEN); Platelet Estimate ADEQ
--- NOTE | 2020-10-17 15:04 | P.PN ---
Subjective Date of Service: 10/17/20 Chief Complaint: SOB Subjective: Worsening (Still very hypoxic) Review of Systems Respiratory: Shortness of Breath Physical Examination - Vital Signs Temperature: 96.7 F Blood Pressure: 109/62 Pulse: 99 Respirations: 26 Pulse Ox (%): 90 - Physical Exam General: Alert, Oriented x3, Mild distress Assessment & Plan - Problems (Diagnosis) (1) Pneumonia due to 2019 novel coronavirus Current Visit: Yes Status: Acute Plan: Worse Add Barcinitib Worse / CW steroids and Ivermectin/ LAbs rev/ inc solumederol. change to po Pepcid
[2020-10-17] MEDS: BARICITINIB 2 MG TABLET PO SCH (16:41)
--- NOTE | 2020-10-17 16:41 | P.HP ---
Certification for Inpatient Patient admitted to: Inpatient With expected LOS: >2 Midnights Patient will require the following post-hospital care: None Practitioner: I am a practitioner with admitting privileges, knowledge of patient current condition, hospital course, and medical plan of care. Services: Services provided to patient in accordance with Admission requirements found in Title 42 Section 412.3 of the Code of Federal Regulations Patient History Date of Service: 10/16/20 Reason for admission: SOB History of Present Illness: Patient is a 45-year-old female who came to the hospital with difficulty breathing. She has been coughing and congested and she has been sick for the last 4 days. She says everyone in her family has been sick as well. She has not been feeling any better and she started becoming tachypneic so she came into the emergency room for further evaluation. In the emergency room, patient's chest x-ray revealed diffuse infiltrates. Patient's CT scan did not reveal any pulmonary embolism. At this time, patient was admitted to the hospital for further evaluation. Continue monitoring inflammatory markers as well. Allergies No Known Allergies Allergy (Verified 01/15/20 10:02) Home Medications: Amitriptyline HCl 20 mg PO DAILY 12/11/19 - Past Medical/Surgical History Has patient received pneumonia vaccine in the past: No Diabetic: No -: migraines -: carpal tunnel -: knee - Family History Mother Medical History: Diabetes - Social History Smoking Status: Former smoker Alcohol use: No CD- Drugs: No Caffeine use: No Place of Residence: Home Review of Systems 10-point ROS is otherwise unremarkable Physical Examination - Vital Signs Temperature: 96.7 F Blood Pressure: 109/62 Pulse: 99 Respirations: 26 Pulse Ox (%): 90 - Physical Exam General: Alert, In no apparent distress, Oriented x3 HEENT: Atraumatic, PERRLA, Mucous membr. moist/pink, EOMI, Sclerae nonicteric Neck: Supple, 2+ carotid pulse no bruit, No LAD, Without JVD or thyroid abnormality Respiratory: Diminished Cardiovascular: Regular rate/rhythm, Normal S1 S2, No murmurs Gastrointestinal: Normal bowel sounds, Soft and benign, Non-distended, No tenderness Musculoskeletal: No clubbing, No swelling, No tenderness Integumentary: No rashes Neurological: Normal gait, Normal speech, Normal strength at 5/5 x4 extr, Normal tone, Sensation intact, Cranial nerves 3-12 intact, Normal affect Lymphatics: No axilla or inguinal lymphadenopathy Assessment & Plan - Problems (Diagnosis) (1) Pneumonia due to 2019 novel coronavirus Current Visit: Yes Status: Acute - Plan 1. Continue with IV steroids 2. Monitor inflammatory markers 3. Repeat chest x-ray if patient's symptoms are progressively worsening 4. O2 per protocol 5. Pulmonary consultation 6. Continue with albuterol inhaler therapy; also supportive care 7. GI and DVT prophylaxis Discharge Plan: Home Plan to discharge in: Greater than 2 days - Advance Directives Does patient have a Living Will: No Does patient have a Durable POA for Healthcare: No - Code Status/Comfort Care Code Status Assessed: Yes Code Status: Full Code Critical Care: No Time Spent Managing PTS Care (In Minutes): 45
--- NOTE | 2020-10-17 16:42 | P.PN ---
Subjective Date of Service: 10/17/20 Patient is stating that she feels better. However, she still is very tachypneic. She remains on high-flow at 20 L a min at 100% FiO2. Her sats are in the low 90s and high 80s. Review of Systems 10-point ROS is otherwise unremarkable Physical Examination - Vital Signs Temperature: 96.7 F Blood Pressure: 109/62 Pulse: 99 Respirations: 26 Pulse Ox (%): 90 - Physical Exam General: Alert, In no apparent distress, Oriented x3 Respiratory: Diminished Cardiovascular: Regular rate/rhythm, Normal S1 S2, No murmurs Gastrointestinal: Normal bowel sounds, Soft and benign, Non-distended, No tenderness Musculoskeletal: No clubbing, No swelling, No tenderness Neurological: Normal speech, Normal tone Lymphatics: No axilla or inguinal lymphadenopathy - Studies Medications List Reviewed: Yes Assessment & Plan - Problems (Diagnosis) (1) Pneumonia due to 2019 novel coronavirus Current Visit: Yes Status: Acute - Plan Continue with plan of care as mentioned below: 1. Continue with IV steroids 2. Monitor inflammatory markers 3. Repeat chest x-ray if patient's symptoms are progressively worsening 4. O2 per protocol 5. Pulmonary consultation appreciated 6. Continue with albuterol inhaler therapy; also supportive care 7. GI and DVT prophylaxis Discharge Plan: Home Plan to discharge in: Greater than 2 days - Advance Directives Does patient have a Living Will: No Does patient have a Durable POA for Healthcare: No - Code Status/Comfort Care Code Status: Full Code Critical Care: No Time Spent Managing PTS Care (In Minutes): 35
[2020-10-17] MEDS: FAMOTIDINE 20 MG TAB PO SCH (20:37)
[2020-10-17] MEDS: METHYLPREDNISOLONE 125 MG INJ IV SCH (20:38)
[2020-10-17] MEDS: ACETAMINOPHEN 500 MG TAB PO PRN (20:38)
--- NOTE | 2020-10-18 08:17 | RAD REPORT ---
EXAM DESCRIPTION: RAD - Chest Single View - 10/18/2020 6:21 am CLINICAL HISTORY: pneumonia COMPARISON: October 16 TECHNIQUE: AP portable chest image was obtained 10/18/2020 6:21 am . FINDINGS: Lung volumes are low with further limitation caused by very large body habitus and portabl e technique. Interstitial and alveolar opacification present probably not substantially different. Le ft breast soft tissues increased the left base density. Overall lung parenchymal findings are probabl y not substantially different from October 16. Heart size is prominent, partially obscured by the left base limitations. Vasculature is mildly prom inent. No measurable pleural effusion and no pneumothorax. No acute bony abnormality seen. No acute a ortic findings suspected. IMPRESSION: Significantly limited portable study showing bilateral lung parenchymal opacification no t substantially different from prior imaging. Findings are certainly consistent with the history of pneumonia. Given limitations, a component of mi ld failure or volume overload cannot be excluded.
[2020-10-18] MEDS: ZINC SULFATE 220 MG CAP PO SCH (08:45)
[2020-10-18] MEDS: VITAMIN D 1000 UNIT TAB PO SCH (08:46)
[2020-10-18] MEDS: APIXABAN 2.5 MG TABLET PO SCH ×2 (08:46→21:03)
[2020-10-18] MEDS: METHYLPREDNISOLONE 125 MG INJ IV SCH ×3 (08:47→21:04)
[2020-10-18] MEDS: ASCORBIC ACID 500 MG TABLET PO SCH ×4 (08:47→21:04)
[2020-10-18] MEDS: THIAMINE HCL 100 MG TABLET PO SCH ×2 (08:47→21:04)
[2020-10-18] MEDS: ASPIRIN EC 81 MG TAB PO SCH (08:47)
[2020-10-18] MEDS: FAMOTIDINE 20 MG TAB PO SCH ×2 (08:48→21:04)
[2020-10-18] MEDS: BARICITINIB 2 MG TABLET PO SCH (08:49)
[2020-10-18 09:02] LABS: Absolute Lymphocytes (CBC) 1.3 K/uL (0.7-4.9); Basophils % 0.2 % (0-1.3); Hematocrit 45.3 % (36.0-45.0); Lymphocytes % 8.5 % (15.3-44.8); MPV 7.9 fL (7.6-11.3); RBC Red Blood Cell Count 5.19 M/uL (3.86-4.86)
[2020-10-18 09:38] LABS: Albumin 3.1 g/dL (3.4-5.0); Bilirubin Total 0.7 mg/dL (0.2-1.0); Ferritin 724.8 ng/mL (8-388); Magnesium 2.5 mg/dL (1.8-2.4); Protein, Total 7.3 g/dL (6.4-8.2)
[2020-10-18] MEDS: IVERMECTIN 3 MG TABLET PO SCH (14:06)
--- NOTE | 2020-10-18 16:54 | P.PN ---
Subjective Date of Service: 10/18/20 Chief Complaint: SOB Subjective: Improving Physical Examination - Vital Signs Temperature: 97.0 F Blood Pressure: 131/81 Pulse: 90 Respirations: 18 Pulse Ox (%): 91 - Studies Microbiology Data (last 24 hrs): 10/16/20 06:02 Throat Culture & Sensitivity - Final NORMAL UPPER RESPIRATORY ELINOR GROWN. 10/16/20 06:02 Blood - Blood Blood Culture Gram Stain - Final Medications List Reviewed: Yes Assessment & Plan Discharge Plan: Home Plan to discharge in: Greater than 2 days Physician Review Additional Text: COVID: Positive CT Chest: COMPARISON: No comparisons FINDINGS: Chest Wall: No suspicious thyroid nodules or pathologic lymphadenopathy. Lungs: Moderate bilateral irregular airspace disease. Pleura: No significant effusions or pneumothorax. Mediastinum/alex: No pathologic lymphadenopathy. Small hiatal hernia. Pulmonary arteries/Aorta: No pulmonary embolism identified to the level of the segmental pulmonary arteries. Subsegmental pulmonary arteries cannot be evaluated due to motion artifact. No aortic aneurysm. Heart: No significant pericardial effusion. Normal heart size. Upper abdomen: No acute abnormality. Hepatic steatosis. Bones: No acute abnormality. IMPRESSION: No pulmonary embolus of the level of the segmental pulmonary arteries. Moderate widespread bilateral airspace disease concerning for multifocal pneumonia, including Covid-19. Follow up CXR: COMPARISON: October 16 TECHNIQUE: AP portable chest image was obtained 10/18/2020 6:21 am . FINDINGS: Lung volumes are low with further limitation caused by very large body habitus and portable technique. Interstitial and alveolar opacification present probably not substantially different. Left breast soft tissues increased the left base density. Overall lung parenchymal findings are probably not substantially different from October 16. Heart size is prominent, partially obscured by the left base limitations. Vasculature is mildly prominent. No measurable pleural effusion and no pneumothorax. No acute bony abnormality seen. No acute aortic findings suspected. IMPRESSION: Significantly limited portable study showing bilateral lung parenchymal opacification not substantially different from prior imaging. Findings are certainly consistent with the history of pneumonia. Given limitations, a component of mild failure or volume overload cannot be excluded. Physical Exam: General: Alert, In no apparent distress, Oriented x3 Respiratory: Diminished currently on high flow 100% Cardiovascular: Regular rate/rhythm, Normal S1 S2, No murmurs Gastrointestinal: Normal bowel sounds, Soft and benign, Non-distended, No tenderness Musculoskeletal: No clubbing, No swelling, No tenderness Neurological: Normal speech, Normal tone Lymphatics: No axilla or inguinal lymphadenopathy Impression: Acute respiratory failure with hypoxia secondary to bilateral Covid pneumonia, unvaccinated Plan: Continue with plan of care as mentioned below: 1. Continue with IV steroids, supplementation. Baricitinib added. 2. Monitor inflammatory markersferritin and CRP 3. Repeat chest x-ray tomorrow 4. O2 per protocol. Continue to wean off high flow 5. Pulmonary consulted. Await further recommendation. 6. Continue with albuterol inhaler therapy; also supportive care 7. GI and DVT prophylaxis DVT prophylaxis: Eliquis CODE STATUS: Full code Advance care [id number] minutes: Home at discharge Time Spent Managing Pts Care (In Minutes): 55
[2020-10-18] MEDS: AMITRIPTYLINE 10 MG TAB PO SCH (21:03)
[2020-10-18] MEDS: ACETAMINOPHEN 500 MG TAB PO PRN (21:05)
[2020-10-19 04:30] LABS: Absolute Lymphocytes (CBC) 0.6 K/uL (0.7-4.9); Basophils % 0.1 % (0-1.3); Hematocrit 44.2 % (36.0-45.0); Lymphocytes % 4.7 % (15.3-44.8); MPV 7.8 fL (7.6-11.3); RBC Red Blood Cell Count 5.04 M/uL (3.86-4.86)
[2020-10-19 04:53] LABS: Albumin 2.8 g/dL (3.4-5.0); Bilirubin Total 0.6 mg/dL (0.2-1.0); C-Reactive Protein 10.4 mg/L (<3.00); Ferritin 844.8 ng/mL (8-388); Magnesium 2.7 mg/dL (1.8-2.4); Potassium 4.3 mmol/L (3.5-5.1); Protein, Total 6.9 g/dL (6.4-8.2)
--- NOTE | 2020-10-19 06:18 | P.PN ---
Subjective Date of Service: 10/19/20 Chief Complaint: SOB Subjective: Other (Overall no significant change. Currently on high flow at 98%) Physical Examination - Vital Signs Temperature: 98 F Blood Pressure: 118/65 Pulse: 84 Respirations: 20 Pulse Ox (%): 98 - Studies Microbiology Data (last 24 hrs): 10/16/20 06:02 Throat Culture & Sensitivity - Final NORMAL UPPER RESPIRATORY ELINOR GROWN. 10/16/20 06:02 Blood - Blood Blood Culture Gram Stain - Final Medications List Reviewed: Yes Assessment & Plan Discharge Plan: Home Plan to discharge in: Greater than 2 days Physician Review Additional Text: COVID: Positive CT Chest: COMPARISON: No comparisons FINDINGS: Chest Wall: No suspicious thyroid nodules or pathologic lymphadenopathy. Lungs: Moderate bilateral irregular airspace disease. Pleura: No significant effusions or pneumothorax. Mediastinum/alex: No pathologic lymphadenopathy. Small hiatal hernia. Pulmonary arteries/Aorta: No pulmonary embolism identified to the level of the segmental pulmonary arteries. Subsegmental pulmonary arteries cannot be evaluated due to motion artifact. No aortic aneurysm. Heart: No significant pericardial effusion. Normal heart size. Upper abdomen: No acute abnormality. Hepatic steatosis. Bones: No acute abnormality. IMPRESSION: No pulmonary embolus of the level of the segmental pulmonary arteries. Moderate widespread bilateral airspace disease concerning for multifocal pneumonia, including Covid-19. Follow up CXR: COMPARISON: Chest Single View dated 10/18/2020; Chest Single View dated 10/16/2020; Chest Pa And Lat (2 Views) dated 12/11/2019; Chest Pa And Lat (2 Views) dated 04/10/2017; Chest For Pe Angio dated 10/16/2020 FINDINGS: Widespread bilateral airspace disease again identified. There is less confluence of the opacities in the left lung base compared with prior. This may be technique related, however. The patient has increased rotation. The heart size is similar.No acute osseous abnormality. No significant pleural effusions or pneumothorax. IMPRESSION: When accounting for some differences in technique, likely no significant interval change compared with 10/18/2020. Widespread bilateral airspace disease again noted. Physical Exam: General: Alert, In no apparent distress, Oriented x3 Respiratory: Still diminished. High flow at 98% Cardiovascular: Regular rate/rhythm, Normal S1 S2, No murmurs Gastrointestinal: Normal bowel sounds, Soft and benign, Non-distended, No tenderness Musculoskeletal: No clubbing, No swelling, No tenderness Neurological: Normal speech, Normal tone Lymphatics: No axilla or inguinal lymphadenopathy Impression: Acute respiratory failure with hypoxia secondary to bilateral Covid pneumonia, unvaccinated Plan: Continue with plan of care as mentioned below: 1. Continue with IV steroids, supplementation. Continue baricitinib per protocol. 2. CRP slight improvement. Continue to monitor inflammatory markersferritin and CRP 3. Continue to monitor chest x-ray 4. Respiratory to continue to wean off high flow 5. Continue with pulmonology recommendations 6. Continue with albuterol inhaler therapy; also supportive care 7. GI and DVT prophylaxis DVT prophylaxis: Eliquis CODE STATUS: Full code Advance care [id number] minutes: Home at discharge Time Spent Managing Pts Care (In Minutes): 55
--- NOTE | 2020-10-19 07:32 | RAD REPORT ---
EXAM DESCRIPTION: RAD - Chest Single View - 10/19/2020 7:20 am CLINICAL HISTORY: follow up COVID COMPARISON: Chest Single View dated 10/18/2020; Chest Single View dated 10/16/2020; Chest Pa And Lat (2 Views) dated 12/11/2019; Chest Pa And Lat (2 Views) dated 04/10/2017; Chest For Pe Angio dated 10/17/19 21 FINDINGS: Widespread bilateral airspace disease again identified. There is less confluence of the op acities in the left lung base compared with prior. This may be technique related, however. The patien t has increased rotation. The heart size is similar.No acute osseous abnormality. No significant pleu ral effusions or pneumothorax. IMPRESSION: When accounting for some differences in technique, likely no significant interval change compared with 10/18/2020. Widespread bilateral airspace disease again noted.
[2020-10-19] MEDS: METHYLPREDNISOLONE 125 MG INJ IV SCH ×3 (09:13→21:48)
[2020-10-19] MEDS: ASPIRIN EC 81 MG TAB PO SCH (09:13)
[2020-10-19] MEDS: APIXABAN 2.5 MG TABLET PO SCH ×2 (09:13→21:49)
[2020-10-19] MEDS: ASCORBIC ACID 500 MG TABLET PO SCH ×4 (09:13→21:49)
[2020-10-19] MEDS: THIAMINE HCL 100 MG TABLET PO SCH ×2 (09:13→21:49)
[2020-10-19] MEDS: ZINC SULFATE 220 MG CAP PO SCH (09:13)
[2020-10-19] MEDS: VITAMIN D 1000 UNIT TAB PO SCH (09:13)
[2020-10-19] MEDS: BARICITINIB 2 MG TABLET PO SCH (09:14)
[2020-10-19] MEDS: FAMOTIDINE 20 MG TAB PO SCH ×2 (09:14→21:48)
[2020-10-19] MEDS: ACETAMINOPHEN 500 MG TAB PO PRN (17:16)
[2020-10-19] MEDS: AMITRIPTYLINE 10 MG TAB PO SCH (21:48)
[2020-10-20] MEDS: ACETAMINOPHEN 500 MG TAB PO PRN ×3 (03:51→21:07)
[2020-10-20 03:52] LABS: Absolute Lymphocytes (CBC) 0.6 K/uL (0.7-4.9); Basophils % 0.1 % (0-1.3); Hematocrit 46.1 % (36.0-45.0); Lymphocytes % 4.3 % (15.3-44.8); MPV 7.6 fL (7.6-11.3); RBC Red Blood Cell Count 5.21 M/uL (3.86-4.86)
[2020-10-20 04:26] LABS: AST/SGOT 229 U/L (15-37); Albumin 2.9 g/dL (3.4-5.0); Alkaline Phosphatase 89 U/L (45-117); BUN Blood Urea Nitrogen 20 mg/dL (7-18); Bicarbonate 30 mmol/L (21-32); Bilirubin Total 0.6 mg/dL (0.2-1.0); Ferritin 1030.8 ng/mL (8-388); Glucose Level 121 mg/dL (74-106); Magnesium 2.7 mg/dL (1.8-2.4); Potassium 4.3 mmol/L (3.5-5.1); Protein, Total 7.2 g/dL (6.4-8.2); Sodium Level 141 mmol/L (136-145)
[2020-10-20 04:32] LABS: ALT/SGPT 466 U/L (12-78)
[2020-10-20] MEDS: THIAMINE HCL 100 MG TABLET PO SCH ×2 (08:38→21:07)
[2020-10-20] MEDS: FAMOTIDINE 20 MG TAB PO SCH ×2 (08:38→21:07)
[2020-10-20] MEDS: ASCORBIC ACID 500 MG TABLET PO SCH ×4 (08:39→21:07)
[2020-10-20] MEDS: ZINC SULFATE 220 MG CAP PO SCH (08:39)
[2020-10-20] MEDS: VITAMIN D 1000 UNIT TAB PO SCH (08:39)
[2020-10-20] MEDS: ASPIRIN EC 81 MG TAB PO SCH (08:39)
[2020-10-20] MEDS: APIXABAN 2.5 MG TABLET PO SCH ×2 (08:39→21:07)
[2020-10-20] MEDS: METHYLPREDNISOLONE 125 MG INJ IV SCH ×3 (08:39→21:06)
--- NOTE | 2020-10-20 09:48 | P.PN ---
Subjective Date of Service: 10/20/20 Chief Complaint: SOB Subjective: Other (Patient on high flow at 90%. This has improved) Physical Examination - Vital Signs Temperature: 97.3 F Blood Pressure: 141/87 Pulse: 93 Respirations: 23 Pulse Ox (%): 92 - Studies Microbiology Data (last 24 hrs): 10/16/20 06:02 Blood - Blood Blood Culture Gram Stain - Final Medications List Reviewed: Yes Assessment & Plan Discharge Plan: Home Plan to discharge in: Greater than 2 days Physician Review Additional Text: COVID: Positive CT Chest: COMPARISON: No comparisons FINDINGS: Chest Wall: No suspicious thyroid nodules or pathologic lymphadenopathy. Lungs: Moderate bilateral irregular airspace disease. Pleura: No significant effusions or pneumothorax. Mediastinum/alex: No pathologic lymphadenopathy. Small hiatal hernia. Pulmonary arteries/Aorta: No pulmonary embolism identified to the level of the segmental pulmonary arteries. Subsegmental pulmonary arteries cannot be evaluated due to motion artifact. No aortic aneurysm. Heart: No significant pericardial effusion. Normal heart size. Upper abdomen: No acute abnormality. Hepatic steatosis. Bones: No acute abnormality. IMPRESSION: No pulmonary embolus of the level of the segmental pulmonary arteries. Moderate widespread bilateral airspace disease concerning for mul tifocal pneumonia, including Covid-19. Follow up CXR: COMPARISON: Chest Single View dated 10/18/2020; Chest Single View dated 10/16/2020; Chest Pa And Lat (2 Views) dated 12/11/2019; Chest Pa And Lat (2 Views) dated 04/10/2017; Chest For Pe Angio dated 10/16/2020 FINDINGS: Widespread bilateral airspace disease again identified. There is less confluence of the opacities in the left lung base compared with prior. This may be technique related, however. The patient has increased rotation. The heart size is similar.No acute osseous abnormality. No significant pleural effusions or pneumothorax. IMPRESSION: When accounting for some differences in technique, likely no significant interval change compared with 10/18/2020. Widespread bilateral airspace disease again noted. Physical Exam: General: Alert, In no apparent distress, Oriented x3 Respiratory: Still diminished. Currently on high flow at 90%. This has improved Cardiovascular: Regular rate/rhythm, Normal S1 S2, No murmurs Gastrointestinal: Normal bowel sounds, Soft and benign, Non-distended, No tenderness Musculoskeletal: No clubbing, No swelling, No tenderness Neurological: Normal speech, Normal tone Lymphatics: No axilla or inguinal lymphadenopathy Impression: Acute respiratory failure with hypoxia secondary to bilateral Covid pneumonia, unvaccinated Elevated liver function Plan: Patient currently on high flow at 90%. This has improved. Continue with IV steroids and supplementation. Patient with elevated LFTs. Will discontinue baricitinib due to elevated liver function. Continue to monitor ferritin and CRP. Recheck chest x-ray tomorrow. Encourage ambulation, incentive spirometer and proning. We will continue to monitor liver function test. Continue with supportive measures. Respiratory to continue to wean off high flow. DVT prophylaxis in placeEliquis. Will discuss with pulmonology. DVT prophylaxis: Eliquis CODE STATUS: Full code Advance care [id number] minutes: Home at discharge Time Spent Managing Pts Care (In Minutes): 55
[2020-10-20] MEDS: LORazepam 2 MG/ML VIAL IV PRN (16:42)
--- NOTE | 2020-10-20 17:00 | RAD REPORT ---
EXAM DESCRIPTION: RAD - Chest Single View - 10/20/2020 4:51 pm CLINICAL HISTORY: sob COMPARISON: Chest Single View dated 10/19/2020; Chest Single View dated 10/18/2020; Chest Single View da chris 10/16/2020; Chest Pa And Lat (2 Views) dated 12/11/2019; Chest For Pe Angio dated 10/16/2020 FINDINGS: Mild improved aeration lungs compared with 10/19/2020. Persistent prominence of the pulmon antonio interstitium. Similar configuration of the cardiac silhouette.No acute osseous abnormality. No si gnificant pleural effusions or pneumothorax. IMPRESSION: Improved aeration lungs compared with 10/19/2020. There are still some residual opacitie s likely representing sequela of recent pneumonia
[2020-10-20] MEDS: AMITRIPTYLINE 10 MG TAB PO SCH (21:06)
[2020-10-21] MEDS: LORazepam 2 MG/ML VIAL IV PRN ×2 (02:44→20:33)
--- NOTE | 2020-10-21 06:09 | P.PN ---
Subjective Date of Service: 10/21/20 Chief Complaint: SOB Subjective: Other (Patient now on BiPAP.) Physical Examination - Vital Signs Temperature: 97.6 F Blood Pressure: 132/74 Pulse: 72 Respirations: 17 Pulse Ox (%): 95 - Studies Medications List Reviewed: Yes Assessment & Plan Discharge Plan: Home Plan to discharge in: Greater than 2 days Physician Review Additional Text: COVID: Positive CT Chest: COMPARISON: No comparisons FINDINGS: Chest Wall: No suspicious thyroid nodules or pathologic lymphadenopathy. Lungs: Moderate bilateral irregular airspace disease. Pleura: No significant effusions or pneumothorax. Mediastinum/alex: No pathologic lymphadenopathy. Small hiatal hernia. Pulmonary arteries/Aorta: No pulmonary embolism identified to the level of the segmental pulmonary arteries. Subsegmental pulmonary arteries cannot be evaluated due to motion artifact. No aortic aneurysm. Heart: No significant pericardial effusion. Normal heart size. Upper abdomen: No acute abnormality. Hepatic steatosis. Bones: No acute abnormality. IMPRESSION: No pulmonary embolus of the level of the segmental pulmonary arteries. Moderate widespread bilateral airspace disease concerning for multifocal pneumonia, including Covid-19. Follow up CXR: COMPARISON: Chest Single View dated 10/20/2020; Chest Single View dated 10/19/2020; Chest Single View dated 10/18/2020; Chest Single View dated 10/16/2020 FINDINGS: Portable technique limits examination quality. Mild worsening is seen in lung aeration since 10/20/2020 study. The heart is upper limit normal in size. No displaced fractures. IMPRESSION: Mild worsening is seen in lung aeration since comparative study. Physical Exam: General: Alert, In no apparent distress, Oriented x3 Respiratory: Diminished. Currently on BiPAP at 80% Cardiovascular: Regular rate/rhythm, Normal S1 S2, No murmurs Gastrointestinal: Normal bowel sounds, Soft and benign, Non-distended, No tenderness Musculoskeletal: No clubbing, No swelling, No tenderness Neurological: Normal speech, Normal tone Lymphatics: No axilla or inguinal lymphadenopathy Impression: Acute respiratory failure with hypoxia secondary to bilateral Covid pneumonia, unvaccinated Elevated liver function Plan: Patient has declined. Patient now on BiPAP 80%. Continue IV steroids. LFTs elevated. Baricitinib was discontinued due to elevated liver function. Continue to monitor closely. Continue to monitor CRP and ferritin. Encourage ambulation, incentive spirometer and proning. Respiratory to continue to wean off. Will discuss with pulmonology for further recommendation. Patient remains on DVT prophylaxisEliquis. Physical therapy ordered to help ambulate. DVT prophylaxis: Eliquis CODE STATUS: Full code Advance care [id number] minutes: Home at discharge Time Spent Managing Pts Care (In Minutes): 55
[2020-10-21 07:05] LABS: Absolute Lymphocytes (CBC) 0.6 K/uL (0.7-4.9); Basophils % 0.1 % (0-1.3); Hematocrit 43.6 % (36.0-45.0); MPV 7.6 fL (7.6-11.3); RBC Red Blood Cell Count 4.99 M/uL (3.86-4.86)
[2020-10-21 08:02] LABS: AST/SGOT 188 U/L (15-37); Albumin 2.8 g/dL (3.4-5.0); Alkaline Phosphatase 80 U/L (45-117); BUN Blood Urea Nitrogen 19 mg/dL (7-18); Bicarbonate 28 mmol/L (21-32); Bilirubin Total 0.6 mg/dL (0.2-1.0); Ferritin 933.1 ng/mL (8-388); Glucose Level 120 mg/dL (74-106); Magnesium 2.6 mg/dL (1.8-2.4); Potassium 4.2 mmol/L (3.5-5.1); Protein, Total 6.8 g/dL (6.4-8.2); Sodium Level 143 mmol/L (136-145)
[2020-10-21 08:04] LABS: ALT/SGPT 561 U/L (12-78)
[2020-10-21] MEDS: ZINC SULFATE 220 MG CAP PO SCH (08:50)
[2020-10-21] MEDS: METHYLPREDNISOLONE 125 MG INJ IV SCH ×3 (08:50→20:33)
[2020-10-21] MEDS: FAMOTIDINE 20 MG TAB PO SCH ×2 (08:50→20:33)
[2020-10-21] MEDS: ASPIRIN EC 81 MG TAB PO SCH (08:50)
[2020-10-21] MEDS: ASCORBIC ACID 500 MG TABLET PO SCH ×4 (08:50→20:33)
[2020-10-21] MEDS: APIXABAN 2.5 MG TABLET PO SCH ×2 (08:50→20:33)
[2020-10-21] MEDS: THIAMINE HCL 100 MG TABLET PO SCH ×2 (08:50→20:33)
[2020-10-21] MEDS: VITAMIN D 1000 UNIT TAB PO SCH (08:50)
--- NOTE | 2020-10-21 09:10 | RAD REPORT ---
EXAM DESCRIPTION: RAD - Chest Single View - 10/21/2020 4:54 am CLINICAL HISTORY: Follow-up Covid Chest pain. COMPARISON: Chest Single View dated 10/20/2020; Chest Single View dated 10/19/2020; Chest Single View da chris 10/18/2020; Chest Single View dated 10/16/2020 FINDINGS: Portable technique limits examination quality. Mild worsening is seen in lung aeration since 10/20/2020 study. The heart is upper limit normal in si ze. No displaced fractures. IMPRESSION: Mild worsening is seen in lung aeration since comparative study.
[2020-10-21 13:22] LABS: Blood Morphology Comment NOT SEEN (NOT SEEN); Platelet Estimate ADEQ
[2020-10-21] MEDS: ACETAMINOPHEN 500 MG TAB PO PRN (18:24)
[2020-10-21] MEDS: AMITRIPTYLINE 10 MG TAB PO SCH (20:32)
[2020-10-22] MEDS: LORazepam 2 MG/ML VIAL IV PRN ×3 (04:22→21:39)
--- NOTE | 2020-10-22 06:19 | P.PN ---
Subjective Date of Service: 10/22/20 Chief Complaint: SOB Subjective: Improving (Patient now with less BiPAP requirement. Currently on 70% FiO2) Physical Examination - Vital Signs Temperature: 97.3 F Blood Pressure: 118/62 Pulse: 89 Respirations: 24 Pulse Ox (%): 92 - Studies Microbiology Data (last 24 hrs): 10/16/20 06:02 Blood - Blood Aerobic Blood Culture - Final No growth in 5 days. 10/16/20 06:02 Blood - Blood Anaerobic Blood Culture - Final No growth in 5 days. 10/16/20 06:02 Blood - Blood Blood Culture Gram Stain - Final 10/16/20 06:02 Blood - Blood Anaerobic Blood Culture - Final No growth in 5 days. Medications List Reviewed: Yes Assessment & Plan Discharge Plan: Home Plan to discharge in: Greater than 2 days Physician Review Additional Text: COVID: Positive CT Chest: COMPARISON: No comparisons FINDINGS: Chest Wall: No suspicious thyroid nodules or pathologic lymphadenopathy. Lungs: Moderate bilateral irregular airspace disease. Pleura: No significant effusions or pneumothorax. Mediastinum/alex: No pathologic lymphadenopathy. Small hiatal hernia. Pulmonary arteries/Aorta: No pulmonary embolism identified to the level of the segmental pulmonary arteries. Subsegmental pulmonary arteries cannot be evaluated due to motion artifact. No aortic aneurysm. Heart: No significant pericardial effusion. Normal heart size. Upper abdomen: No acute abnormality. Hepatic steatosis. Bones: No acute abnormality. IMPRESSION: No pulmonary embolus of the level of the segmental pulmonary arteries. Moderate widespread bilateral airspace disease concerning for multifocal pneumonia, including Covid-19. Follow up CXR: CLINICAL HISTORY: Shortness of breath COMPARISON: October 21, 2020 FINDINGS: No significant change in moderate bilateral pulmonary opacities. Heart is mildly enlarged IMPRESSION: No significant change in the moderate bilateral pneumonia Physical Exam: General: Alert, In no apparent distress, Oriented x3 Respiratory: Diminished. Currently on BiPAP at 70% Cardiovascular: Regular rate/rhythm, Normal S1 S2, No murmurs Gastrointestinal: Normal bowel sounds, Soft and benign, Non-distended, No tenderness Musculoskeletal: No clubbing, No swelling, No tenderness Neurological: Normal speech, Normal tone Lymphatics: No axilla or inguinal lymphadenopathy Impression: Acute respiratory failure with hypoxia secondary to bilateral Covid pneumonia, unvaccinated Elevated liver function Plan: Patient appears better today. Now requiring less BiPAP at 70%. Continue IV steroids. Continue to monitor elevated liver function. Baricitinib was discontinued due to elevated liver function. Continue to monitor closely. Continue to monitor CRP and ferritin. Encourage ambulation, incentive spirometer and proning. Respiratory to continue to wean off. Will discuss with pulmonology for further recommendation. Patient remains on DVT prophylaxisEliquis. Physical therapy ordered to help ambulate. DVT prophylaxis: Eliquis CODE STATUS: Full code Advance care [id number] minutes: Home at discharge Time Spent Managing Pts Care (In Minutes): 55
[2020-10-22 06:39] LABS: Absolute Lymphocytes (CBC) 0.6 K/uL (0.7-4.9); Basophils % 0.1 % (0-1.3); Hematocrit 44.9 % (36.0-45.0); MPV 7.8 fL (7.6-11.3); RBC Red Blood Cell Count 5.08 M/uL (3.86-4.86)
[2020-10-22 07:10] LABS: Albumin 2.9 g/dL (3.4-5.0); Bilirubin Total 0.6 mg/dL (0.2-1.0); C-Reactive Protein 22.6 mg/L (<3.00); Ferritin 867.5 ng/mL (8-388); Magnesium 2.6 mg/dL (1.8-2.4)
--- NOTE | 2020-10-22 07:14 | RAD REPORT ---
EXAM DESCRIPTION: [facility] Single View10/22/2020 5:00 am CLINICAL HISTORY: Shortness of breath COMPARISON: October 21, 2020 FINDINGS: No significant change in moderate bilateral pulmonary opacities. Heart is mildly enlarged IMPRESSION: No significant change in the moderate bilateral pneumonia
[2020-10-22] MEDS: ASPIRIN EC 81 MG TAB PO SCH (08:37)
[2020-10-22] MEDS: VITAMIN D 1000 UNIT TAB PO SCH (08:37)
[2020-10-22] MEDS: APIXABAN 2.5 MG TABLET PO SCH ×2 (08:38→21:37)
[2020-10-22] MEDS: THIAMINE HCL 100 MG TABLET PO SCH ×2 (08:38→21:37)
[2020-10-22] MEDS: ZINC SULFATE 220 MG CAP PO SCH (08:38)
[2020-10-22] MEDS: ASCORBIC ACID 500 MG TABLET PO SCH ×4 (08:38→21:37)
[2020-10-22] MEDS: FAMOTIDINE 20 MG TAB PO SCH ×2 (08:38→21:37)
[2020-10-22] MEDS: METHYLPREDNISOLONE 125 MG INJ IV SCH ×3 (08:38→21:37)
[2020-10-22 09:33] LABS: Blood Morphology Comment NOT SEEN (NOT SEEN); Platelet Estimate INCR
[2020-10-22] MEDS: AMITRIPTYLINE 10 MG TAB PO SCH (21:39)
--- NOTE | 2020-10-23 06:16 | P.PN ---
Subjective Date of Service: 10/23/20 Chief Complaint: SOB Subjective: Improving Physical Examination - Vital Signs Temperature: 97.5 F Blood Pressure: 141/85 Pulse: 91 Respirations: 20 Pulse Ox (%): 90 - Studies Microbiology Data (last 24 hrs): 10/16/20 06:02 Blood - Blood Aerobic Blood Culture - Final 10/16/20 06:02 Blood - Blood Blood Culture Gram Stain - Final 10/16/20 06:02 Blood - Blood Anaerobic Blood Culture - Final No growth in 5 days. Medications List Reviewed: Yes Assessment & Plan Discharge Plan: Home Plan to discharge in: 72 Hours Physician Review Additional Text: COVID: Positive CT Chest: COMPARISON: No comparisons FINDINGS: Chest Wall: No suspicious thyroid nodules or pathologic lymphadenopathy. Lungs: Moderate bilateral irregular airspace disease. Pleura: No significant effusions or pneumothorax. Mediastinum/alex: No pathologic lymphadenopathy. Small hiatal hernia. Pulmonary arteries/Aorta: No pulmonary embolism identified to the level of the segmental pulmonary arteries. Subsegmental pulmonary arteries cannot be evaluated due to motion artifact. No aortic aneurysm. Heart: No significant pericardial effusion. Normal heart size. Upper abdomen: No acute abnormality. Hepatic steatosis. Bones: No acute abnormality. IMPRESSION: No pulmonary embolus of the level of the segmental pulmonary arteries. Moderate widespread bilateral airspace disease concerning for multifocal pneumonia, including Covid-19. Follow up CXR: CLINICAL HISTORY: Shortness of breath COMPARISON: October 21, 2020 FINDINGS: No significant change in moderate bilateral pulmonary opacities. Heart is mildly enlarged IMPRESSION: No significant change in the moderate bilateral pneumonia Physical Exam: General: Alert, In no apparent distress, Oriented x3 Respiratory: Patient continues to improve. Patient on 50% FiO2 on BiPAP. Likely can transition to nasal cannula. Cardiovascular: Regular rate/rhythm, Normal S1 S2, No murmurs Gastrointestinal: Normal bowel sounds, Soft and benign, Non-distended, No tenderness Musculoskeletal: No clubbing, No swelling, No tenderness Neurological: Normal speech, Normal tone Lymphatics: No axilla or inguinal lymphadenopathy Impression: Acute respiratory failure with hypoxia secondary to bilateral Covid pneumonia, unvaccinated Elevated liver function Plan: Patient continues to improve. Now down to 50% FiO2 on BiPAP. Continue to wean off. Respiratory to trial on nasal cannula. Continue to monitor elevated liver function. Will check liver ultrasound. Baricitinib discontinued due to elevated liver function. Continue with IV Solu-Medrol. This has been decreased by pulmonology. Eliquis also decreased by pulmonology. Continue incentive spirometer, ambulation, and proning. Anticipate continued improvement over the next 72 hours. DVT prophylaxis: Eliquis CODE STATUS: Full code Advance care [id number] minutes: Home at discharge Time Spent Managing Pts Care (In Minutes): 55
[2020-10-23 07:19] LABS: Absolute Lymphocytes (CBC) 0.8 K/uL (0.7-4.9); Basophils % 0.1 % (0-1.3); Hematocrit 46.4 % (36.0-45.0); MPV 7.8 fL (7.6-11.3)
[2020-10-23 07:44] LABS: Bilirubin Total 0.7 mg/dL (0.2-1.0); C-Reactive Protein 27.2 mg/L (<3.00); Magnesium 2.7 mg/dL (1.8-2.4); Potassium 4.8 mmol/L (3.5-5.1); Protein, Total 7.2 g/dL (6.4-8.2)
[2020-10-23] MEDS: APIXABAN 2.5 MG TABLET PO SCH ×2 (08:20→21:17)
[2020-10-23] MEDS: ASPIRIN EC 81 MG TAB PO SCH (08:20)
[2020-10-23] MEDS: THIAMINE HCL 100 MG TABLET PO SCH ×2 (08:20→21:17)
[2020-10-23] MEDS: VITAMIN D 1000 UNIT TAB PO SCH (08:20)
[2020-10-23] MEDS: METHYLPREDNISOLONE 125 MG INJ IV SCH (08:20)
[2020-10-23] MEDS: ZINC SULFATE 220 MG CAP PO SCH (08:20)
[2020-10-23] MEDS: FAMOTIDINE 20 MG TAB PO SCH ×2 (08:20→21:16)
[2020-10-23] MEDS: ASCORBIC ACID 500 MG TABLET PO SCH ×4 (08:20→21:17)
--- NOTE | 2020-10-23 08:37 | RAD REPORT ---
EXAM DESCRIPTION: RAD - Chest Single View - 10/23/2020 6:38 am CLINICAL HISTORY: follow up COVID COMPARISON: Chest Single View dated 10/22/2020; Chest Single View dated 10/21/2020; Chest Single View da chris 10/20/2020; Chest Single View dated 10/19/2020; Chest For Pe Angio dated 10/16/2020 FINDINGS: Improved aeration of the lungs compared with 10/21/2020. Cardiomegaly.No acute osseous abn ormality. No significant pleural effusions or pneumothorax. Diffuse prominence of the pulmonary inter stitium. IMPRESSION: Improved aeration of the lungs with only mild residual opacities.
--- NOTE | 2020-10-23 10:36 | P.PN ---
Subjective Date of Service: 10/23/20 Chief Complaint: COVID penumonia Subjective: Improving (O2 requirement declining) Review of Systems Respiratory: Shortness of Breath Physical Examination - Vital Signs Temperature: 97.4 F Blood Pressure: 123/79 Pulse: 91 Respirations: 24 Pulse Ox (%): 94 - Studies Microbiology Data (last 24 hrs): 10/16/20 06:02 Blood - Blood Aerobic Blood Culture - Final 10/16/20 06:02 Blood - Blood Blood Culture Gram Stain - Final 10/16/20 06:02 Blood - Blood Anaerobic Blood Culture - Final No growth in 5 days. Medications List Reviewed: Yes Assessment & Plan - Problems (Diagnosis) (1) Pneumonia due to 2019 novel coronavirus Current Visit: Yes Status: Acute Plan: Improving/ Decrease solumedrol/ LFT abnormal/ CXRY improved plan to wean and poss DC / Reduce Eliquis
[2020-10-23] MEDS: METHYLPREDNISOLONE 40 MG INJ IV SCH ×2 (12:10→21:17)
--- NOTE | 2020-10-23 20:28 | RAD REPORT ---
EXAM DESCRIPTION: US - Liver Only - 10/23/2020 3:35 pm CLINICAL HISTORY: elevated liver function COMPARISON: No comparisons FINDINGS: The liver demonstrates diffuse fatty infiltration.No focal liver lesion or intrahepatic bi liary dilatation.No evidence of portal vein thrombosis. The spleen normal in size. IMPRESSION: Fatty liver.
[2020-10-23] MEDS: AMITRIPTYLINE 10 MG TAB PO SCH (21:16)
--- NOTE | 2020-10-24 06:14 | P.PN ---
Subjective Date of Service: 10/24/20 Chief Complaint: SOB Subjective: Other (Overall stable. Patient remains on BiPAP.) Physical Examination - Vital Signs Temperature: 97.7 F Blood Pressure: 129/73 Pulse: 92 Respirations: 18 Pulse Ox (%): 88 - Studies Medications List Reviewed: Yes Assessment & Plan Discharge Plan: Home Plan to discharge in: Greater than 2 days Physician Review Additional Text: COVID: Positive CT Chest: COMPARISON: No comparisons FINDINGS: Chest Wall: No suspicious thyroid nodules or pathologic lymphadenopathy. Lungs: Moderate bilateral irregular airspace disease. Pleura: No significant effusions or pneumothorax. Mediastinum/alex: No pathologic lymphadenopathy. Small hiatal hernia. Pulmonary arteries/Aorta: No pulmonary embolism identified to the level of the segmental pulmonary arteries. Subsegmental pulmonary arteries cannot be evaluated due to motion artifact. No aortic aneurysm. Heart: No significant pericardial effusion. Normal heart size. Upper abdomen: No acute abnormality. Hepatic steatosis. Bones: No acute abnormality. IMPRESSION: No pulmonary embolus of the level of the segmental pulmonary arteries. Moderate widespread bilateral airspace disease concerning for multifocal pneumonia, including Covid-19. Liver ultrasound: COMPARISON: No comparisons FINDINGS: The liver demonstrates diffuse fatty infiltration.No focal liver lesion or intrahepatic biliary dilatation.No evidence of portal vein thrombosis. The spleen normal in size. IMPRESSION: Fatty liver. Follow up CXR: CLINICAL HISTORY: Shortness of breath COMPARISON: October 21, 2020 FINDINGS: No significant change in moderate bilateral pulmonary opacities. Heart is mildly enlarged IMPRESSION: No significant change in the moderate bilateral pneumonia Physical Exam: General: Alert, In no apparent distress, Oriented x3 Respiratory: Patient on BiPAP at 95%. Previously on 100% Cardiovascular: Regular rate/rhythm, Normal S1 S2, No murmurs Gastrointestinal: Normal bowel sounds, Soft and benign, Non-distended, No tenderness Musculoskeletal: No clubbing, No swelling, No tenderness Neurological: Normal speech, Normal tone Lymphatics: No axilla or inguinal lymphadenopathy Impression: Acute respiratory failure with hypoxia secondary to bilateral Covid pneumonia, unvaccinated Elevated liver function Leukocytosis Chronic pain Anxiety Obesity, BMI 42.0 Plan: Acute respiratory failure with hypoxia secondary to bilateral Covid pneumonia, unvaccinated: Patient clinically stable. Currently on BiPAP at 95% FiO2. Continue to wean off to maintain sats above 93%. White count elevated. Will start Rocephin. Case discussed in detail with pulmonology. CRP and ferritin improved. Liver function tests improved. Liver ultrasound shows fatty liver. Baricitinib has been discontinued due to elevated liver function. Continue IV Solu-Medrol, supplementation. Continue incentive spirometer, ambulation and proning. Will provide medication for pain. Anticipate continued improvement. I will turn the service over to the hospitalist team tomorrow. I will go over the plan of care with him. Elevated liver function: Baricitinib has been discontinued. Liver function tests improved. Liver ultrasound shows fatty liver Leukocytosis: Rocephin added to cover for opportunistic infection. Chronic pain: Continue Elavil. Will provide tramadol. Anxiety: Will provide Ativan Obesity, BMI 42.0: Will address lifestyle modification education patient clinically stable. DVT prophylaxis: Raiza CODE STATUS: Full code Advance care minutes: Home at discharge Time Spent Managing Pts Care (In Minutes): 55
[2020-10-24] MEDS: METHYLPREDNISOLONE 40 MG INJ IV SCH ×3 (07:52→20:31)
[2020-10-24] MEDS: ASPIRIN EC 81 MG TAB PO SCH (07:52)
[2020-10-24] MEDS: ZINC SULFATE 220 MG CAP PO SCH (07:53)
[2020-10-24] MEDS: VITAMIN D 1000 UNIT TAB PO SCH (07:53)
[2020-10-24] MEDS: ASCORBIC ACID 500 MG TABLET PO SCH ×4 (07:53→20:32)
[2020-10-24] MEDS: FAMOTIDINE 20 MG TAB PO SCH ×2 (07:53→20:31)
[2020-10-24 07:54] LABS: Absolute Lymphocytes (CBC) 0.9 K/uL (0.7-4.9); Basophils % 0.2 % (0-1.3); Hematocrit 44.4 % (36.0-45.0); Lymphocytes % 5.1 % (15.3-44.8); RBC Red Blood Cell Count 5.05 M/uL (3.86-4.86)
[2020-10-24] MEDS: THIAMINE HCL 100 MG TABLET PO SCH ×2 (07:54→20:31)
[2020-10-24] MEDS: APIXABAN 2.5 MG TABLET PO SCH ×2 (07:54→20:31)
[2020-10-24 07:59] LABS: Albumin 2.9 g/dL (3.4-5.0); Bilirubin Total 0.6 mg/dL (0.2-1.0); C-Reactive Protein 26.5 mg/L (<3.00); Ferritin 702.9 ng/mL (8-388); Magnesium 2.4 mg/dL (1.8-2.4); Potassium 4.7 mmol/L (3.5-5.1); Protein, Total 7.1 g/dL (6.4-8.2)
[2020-10-24] MEDS: TRAMADOL HCL 50 MG TAB PO PRN (09:28)
[2020-10-24] MEDS: CEFTRIAXONE/SWI 1gm 1 GM/10 ML SYR IV SCH (13:48)
[2020-10-24] MEDS: LORazepam 2 MG/ML VIAL IV PRN (20:32)
[2020-10-24] MEDS: AMITRIPTYLINE 10 MG TAB PO SCH (20:32)
[2020-10-25 07:45] LABS: Basophils % 0.2 % (0-1.3); Hematocrit 44.3 % (36.0-45.0); Lymphocytes % 6.1 % (15.3-44.8); MPV 7.7 fL (7.6-11.3); RBC Red Blood Cell Count 5.01 M/uL (3.86-4.86)
--- NOTE | 2020-10-25 08:00 | RAD REPORT ---
EXAM DESCRIPTION: [facility] Single View10/25/2020 7:08 am CLINICAL HISTORY: Shortness of breath COMPARISON: October 23, 2020 FINDINGS: Mild worsening in diffuse bilateral pulmonary opacities. Heart is normal size IMPRESSION: Mild worsening in diffuse bilateral pulmonary opacities probably pneumonia
[2020-10-25 08:30] LABS: AST/SGOT 131 U/L (15-37); Albumin 2.8 g/dL (3.4-5.0); Alkaline Phosphatase 75 U/L (45-117); BUN Blood Urea Nitrogen 23 mg/dL (7-18); Bicarbonate 30 mmol/L (21-32); Bilirubin Total 0.6 mg/dL (0.2-1.0); Ferritin 741.2 ng/mL (8-388); Glucose Level 91 mg/dL (74-106); Magnesium 2.4 mg/dL (1.8-2.4); Potassium 4.4 mmol/L (3.5-5.1); Sodium Level 141 mmol/L (136-145)
[2020-10-25 08:42] LABS: ALT/SGPT 667 U/L (12-78)
[2020-10-25] MEDS: ASPIRIN EC 81 MG TAB PO SCH (08:48)
[2020-10-25] MEDS: METHYLPREDNISOLONE 40 MG INJ IV SCH ×3 (08:48→20:23)
[2020-10-25] MEDS: ZINC SULFATE 220 MG CAP PO SCH (08:48)
[2020-10-25] MEDS: CEFTRIAXONE/SWI 1gm 1 GM/10 ML SYR IV SCH (08:48)
[2020-10-25] MEDS: FAMOTIDINE 20 MG TAB PO SCH ×2 (08:48→20:23)
[2020-10-25] MEDS: APIXABAN 2.5 MG TABLET PO SCH ×2 (08:48→20:23)
[2020-10-25] MEDS: ASCORBIC ACID 500 MG TABLET PO SCH ×4 (08:48→20:23)
[2020-10-25] MEDS: THIAMINE HCL 100 MG TABLET PO SCH ×2 (08:48→20:23)
[2020-10-25] MEDS: VITAMIN D 1000 UNIT TAB PO SCH (08:48)
[2020-10-25] MEDS: LORazepam 2 MG/ML VIAL IV PRN (20:24)
[2020-10-25] MEDS: AMITRIPTYLINE 10 MG TAB PO SCH (20:24)
--- NOTE | 2020-10-25 20:44 | P.PN ---
Subjective Date of Service: 10/25/20 Chief Complaint: SOB Subjective: Improving (Fio2 declining ?) Review of Systems General: Weakness Respiratory: Shortness of Breath Physical Examination - Vital Signs Temperature: 98 F Blood Pressure: 149/64 Pulse: 100 Respirations: 20 Pulse Ox (%): 92 - Physical Exam General: Alert, In no apparent distress, Oriented x3, Cooperative - Studies Medications List Reviewed: Yes Assessment & Plan - Problems (Diagnosis) (1) Pneumonia due to 2019 novel coronavirus Current Visit: Yes Status: Acute Plan: Improving try NC o2 AM plan for discharge
[2020-10-26 06:39] LABS: Absolute Lymphocytes (CBC) 1.3 K/uL (0.7-4.9); Basophils % 0.2 % (0-1.3); Hematocrit 44.4 % (36.0-45.0); Lymphocytes % 6.6 % (15.3-44.8); MPV 7.6 fL (7.6-11.3); RBC Red Blood Cell Count 5.01 M/uL (3.86-4.86)
[2020-10-26 07:05] LABS: Albumin 2.8 g/dL (3.4-5.0); Bilirubin Total 0.6 mg/dL (0.2-1.0); C-Reactive Protein 55.5 mg/L (<3.00); Ferritin 791.7 ng/mL (8-388); Magnesium 2.4 mg/dL (1.8-2.4); Potassium 4.1 mmol/L (3.5-5.1); Protein, Total 7.1 g/dL (6.4-8.2)
--- NOTE | 2020-10-26 07:05 | RAD REPORT ---
EXAM DESCRIPTION: RAD - Chest Single View - 10/26/2020 6:50 am CLINICAL HISTORY: Follow-up Covid COMPARISON: October 25, October 23 TECHNIQUE: AP portable chest image was obtained 10/26/2020 6:50 am . FINDINGS: Bilateral airspace disease remains present. Pattern is similar or perhaps fractionally imp roved from the October 25 examination. Progression is not suspected. Cardiomediastinal silhouette is stable. No measurable pleural effusion and no pneumothorax. No acute bony abnormality seen. No acute aortic findings suspected. IMPRESSION: Bilateral COVID-19 pneumonia pattern similar or fractionally improved from October 25.
[2020-10-26] MEDS: METHYLPREDNISOLONE 40 MG INJ IV SCH ×3 (08:14→20:52)
[2020-10-26] MEDS: CEFTRIAXONE/SWI 1gm 1 GM/10 ML SYR IV SCH (08:14)
[2020-10-26] MEDS: VITAMIN D 1000 UNIT TAB PO SCH (08:15)
[2020-10-26] MEDS: ASPIRIN EC 81 MG TAB PO SCH (08:15)
[2020-10-26] MEDS: THIAMINE HCL 100 MG TABLET PO SCH ×2 (08:15→20:52)
[2020-10-26] MEDS: APIXABAN 2.5 MG TABLET PO SCH ×2 (08:16→20:52)
[2020-10-26] MEDS: ASCORBIC ACID 500 MG TABLET PO SCH ×4 (08:16→20:52)
[2020-10-26] MEDS: ZINC SULFATE 220 MG CAP PO SCH (08:16)
[2020-10-26] MEDS: FAMOTIDINE 20 MG TAB PO SCH ×2 (08:17→20:52)
[2020-10-26 09:04] LABS: Blood Morphology Comment NOT SEEN (NOT SEEN); Platelet Estimate ADEQ
[2020-10-26] MEDS: AMITRIPTYLINE 10 MG TAB PO SCH (20:51)
[2020-10-26] MEDS: LORazepam 2 MG/ML VIAL IV PRN (20:52)
[2020-10-27 07:22] LABS: Absolute Lymphocytes (CBC) 1.3 K/uL (0.7-4.9); Hematocrit 42.4 % (36.0-45.0); Lymphocytes % 7.2 % (15.3-44.8); MPV 7.8 fL (7.6-11.3); RBC Red Blood Cell Count 4.82 M/uL (3.86-4.86)
[2020-10-27 07:48] LABS: AST/SGOT 91 U/L (15-37); Albumin 2.5 g/dL (3.4-5.0); Alkaline Phosphatase 68 U/L (45-117); BUN Blood Urea Nitrogen 24 mg/dL (7-18); Bicarbonate 31 mmol/L (21-32); Bilirubin Total 0.5 mg/dL (0.2-1.0); Glucose Level 96 mg/dL (74-106); Magnesium 2.4 mg/dL (1.8-2.4); Potassium 4.3 mmol/L (3.5-5.1); Protein, Total 6.7 g/dL (6.4-8.2); Sodium Level 141 mmol/L (136-145)
[2020-10-27 07:50] LABS: ALT/SGPT 598 U/L (12-78)
[2020-10-27] MEDS: VITAMIN D 1000 UNIT TAB PO SCH (08:25)
[2020-10-27] MEDS: ZINC SULFATE 220 MG CAP PO SCH (08:25)
[2020-10-27] MEDS: FAMOTIDINE 20 MG TAB PO SCH ×2 (08:25→22:05)
[2020-10-27] MEDS: METHYLPREDNISOLONE 40 MG INJ IV SCH ×3 (08:25→22:06)
[2020-10-27] MEDS: THIAMINE HCL 100 MG TABLET PO SCH ×2 (08:26→22:05)
[2020-10-27] MEDS: APIXABAN 2.5 MG TABLET PO SCH ×2 (08:26→22:05)
[2020-10-27] MEDS: CEFTRIAXONE/SWI 1gm 1 GM/10 ML SYR IV SCH (08:26)
[2020-10-27] MEDS: ASCORBIC ACID 500 MG TABLET PO SCH ×4 (08:26→22:05)
[2020-10-27] MEDS: ASPIRIN EC 81 MG TAB PO SCH (08:37)
--- NOTE | 2020-10-27 11:23 | P.PN ---
Subjective Date of Service: 10/27/20 Chief Complaint: resp failure NC. Still high conc of Fio2 Review of Systems General: Weakness Respiratory: Shortness of Breath Physical Examination - Vital Signs Temperature: 96.9 F Blood Pressure: 120/73 Pulse: 90 Respirations: 28 Pulse Ox (%): 89 - Studies Medications List Reviewed: Yes Assessment & Plan - Problems (Diagnosis) (1) Pneumonia due to 2019 novel coronavirus Current Visit: Yes Status: Acute Plan: Titrate O2 sat of 90%. LFT stable/DC AB
--- NOTE | 2020-10-27 15:57 | P.PN ---
Subjective Date of Service: 10/25/20 Patient is feeling better. Tolerating diet. Her sats are in the low 90s. Review of Systems 10-point ROS is otherwise unremarkable Physical Examination - Vital Signs Temperature: 98.4 F Blood Pressure: 105/52 Pulse: 69 Respirations: 26 Pulse Ox (%): 91 - Physical Exam General: Alert, In no apparent distress, Oriented x3 Respiratory: Clear to auscultation bilaterally, Normal air movement Cardiovascular: Regular rate/rhythm, Normal S1 S2, No murmurs Gastrointestinal: Normal bowel sounds, Soft and benign, Non-distended, No tenderness Musculoskeletal: No clubbing, No swelling, No tenderness Neurological: Sensation intact, Cranial nerves 3-12 intact - Studies Medications List Reviewed: Yes Assessment & Plan - Problems (Diagnosis) (1) Pneumonia due to 2019 novel coronavirus Current Visit: Yes Status: Acute - Plan Continue with plan of care as mentioned below: 1. Continue with IV steroids 2. Monitor inflammatory markers 3. Repeat chest x-ray 4. O2 per protocol 5. Pulmonary consultation appreciated 6. Continue with albuterol inhaler therapy; also supportive care 7. GI and DVT prophylaxis Discharge Plan: Home Plan to discharge in: Greater than 2 days - Advance Directives Does patient have a Living Will: No Does patient have a Durable POA for Healthcare: No - Code Status/Comfort Care Code Status: Full Code Critical Care: No Time Spent Managing PTS Care (In Minutes): 35
--- NOTE | 2020-10-27 15:59 | P.PN ---
Date of Service: 10/26/20 Subjective Patient is doing well with no new complaints. Patient's clinical symptoms are improving. Patient's oxygen requirements are still elevated. Review of Systems 10-point ROS is otherwise unremarkable Physical Examination - Vital Signs reviewed - Physical Exam General: Alert, In no apparent distress, Oriented x3; continue on BiPAP support Respiratory: Clear to auscultation bilaterally, Normal air movement Cardiovascular: Regular rate/rhythm, Normal S1 S2, No murmurs Gastrointestinal: Normal bowel sounds, Soft and benign, Non-distended, No tenderness Musculoskeletal: No clubbing, No swelling, No tenderness Assessment & Plan - Problems (Diagnosis) (1) Pneumonia due to 2019 novel coronavirus Current Visit: Yes Status: Acute - Plan Continue with plan of care as mentioned below: 1. Continue with IV steroids 2. Monitor inflammatory markers 3. Repeat chest x-ray 4. O2 per protocol; continue on BiPAP support but will try to place on non-r ebreather 5. Pulmonary consultation appreciated 6. Continue with albuterol inhaler therapy; also supportive care 7. GI and DVT prophylaxis
--- NOTE | 2020-10-27 15:59 | P.PN ---
Date of Service: 10/27/20 Subjective Patient continues to improve with no new complaints; patient states she is feeling better. Would probably need to get her off of the BiPAP and tried non- rebreather throughout the day. When she was eating she was on the non- rebreather & satting in the high 80s and low 90s. Review of Systems 10-point ROS is otherwise unremarkable Physical Examination - Vital Signs reviewed - Physical Exam General: Alert, In no apparent distress, Oriented x3 Respiratory: Clear to auscultation bilaterally, Normal air movement Cardiovascular: Regular rate/rhythm, Normal S1 S2, No murmurs Gastrointestinal: Normal bowel sounds, Soft and benign, Non-distended, No tenderness Musculoskeletal: No clubbing, No swelling, No tenderness Assessment & Plan - Problems (Diagnosis) (1) Pneumonia due to 2019 novel coronavirus Current Visit: Yes Status: Acute - Plan Continue with plan of care as mentioned below: 1. Continue with IV steroids 2. Monitor inflammatory markers 3. Repeat chest x-ray 4. O2 per protocol 5. Pulmonary consultation appreciated 6. Continue with albuterol inhaler therapy; also supportive care 7. GI and DVT prophylaxis
[2020-10-27] MEDS: AMITRIPTYLINE 10 MG TAB PO SCH (22:05)
[2020-10-28 06:48] LABS: Absolute Lymphocytes (CBC) 1.6 K/uL (0.7-4.9); Basophils % 0.3 % (0-1.3); Hematocrit 43.8 % (36.0-45.0); Lymphocytes % 9.7 % (15.3-44.8); MPV 7.8 fL (7.6-11.3); RBC Red Blood Cell Count 4.98 M/uL (3.86-4.86)
[2020-10-28 07:10] LABS: AST/SGOT 87 U/L (15-37); Albumin 2.6 g/dL (3.4-5.0); Alkaline Phosphatase 68 U/L (45-117); BUN Blood Urea Nitrogen 27 mg/dL (7-18); Bicarbonate 29 mmol/L (21-32); Bilirubin Total 0.6 mg/dL (0.2-1.0); Ferritin 533.8 ng/mL (8-388); Glucose Level 84 mg/dL (74-106); Potassium 3.6 mmol/L (3.5-5.1); Protein, Total 6.8 g/dL (6.4-8.2); Sodium Level 141 mmol/L (136-145)
[2020-10-28 07:11] LABS: ALT/SGPT 554 U/L (12-78)
[2020-10-28] MEDS: VITAMIN D 1000 UNIT TAB PO SCH (08:07)
[2020-10-28] MEDS: ASCORBIC ACID 500 MG TABLET PO SCH ×4 (08:07→21:12)
[2020-10-28] MEDS: ASPIRIN EC 81 MG TAB PO SCH (08:08)
[2020-10-28] MEDS: APIXABAN 2.5 MG TABLET PO SCH ×2 (08:08→21:12)
[2020-10-28] MEDS: METHYLPREDNISOLONE 40 MG INJ IV SCH ×3 (08:08→21:12)
[2020-10-28] MEDS: ZINC SULFATE 220 MG CAP PO SCH (08:08)
[2020-10-28] MEDS: FAMOTIDINE 20 MG TAB PO SCH ×2 (08:08→21:12)
[2020-10-28] MEDS: THIAMINE HCL 100 MG TABLET PO SCH ×2 (08:08→21:12)
[2020-10-28] MEDS: AMITRIPTYLINE 10 MG TAB PO SCH (21:11)
[2020-10-28] MEDS: MELATONIN 5 MG TABLET PO PRN (21:11)
[2020-10-28] MEDS: TRAMADOL HCL 50 MG TAB PO PRN (21:15)
[2020-10-29 06:29] LABS: Absolute Lymphocytes (CBC) 0.9 K/uL (0.7-4.9); Basophils % 0.3 % (0-1.3); Hematocrit 41.6 % (36.0-45.0); Lymphocytes % 6.4 % (15.3-44.8); MPV 7.6 fL (7.6-11.3); RBC Red Blood Cell Count 4.74 M/uL (3.86-4.86)
[2020-10-29 06:50] LABS: AST/SGOT 93 U/L (15-37); Albumin 2.6 g/dL (3.4-5.0); Alkaline Phosphatase 62 U/L (45-117); BUN Blood Urea Nitrogen 23 mg/dL (7-18); Bicarbonate 30 mmol/L (21-32); Bilirubin Total 0.6 mg/dL (0.2-1.0); Ferritin 486.4 ng/mL (8-388); Glucose Level 115 mg/dL (74-106); Potassium 4.9 mmol/L (3.5-5.1); Protein, Total 6.6 g/dL (6.4-8.2); Sodium Level 139 mmol/L (136-145)
[2020-10-29 06:52] LABS: ALT/SGPT 542 U/L (12-78)
[2020-10-29] MEDS: METHYLPREDNISOLONE 40 MG INJ IV SCH ×3 (09:12→19:55)
[2020-10-29] MEDS: ZINC SULFATE 220 MG CAP PO SCH (09:13)
[2020-10-29] MEDS: FAMOTIDINE 20 MG TAB PO SCH ×2 (09:13→19:56)
[2020-10-29] MEDS: APIXABAN 2.5 MG TABLET PO SCH ×2 (09:13→19:56)
[2020-10-29] MEDS: ASCORBIC ACID 500 MG TABLET PO SCH ×4 (09:13→19:56)
[2020-10-29] MEDS: TRAMADOL HCL 50 MG TAB PO PRN (09:13)
[2020-10-29] MEDS: ASPIRIN EC 81 MG TAB PO SCH (09:13)
[2020-10-29] MEDS: VITAMIN D 1000 UNIT TAB PO SCH (09:13)
[2020-10-29] MEDS: THIAMINE HCL 100 MG TABLET PO SCH ×2 (09:13→19:56)
--- NOTE | 2020-10-29 10:37 | P.PN ---
Date of Service: 10/28/20 Subjective Patient is doing well with no new complaints. She is feeling a little bit better. Still requiring a large amount of oxygen. Review of Systems 10-point ROS is otherwise unremarkable Physical Examination - Vital Signs reviewed - Physical Exam General: Alert, In no apparent distress, Oriented x3; continue on BiPAP support Respiratory: Clear to auscultation bilaterally, Normal air movement Cardiovascular: Regular rate/rhythm, Normal S1 S2, No murmurs Gastrointestinal: Normal bowel sounds, Soft and benign, Non-distended, No tenderness Musculoskeletal: No clubbing, No swelling, No tenderness Assessment & Plan - Problems (Diagnosis) (1) Pneumonia due to 2019 novel coronavirus Current Visit: Yes Status: Acute - Plan Continue with plan of care as mentioned below: 1. Continue with IV steroids 2. Monitor inflammatory markers every 48 hrs 3. Repeat chest x-ray 4. O2 per protocol; continue on BiPAP support but will try to place on non-keara reather; will need to wean 5. Pulmonary consultation appreciated 6. Continue with albuterol inhaler therapy; also supportive care 7. GI and DVT prophylaxis
[2020-10-29] MEDS: AMITRIPTYLINE 10 MG TAB PO SCH (19:55)
[2020-10-29] MEDS: MELATONIN 5 MG TABLET PO PRN (19:56)
--- NOTE | 2020-10-29 21:44 | P.PN ---
Subjective Date of Service: 10/29/20 Chief Complaint: resp failure Subjective: Improving Improving/on high concentration of Fio2 Review of Systems Respiratory: Shortness of Breath Physical Examination - Vital Signs Temperature: 97 F Blood Pressure: 115/67 Pulse: 95 Respirations: 28 Pulse Ox (%): 96 - Physical Exam General: Alert, Oriented x3, Cooperative - Studies Medications List Reviewed: Yes Assessment & Plan - Problems (Diagnosis) (1) Pneumonia due to 2019 novel coronavirus Current Visit: Yes Status: Acute Plan: Resp failure/ Abnormal LFT/ WBc declining/labs reviwed
[2020-10-30 06:01] LABS: Absolute Lymphocytes (CBC) 1.4 K/uL (0.7-4.9); Hematocrit 41.7 % (36.0-45.0); Lymphocytes % 8.8 % (15.3-44.8); MPV 7.4 fL (7.6-11.3)
[2020-10-30 06:38] LABS: AST/SGOT 77 U/L (15-37); Albumin 2.6 g/dL (3.4-5.0); Alkaline Phosphatase 60 U/L (45-117); BUN Blood Urea Nitrogen 25 mg/dL (7-18); Bicarbonate 31 mmol/L (21-32); Bilirubin Total 0.6 mg/dL (0.2-1.0); Ferritin 402.6 ng/mL (8-388); Glucose Level 104 mg/dL (74-106); Potassium 4.4 mmol/L (3.5-5.1); Protein, Total 6.4 g/dL (6.4-8.2); Sodium Level 139 mmol/L (136-145)
[2020-10-30 06:45] LABS: ALT/SGPT 509 U/L (12-78)
[2020-10-30] MEDS: ASPIRIN EC 81 MG TAB PO SCH (07:44)
[2020-10-30] MEDS: THIAMINE HCL 100 MG TABLET PO SCH ×2 (07:44→20:52)
[2020-10-30] MEDS: ASCORBIC ACID 500 MG TABLET PO SCH ×4 (07:44→20:52)
[2020-10-30] MEDS: ZINC SULFATE 220 MG CAP PO SCH (07:45)
[2020-10-30] MEDS: APIXABAN 2.5 MG TABLET PO SCH ×2 (07:45→20:52)
[2020-10-30] MEDS: FAMOTIDINE 20 MG TAB PO SCH ×2 (07:45→20:52)
[2020-10-30] MEDS: VITAMIN D 1000 UNIT TAB PO SCH (07:45)
[2020-10-30] MEDS: METHYLPREDNISOLONE 40 MG INJ IV SCH ×3 (07:46→20:53)
--- NOTE | 2020-10-30 07:58 | P.PN ---
Date of Service: 10/29/20 Subjective Patient is in good spirits. She continues to improve. She clinically looks to be doing well & is sitting up in a chair. Review of Systems 10-point ROS is otherwise unremarkable Physical Examination - Vital Signs reviewed - Physical Exam General: Alert, In no apparent distress, Oriented x3; continue on BiPAP support Respiratory: Clear to auscultation bilaterally, Normal air movement Cardiovascular: Regular rate/rhythm, Normal S1 S2, No murmurs Gastrointestinal: Normal bowel sounds, Soft and benign, Non-distended, No tenderness Musculoskeletal: No clubbing, No swelling, No tenderness Assessment & Plan - Problems (Diagnosis) (1) Pneumonia due to 2019 novel coronavirus Current Visit: Yes Status: Acute - Plan Continue with plan of care as mentioned below: 1. Continue with IV steroids; can probably wean down to oral steroids 2. May repeated chest x-ray over the next 24-48 hr 3. Patient currently on high-flow at 90%. Cut her down to 85% and she is maintaining her sats really well. We can probably start trying to aggressively get her weaned down
--- NOTE | 2020-10-30 08:21 | RAD REPORT ---
EXAM DESCRIPTION: RAD - Chest Single View - 10/30/2020 5:38 am CLINICAL HISTORY: pneumonia, COVID-19 COMPARISON: October 26, October 25 TECHNIQUE: AP portable chest image was obtained 10/30/2020 5:38 am . FINDINGS: Lung volumes remain low. Lung volumes are reduced compared to the October 26 study. Bilater al interstitial and alveolar opacification remains. Left lung field shows a slight improvement though the differential is minimal. Right lung field opacification is not significantly different. The lowe r lung volume on the current study accentuates the opacification. Heart and vasculature are normal. No measurable pleural effusion and no pneumothorax. No acute bony abnormality seen. No acute aortic findings suspected. IMPRESSION: Bilateral COVID-19 pneumonia findings not substantially different from comparison studie s.
[2020-10-30 08:49] LABS: Blood Morphology Comment NOT SEEN (NOT SEEN); Platelet Estimate INCR; White Blood Cell Scan OK (OK)
--- NOTE | 2020-10-30 11:17 | P.PN ---
Subjective Date of Service: 10/30/20 Chief Complaint: resp failure Subjective: No C/O voiced (Feels better, weaned off BiPAP to high flow nasal cannula today. States minimal cough Denies any chest tightness or pain) Physical Examination - Vital Signs Temperature: 97.5 F Blood Pressure: 104/64 Pulse: 89 Respirations: 24 Pulse Ox (%): 92 - Physical Exam General: Alert, In no apparent distress, Oriented x3, Obese HEENT: Atraumatic, Normocephalic Neck: Supple, 2+ carotid pulse no bruit, JVD not distended Respiratory: Normal air movement, Diminished Cardiovascular: No edema, Regular rate/rhythm, Normal S1 S2 Gastrointestinal: Normal bowel sounds, Soft and benign, Non-distended, No tenderness Musculoskeletal: No clubbing, No swelling Neurological: Normal speech, Normal strength at 5/5 x4 extr - Studies Medications List Reviewed: Yes Assessment And Plan Plan to discharge in: 72 Hours Physician Review: Patient Assessed, Agree with Above Assessment and Plan Physician Review Additional Text: COVID: Positive CT Chest: COMPARISON: No comparisons FINDINGS: Chest Wall: No suspicious thyroid nodules or pathologic lymphadenopathy. Lungs: Moderate bilateral irregular airspace disease. Pleura: No significant effusions or pneumothorax. Mediastinum/alex: No pathologic lymphadenopathy. Small hiatal hernia. Pulmonary arteries/Aorta: No pulmonary embolism identified to the level of the segmental pulmonary arteries. Subsegmental pulmonary arteries cannot be evaluated due to motion artifact. No aortic aneurysm. Heart: No significant pericardial effusion. Normal heart size. Upper abdomen: No acute abnormality. Hepatic steatosis. Bones: No acute abnormality. IMPRESSION: No pulmonary embolus of the level of the segmental pulmonary arteries. Moderate widespread bilateral airspace disease concerning for multifocal pneumonia, including Covid-19. Liver ultrasound: COMPARISON: No comparisons F Impression: Acute respiratory failure with hypoxia secondary to bilateral Covid pneumonia, unvaccinated Elevated liver function Leukocytosis Chronic pain Anxiety Obesity, BMI 42.0 Plan: Continue to wean down O2 as tolerated Continue IV steroids for now since still O2 requirement Continue to wean high flowat 65% 30 L now O2 sat at 93% Status post baricitinib. Discontinued due to elevated liver enzymes Continue to trend LFTs as well as inflammatory markers CRP much improved Chronic pain: Continue Elavil. Will provide tramadol. Anxiety: Continue Ativan as needed Obesity, BMI 42.0: Reduce calorie intake advised DVT prophylaxis: Eliquis CODE STATUS: Full code Advance care [id number] minutes: Home at discharge Critical Care: Yes Time Spent Managing PTS Care (In Minutes): 30
[2020-10-30] MEDS: AMITRIPTYLINE 10 MG TAB PO SCH (20:52)
[2020-10-31 04:23] LABS: AST/SGOT 74 U/L (15-37); Albumin 2.8 g/dL (3.4-5.0); Alkaline Phosphatase 59 U/L (45-117); BUN Blood Urea Nitrogen 23 mg/dL (7-18); Bicarbonate 31 mmol/L (21-32); Bilirubin Total 0.5 mg/dL (0.2-1.0); C-Reactive Protein 7.15 mg/L (<3.00); Ferritin 379.2 ng/mL (8-388); Glucose Level 116 mg/dL (74-106); Potassium 4.6 mmol/L (3.5-5.1); Protein, Total 6.5 g/dL (6.4-8.2); Sodium Level 139 mmol/L (136-145)
[2020-10-31 04:24] LABS: ALT/SGPT 506 U/L (12-78)
--- NOTE | 2020-10-31 06:13 | P.PN ---
Subjective Date of Service: 10/31/20 Chief Complaint: resp failure Subjective: Improving (patient on 65% HF) Physical Examination - Vital Signs Temperature: 97.4 F Blood Pressure: 127/73 Pulse: 73 Respirations: 18 Pulse Ox (%): 89 - Studies Medications List Reviewed: Yes Assessment & Plan Discharge Plan: Home Plan to discharge in: 48 Hours Physician Review Additional Text: COVID: Positive CT Chest: COMPARISON: No comparisons FINDINGS: Chest Wall: No suspicious thyroid nodules or pathologic lymphadenopathy. Lungs: Moderate bilateral irregular airspace disease. Pleura: No significant effusions or pneumothorax. Mediastinum/alex: No pathologic lymphadenopathy. Small hiatal hernia. Pulmonary arteries/Aorta: No pulmonary embolism identified to the level of the segmental pulmonary arteries. Subsegmental pulmonary arteries cannot be evaluated due to motion artifact. No aortic aneurysm. Heart: No significant pericardial effusion. Normal heart size. Upper abdomen: No acute abnormality. Hepatic steatosis. Bones: No acute abnormality. IMPRESSION: No pulmonary embolus of the level of the segmental pulmonary arteries. Moderate widespread bilateral airspace disease concerning for multifocal pneumonia, including Covid-19. Liver ultrasound: COMPARISON: No comparisons FINDINGS: The liver demonstrates diffuse fatty infiltration.No focal liver lesion or intrahepatic biliary dilatation.No evidence of portal vein thrombosis. The spleen normal in size. IMPRESSION: Fatty liver. Follow up CXR: COMPARISON: October 26, October 25 TECHNIQUE: AP portable chest image was obtained 10/30/2020 5:38 am . FINDINGS: Lung volumes remain low. Lung volumes are reduced compared to the October 26 study. Bilateral interstitial and alveolar opacification remains. Left lung field shows a slight improvement though the differential is minimal. Right lung field opacification is not significantly different. The lower lung volume on the current study accentuates the opacification. Heart and vasculature are normal. No measurable pleural effusion and no pneumothorax. No acute bony abnormality seen. No acute aortic findings suspected. IMPRESSION: Bilateral COVID-19 pneumonia findings not substantially different from comparison studies. Physical Exam: General: Alert, In no apparent distress, Oriented x3 Respiratory: Breathing better. Currently on 65%HF. Cardiovascular: Regular rate/rhythm, Normal S1 S2, No murmurs Gastrointestinal: Normal bowel sounds, Soft and benign, Non-distended, No tenderness Musculoskeletal: No clubbing, No swelling, No tenderness Neurological: Normal speech, Normal tone Lymphatics: No axilla or inguinal lymphadenopathy Impression: Acute respiratory failure with hypoxia secondary to bilateral Covid pneumonia, unvaccinated Elevated liver function Leukocytosis Chronic pain Anxiety Obesity, BMI 42.0 Plan: Acute respiratory failure with hypoxia secondary to bilateral Covid pneumonia, unvaccinated: Patient reports improvement. Currently on 65% high flow. Patient clinically stable. Continue to wean off to maintain sats above 93%. Pulmonology decrease Solu-Medrol to prednisone. Encourage ambulation. Continue incentive spirometer, ambulation and proning. Will provide medication for pain. Anticipate continued improvement. Elevated liver function: Baricitinib has been discontinued. Liver function tests improved. Liver ultrasound shows fatty liver Leukocytosis: Patient no longer on antibiotic Chronic pain: Continue Elavil. Will provide tramadol. Anxiety: Will provide Ativan Obesity, BMI 42.0: Will address lifestyle modification education patient clinically stable. DVT prophylaxis: Eliquis CODE STATUS: Full code Advance care [id number] minutes: Home at discharge Time Spent Managing Pts Care (In Minutes): 55
[2020-10-31] MEDS: ASPIRIN EC 81 MG TAB PO SCH (09:01)
[2020-10-31] MEDS: ZINC SULFATE 220 MG CAP PO SCH (09:01)
[2020-10-31] MEDS: VITAMIN D 1000 UNIT TAB PO SCH (09:01)
[2020-10-31] MEDS: FAMOTIDINE 20 MG TAB PO SCH ×2 (09:02→20:17)
[2020-10-31] MEDS: ASCORBIC ACID 500 MG TABLET PO SCH ×4 (09:02→20:17)
[2020-10-31] MEDS: THIAMINE HCL 100 MG TABLET PO SCH ×2 (09:02→20:17)
[2020-10-31] MEDS: APIXABAN 2.5 MG TABLET PO SCH ×2 (09:02→20:17)
[2020-10-31] MEDS: METHYLPREDNISOLONE 40 MG INJ IV SCH (09:02)
--- NOTE | 2020-10-31 12:42 | P.PN ---
Subjective Date of Service: 10/31/20 Chief Complaint: resp failure Doign well O2 requirements decreased Review of Systems Respiratory: Shortness of Breath Physical Examination - Vital Signs Temperature: 97.6 F Blood Pressure: 122/69 Pulse: 81 Respirations: 31 Pulse Ox (%): 91 - Physical Exam General: Alert, In no apparent distress, Oriented x3, Cooperative - Studies Medications List Reviewed: Yes Assessment & Plan - Problems (Diagnosis) (1) Pneumonia due to 2019 novel coronavirus Current Visit: Yes Status: Acute Plan: Doign better/ plan for Dc O2 decrease/change to po pred Physician Review: Patient Assessed, Agree with Above Assessment and Plan
[2020-10-31] MEDS: predniSONE 20 MG TAB PO SCH (20:17)
[2020-10-31] MEDS: AMITRIPTYLINE 10 MG TAB PO SCH (20:17)
[2020-11-01 04:04] LABS: Basophils % 0.6 % (0-1.3); Hematocrit 44.1 % (36.0-45.0); Lymphocytes % 6.6 % (15.3-44.8); MPV 7.7 fL (7.6-11.3); RBC Red Blood Cell Count 4.97 M/uL (3.86-4.86)
[2020-11-01 04:20] LABS: AST/SGOT 67 U/L (15-37); Alkaline Phosphatase 61 U/L (45-117); BUN Blood Urea Nitrogen 23 mg/dL (7-18); Bicarbonate 32 mmol/L (21-32); Bilirubin Total 0.6 mg/dL (0.2-1.0); C-Reactive Protein 4.53 mg/L (<3.00); Ferritin 351.5 ng/mL (8-388); Glucose Level 110 mg/dL (74-106); Magnesium 2.4 mg/dL (1.8-2.4); Protein, Total 6.7 g/dL (6.4-8.2); Sodium Level 140 mmol/L (136-145)
[2020-11-01 04:22] LABS: ALT/SGPT 504 U/L (12-78)
--- NOTE | 2020-11-01 06:21 | P.PN ---
Subjective Date of Service: 11/01/20 Chief Complaint: resp failure Physical Examination - Vital Signs Temperature: 98.2 F Blood Pressure: 116/69 Pulse: 76 Respirations: 17 Pulse Ox (%): 92 - Studies Medications List Reviewed: Yes Assessment & Plan Physician Review: Patient Assessed, Agree with Above Assessment and Plan Physician Review Additional Text: COVID: Positive CT Chest: COMPARISON: No comparisons FINDINGS: Chest Wall: No suspicious thyroid nodules or pathologic lymphadenopathy. Lungs: Moderate bilateral irregular airspace disease. Pleura: No significant effusions or pneumothorax. Mediastinum/alex: No pathologic lymphadenopathy. Small hiatal hernia. Pulmonary arteries/Aorta: No pulmonary embolism identified to the level of the segmental pulmonary arteries. Subsegmental pulmonary arteries cannot be evaluated due to motion artifact. No aortic aneurysm. Heart: No significant pericardial effusion. Normal heart size. Upper abdomen: No acute abnormality. Hepatic steatosis. Bones: No acute abnormality. IMPRESSION: No pulmonary embolus of the level of the segmental pulmonary arteries. Moderate widespread bilateral airspace disease concerning for multifocal pneumonia, including Covid-19. Liver ultrasound: COMPARISON: No comparisons FINDINGS: The liver demonstrates diffuse fatty infiltration.No focal liver lesion or intrahepatic biliary dilatation.No evidence of portal vein thrombosis. The spleen normal in size. IMPRESSION: Fatty liver. Follow up CXR: COMPARISON: October 26, October 25 TECHNIQUE: AP portable chest image was obtained 10/30/2020 5:38 am . FINDINGS: Lung volumes remain low. Lung volumes are reduced compared to the October 26 study. Bilateral interstitial and alveolar opacification remains. Left lung field shows a slight improvement though the differential is minimal. Right lung field opacification is not significantly different. The lower lung volume on the current study accentuates the opacification. Heart and vasculature are normal. No measurable pleural effusion and no pneumothorax. No acute bony abnormality seen. No acute aortic findings suspected. IMPRESSION: Bilateral COVID-19 pneumonia findings not substantially different from comparison studies. Physical Exam: General: Alert, In no apparent distress, Oriented x3 Respiratory: Breathing better. Currently on 65%HF. Cardiovascular: Regular rate/rhythm, Normal S1 S2, No murmurs Gastrointestinal: Normal bowel sounds, Soft and benign, Non-distended, No tenderness Musculoskeletal: No clubbing, No swelling, No tenderness Neurological: Normal speech, Normal tone Lymphatics: No axilla or inguinal lymphadenopathy Impression: Acute respiratory failure with hypoxia secondary to bilateral Covid pneumonia, unvaccinated Elevated liver function Leukocytosis Chronic pain Anxiety Obesity, BMI 42.0 Plan: Acute respiratory failure with hypoxia secondary to bilateral Covid pneumonia, unvaccinated: Patient reports improvement. Currently on 65% high flow. Patient clinically stable. Continue to wean off to maintain sats above 93%. Pulmonology decrease Solu-Medrol to prednisone. Encourage ambulation. Continue incentive spirometer, ambulation and proning. Will provide medication for pain. Anticipate continued improvement. Elevated liver function: Baricitinib has been discontinued. Liver function tests improved. Liver ultrasound shows fatty liver Leukocytosis: Patient no longer on antibiotic Chronic pain: Continue Elavil. Will provide tramadol. Anxiety: Will provide Ativan Obesity, BMI 42.0: Will address lifestyle modification education patient clinically stable. DVT prophylaxis: Eliquis CODE STATUS: Full code [facility] [id number] minutes: Home at discharge
--- NOTE | 2020-11-01 06:21 | P.PN ---
Subjective Date of Service: 11/01/20 Chief Complaint: resp failure Subjective: Improving (Patient slowly improving. Currently on 6 L.) Physical Examination - Vital Signs Temperature: 98.2 F Blood Pressure: 116/69 Pulse: 76 Respirations: 17 Pulse Ox (%): 92 - Studies Medications List Reviewed: Yes Assessment & Plan Discharge Plan: LTAC Plan to discharge in: 48 Hours Physician Review Additional Text: COVID: Positive CT Chest: COMPARISON: No comparisons FINDINGS: Chest Wall: No suspicious thyroid nodules or pathologic lymphadenopathy. Lungs: Moderate bilateral irregular airspace disease. Pleura: No significant effusions or pneumothorax. Mediastinum/alex: No pathologic lymphadenopathy. Small hiatal hernia. Pulmonary arteries/Aorta: No pulmonary embolism identified to the level of the segmental pulmonary arteries. Subsegmental pulmonary arteries cannot be evaluated due to motion artifact. No aortic aneurysm. Heart: No significant pericardial effusion. Normal heart size. Upper abdomen: No acute abnormality. Hepatic steatosis. Bones: No acute abnormality. IMPRESSION: No pulmonary embolus of the level of the segmental pulmonary arter ies. Moderate widespread bilateral airspace disease concerning for multifocal pneumonia, including Covid-19. Liver ultrasound: COMPARISON: No comparisons FINDINGS: The liver demonstrates diffuse fatty infiltration.No focal liver lesion or intrahepatic biliary dilatation.No evidence of portal vein thrombosis. The spleen normal in size. IMPRESSION: Fatty liver. Follow up CXR: COMPARISON: October 26, October 25 TECHNIQUE: AP portable chest image was obtained 10/30/2020 5:38 am . FINDINGS: Lung volumes remain low. Lung volumes are reduced compared to the October 26 study. Bilateral interstitial and alveolar opacification remains. Left lung field shows a slight improvement though the differential is minimal. Right lung field opacification is not significantly different. The lower lung volume on the current study accentuates the opacification. Heart and vasculature are normal. No measurable pleural effusion and no pneumothorax. No acute bony abnormality seen. No acute aortic findings suspected. IMPRESSION: Bilateral COVID-19 pneumonia findings not substantially different from comparison studies. Physical Exam: General: Alert, In no apparent distress, Oriented x3 Respiratory: Patient improved. Currently on 6 L per nasal cannula. Cardiovascular: Regular rate/rhythm, Normal S1 S2, No murmurs Gastrointestinal: Normal bowel sounds, Soft and benign, Non-distended, No tenderness Musculoskeletal: No clubbing, No swelling, No tenderness Neurological: Normal speech, Normal tone Lymphatics: No axilla or inguinal lymphadenopathy Impression: Acute respiratory failure with hypoxia secondary to bilateral Covid pneumonia, unvaccinated Elevated liver function with fatty liver Leukocytosis Chronic pain Anxiety Obesity, BMI 42.0 Plan: Acute respiratory failure with hypoxia secondary to bilateral Covid pneumonia, unvaccinated: Slow improvement noted. Patient remains on 6 L per nasal cannula. Blood pressure low this morning. Will provide 500 cc bolus. Will monitor blood pressure closely. Continue to wean off oxygen to maintain sats above 93%. Patient currently on prednisone. CRP and ferritin improved. Continue incentive spirometer, ambulation and proning. Will pursue long-term acute care facility placement for rehab continue treatment. Patient appears to be in agreement. Will order physical therapy and Occupational Therapy. Continue to monitor closely. Elevated liver function with fatty liver: Baricitinib has been discontinued. Liver function tests slowly improving. Liver ultrasound shows fatty liver Leukocytosis: Patient no longer on antibiotic Chronic pain: Continue Elavil. Will provide tramadol as needed. Anxiety: Continue with Ativan as needed Obesity, BMI 42.0: Will address lifestyle modification education patient clinically stable. DVT prophylaxis: Eliquis CODE STATUS: Full code [facility] [id number] minutes: Home at discharge Time Spent Managing Pts Care (In Minutes): 55
[2020-11-01] MEDS: VITAMIN D 1000 UNIT TAB PO SCH (07:53)
[2020-11-01] MEDS: predniSONE 20 MG TAB PO SCH ×2 (07:54→20:49)
[2020-11-01] MEDS: ZINC SULFATE 220 MG CAP PO SCH (07:54)
[2020-11-01] MEDS: THIAMINE HCL 100 MG TABLET PO SCH ×2 (07:54→20:49)
[2020-11-01] MEDS: ASPIRIN EC 81 MG TAB PO SCH (07:54)
[2020-11-01] MEDS: ASCORBIC ACID 500 MG TABLET PO SCH ×4 (07:54→20:49)
[2020-11-01] MEDS: APIXABAN 2.5 MG TABLET PO SCH ×2 (07:54→20:49)
[2020-11-01] MEDS: FAMOTIDINE 20 MG TAB PO SCH ×2 (13:54→20:49)
[2020-11-01] MEDS ORDERED: NA CHLORIDE 0.9% 500 ML IV ONE (14:41)
[2020-11-01] MEDS: MELATONIN 5 MG TABLET PO PRN (20:48)
[2020-11-01] MEDS: AMITRIPTYLINE 10 MG TAB PO SCH (20:49)
[2020-11-02 03:49] LABS: Absolute Lymphocytes (CBC) 0.9 K/uL (0.7-4.9); Basophils % 0.2 % (0-1.3); Lymphocytes % 7.1 % (15.3-44.8); MPV 7.9 fL (7.6-11.3); RBC Red Blood Cell Count 4.76 M/uL (3.86-4.86)
[2020-11-02 04:42] LABS: AST/SGOT 57 U/L (15-37); Albumin 2.8 g/dL (3.4-5.0); Alkaline Phosphatase 58 U/L (45-117); BUN Blood Urea Nitrogen 22 mg/dL (7-18); Bicarbonate 30 mmol/L (21-32); Bilirubin Total 0.5 mg/dL (0.2-1.0); C-Reactive Protein 3.99 mg/L (<3.00); Ferritin 310.1 ng/mL (8-388); Glucose Level 112 mg/dL (74-106); Magnesium 2.4 mg/dL (1.8-2.4); Potassium 4.8 mmol/L (3.5-5.1); Protein, Total 6.3 g/dL (6.4-8.2); Sodium Level 141 mmol/L (136-145)
[2020-11-02 04:46] LABS: ALT/SGPT 438 U/L (12-78)
--- NOTE | 2020-11-02 06:07 | P.PN ---
Subjective Date of Service: 11/02/20 Chief Complaint: resp failure Subjective: Other (Patient reports improvement. Currently on high flow) Physical Examination - Vital Signs Temperature: 97.1 F Blood Pressure: 117/57 Pulse: 92 Respirations: 20 Pulse Ox (%): 89 - Studies Medications List Reviewed: Yes Assessment & Plan Discharge Plan: LTAC Plan to discharge in: 48 Hours Physician Review Additional Text: COVID: Positive CT Chest: COMPARISON: No comparisons FINDINGS: Chest Wall: No suspicious thyroid nodules or pathologic lymphadenopathy. Lungs: Moderate bilateral irregular airspace disease. Pleura: No significant effusions or pneumothorax. Mediastinum/alex: No pathologic lymphadenopathy. Small hiatal hernia. Pulmonary arteries/Aorta: No pulmonary embolism identified to the level of the segmental pulmonary arteries. Subsegmental pulmonary arteries cannot be evaluated due to motion artifact. No aortic aneurysm. Heart: No significant pericardial effusion. Normal heart size. Upper abdomen: No acute abnormality. Hepatic steatosis. Bones: No acute abnormality. IMPRESSION: No pulmonary embolus of the level of the segmental pulmonary a rteries. Moderate widespread bilateral airspace disease concerning for multifocal pneumonia, including Covid-19. Liver ultrasound: COMPARISON: No comparisons FINDINGS: The liver demonstrates diffuse fatty infiltration.No focal liver lesion or intrahepatic biliary dilatation.No evidence of portal vein thrombosis. The spleen normal in size. IMPRESSION: Fatty liver. Follow up CXR: COMPARISON: October 26, October 25 TECHNIQUE: AP portable chest image was obtained 10/30/2020 5:38 am . FINDINGS: Lung volumes remain low. Lung volumes are reduced compared to the October 26 study. Bilateral interstitial and alveolar opacification remains. Left lung field shows a slight improvement though the differential is minimal. Right lung field opacification is not significantly different. The lower lung volume on the current study accentuates the opacification. Heart and vasculature are normal. No measurable pleural effusion and no pneumothorax. No acute bony abnormality seen. No acute aortic findings suspected. IMPRESSION: Bilateral COVID-19 pneumonia findings not substantially different from comparison studies. Physical Exam: General: Alert, In no apparent distress, Oriented x3 Respiratory: Patient improved. Currently on high flow 100% Cardiovascular: Regular rate/rhythm, Normal S1 S2, No murmurs Gastrointestinal: Normal bowel sounds, Soft and benign, Non-distended, No tenderness Musculoskeletal: No clubbing, No swelling, No tenderness Neurological: Normal speech, Normal tone Lymphatics: No axilla or inguinal lymphadenopathy Impression: Acute respiratory failure with hypoxia secondary to bilateral Covid pneumonia, unvaccinated Elevated liver function with fatty liver Leukocytosis Chronic pain Anxiety Obesity, BMI 42.0 Plan: Acute respiratory failure with hypoxia secondary to bilateral Covid pneumonia, unvaccinated: Slow improvement noted. Currently on high flow at 100%. Continue to wean off oxygen to maintain sats above 93%. Patient currently on prednisone. CRP and ferritin improved. Continue incentive spirometer, ambulation and proning. Continue to pursue long-term acute care facility placement for rehab continue treatment. Patient appears to be in agreement. Continue physical therapy and Occupational Therapy. Continue to monitor closely. Elevated liver function with fatty liver: Baricitinib has been discontinued. Liver function tests slowly improving. Liver ultrasound shows fatty liver Leukocytosis: Patient no longer on antibiotic Chronic pain: Continue Elavil. Will provide tramadol as needed. Anxiety: Continue with Ativan as needed Obesity, BMI 42.0: Will address lifestyle modification education patient clinically stable. DVT prophylaxis: Eliquis CODE STATUS: Full code [facility] [id number] minutes: LTAC Time Spent Managing Pts Care (In Minutes): 55
[2020-11-02] MEDS: ZINC SULFATE 220 MG CAP PO SCH (09:18)
[2020-11-02] MEDS: FAMOTIDINE 20 MG TAB PO SCH ×2 (09:18→20:53)
[2020-11-02] MEDS: APIXABAN 2.5 MG TABLET PO SCH ×2 (09:18→20:54)
[2020-11-02] MEDS: ASPIRIN EC 81 MG TAB PO SCH (09:18)
[2020-11-02] MEDS: predniSONE 20 MG TAB PO SCH ×2 (09:18→20:53)
[2020-11-02] MEDS: THIAMINE HCL 100 MG TABLET PO SCH ×2 (09:18→20:53)
[2020-11-02] MEDS: ASCORBIC ACID 500 MG TABLET PO SCH ×4 (09:18→20:54)
[2020-11-02] MEDS: VITAMIN D 1000 UNIT TAB PO SCH (12:29)
[2020-11-02] MEDS: AMITRIPTYLINE 10 MG TAB PO SCH (20:53)
[2020-11-03 04:26] LABS: Basophils % 0.3 % (0-1.3); Hematocrit 41.3 % (36.0-45.0); Lymphocytes % 7.8 % (15.3-44.8); MPV 7.9 fL (7.6-11.3); RBC Red Blood Cell Count 4.66 M/uL (3.86-4.86)
[2020-11-03 04:48] LABS: AST/SGOT 49 U/L (15-37); Albumin 2.8 g/dL (3.4-5.0); Alkaline Phosphatase 56 U/L (45-117); BUN Blood Urea Nitrogen 21 mg/dL (7-18); Bicarbonate 31 mmol/L (21-32); Bilirubin Total 0.5 mg/dL (0.2-1.0); C-Reactive Protein 3.13 mg/L (<3.00); Glucose Level 115 mg/dL (74-106); Magnesium 2.4 mg/dL (1.8-2.4); Potassium 4.4 mmol/L (3.5-5.1); Protein, Total 6.3 g/dL (6.4-8.2); Sodium Level 139 mmol/L (136-145)
[2020-11-03 04:49] LABS: ALT/SGPT 392 U/L (12-78)
[2020-11-03 05:09] LABS: Blood Morphology Comment NOT SEEN (NOT SEEN); Platelet Estimate ADEQ
--- NOTE | 2020-11-03 06:10 | P.PN ---
Subjective Date of Service: 11/03/20 Chief Complaint: resp failure Subjective: Other (Currently stable) Physical Examination - Vital Signs Temperature: 98.2 F Blood Pressure: 114/75 Pulse: 86 Respirations: 20 Pulse Ox (%): 94 - Studies Medications List Reviewed: Yes Assessment & Plan Discharge Plan: LTAC Plan to discharge in: 48 Hours Physician Review Additional Text: COVID: Positive CT Chest: COMPARISON: No comparisons FINDINGS: Chest Wall: No suspicious thyroid nodules or pathologic lymphadenopathy. Lungs: Moderate bilateral irregular airspace disease. Pleura: No significant effusions or pneumothorax. Mediastinum/alex: No pathologic lymphadenopathy. Small hiatal hernia. Pulmonary arteries/Aorta: No pulmonary embolism identified to the level of the segmental pulmonary arteries. Subsegmental pulmonary arteries cannot be evaluated due to motion artifact. No aortic aneurysm. Heart: No significant pericardial effusion. Normal heart size. Upper abdomen: No acute abnormality. Hepatic steatosis. Bones: No acute abnormality. IMPRESSION: No pulmonary embolus of the level of the segmental pulmonary arteries. Moderate widespread bilateral airspace disease concerning for multifocal pneumonia, including Covid-19. Liver ultrasound: COMPARISON: No comparisons FINDINGS: The liver demonstrates diffuse fatty infiltration.No focal liver lesion or intrahepatic biliary dilatation.No evidence of portal vein thrombosis. The spleen normal in size. IMPRESSION: Fatty liver. Follow up CXR: COMPARISON: October 26, October 25 TECHNIQUE: AP portable chest image was obtained 10/30/2020 5:38 am . FINDINGS: Lung volumes remain low. Lung volumes are reduced compared to the October 26 study. Bilateral interstitial and alveolar opacification remains. Left lung field shows a slight improvement though the differential is minimal. Right lung field opacification is not significantly different. The lower lung volume on the current study accentuates the opacification. Heart and vasculature are normal. No measurable pleural effusion and no pneumothorax. No acute bony abnormality seen. No acute aortic findings suspected. IMPRESSION: Bilateral COVID-19 pneumonia findings not substantially different from comparison studies. Physical Exam: General: Alert, In no apparent distress, Oriented x3 Respiratory: Patient improved. Currently on high flow but down to 80% Cardiovascular: Regular rate/rhythm, Normal S1 S2, No murmurs Gastrointestinal: Normal bowel sounds, Soft and benign, Non-distended, No tenderness Musculoskeletal: No clubbing, No swelling, No tenderness Neurological: Normal speech, Normal tone Lymphatics: No axilla or inguinal lymphadenopathy Impression: Acute respiratory failure with hypoxia secondary to bilateral Covid pneumonia, unvaccinated Elevated liver function with fatty liver Leukocytosis Chronic pain Anxiety Obesity, BMI 42.0 Plan: Acute respiratory failure with hypoxia secondary to bilateral Covid pneumonia, unvaccinated: Slow improvement noted. Down to high flow at 80%. Continue to wean off oxygen to maintain sats above 93%. Patient currently on prednisone. CRP and ferritin improved. Continue incentive spirometer, ambulation and pr oning. Continue to pursue long-term acute care facility placement for rehab continue treatment. Patient appears to be in agreement. Continue physical therapy and Occupational Therapy. Continue to monitor closely. Elevated liver function with fatty liver: Baricitinib has been discontinued. Liver function tests slowly improving. Liver ultrasound shows fatty liver Leukocytosis: Patient no longer on antibiotic Chronic pain: Continue Elavil. Will provide tramadol as needed. Anxiety: Continue with Ativan as needed Obesity, BMI 42.0: Will address lifestyle modification education patient clinically stable. DVT prophylaxis: Eliquis CODE STATUS: Full code [facility] [id number] minutes: LTAC Time Spent Managing Pts Care (In Minutes): 55
--- NOTE | 2020-11-03 07:46 | RAD REPORT ---
EXAM DESCRIPTION: RAD - Chest Single View - 11/03/2020 5:05 am CLINICAL HISTORY: Follow-up Covid COMPARISON: Chest Single View dated 10/30/2020; Chest Single View dated 10/26/2020; Chest Single View dated 10/25/2020; Chest Single View dated 10/23/2020 FINDINGS: The lung volumes have decreased since 10/30/2020 but there are otherwise similar widesprea d airspace opacities. The heart size is within normal limits.No acute osseous abnormality. No signifi cant pleural effusions or pneumothorax. IMPRESSION: Decreased lung volumes with similar widespread bilateral airspace disease consistent wit h multifocal pneumonia.
[2020-11-03] MEDS: ASPIRIN EC 81 MG TAB PO SCH (08:35)
[2020-11-03] MEDS: THIAMINE HCL 100 MG TABLET PO SCH ×2 (08:35→20:09)
[2020-11-03] MEDS: predniSONE 20 MG TAB PO SCH ×2 (08:35→20:09)
[2020-11-03] MEDS: ZINC SULFATE 220 MG CAP PO SCH (08:35)
[2020-11-03] MEDS: ASCORBIC ACID 500 MG TABLET PO SCH ×4 (08:35→20:09)
[2020-11-03] MEDS: FAMOTIDINE 20 MG TAB PO SCH ×2 (08:35→20:09)
[2020-11-03] MEDS: VITAMIN D 1000 UNIT TAB PO SCH (08:35)
[2020-11-03] MEDS: APIXABAN 2.5 MG TABLET PO SCH ×2 (08:35→20:09)
[2020-11-03] MEDS: AMITRIPTYLINE 10 MG TAB PO SCH (20:09)
[2020-11-03] MEDS: MELATONIN 5 MG TABLET PO PRN (20:09)
[2020-11-04 03:55] LABS: Absolute Lymphocytes (CBC) 0.9 K/uL (0.7-4.9); Basophils % 0.1 % (0-1.3); Hematocrit 41.5 % (36.0-45.0); Lymphocytes % 7.9 % (15.3-44.8); MPV 7.7 fL (7.6-11.3)
[2020-11-04 05:18] LABS: AST/SGOT 43 U/L (15-37); Albumin 2.8 g/dL (3.4-5.0); Alkaline Phosphatase 56 U/L (45-117); BUN Blood Urea Nitrogen 21 mg/dL (7-18); Bicarbonate 31 mmol/L (21-32); Bilirubin Total 0.5 mg/dL (0.2-1.0); Glucose Level 122 mg/dL (74-106); Magnesium 2.3 mg/dL (1.8-2.4); Potassium 4.8 mmol/L (3.5-5.1); Protein, Total 6.2 g/dL (6.4-8.2); Sodium Level 140 mmol/L (136-145)
[2020-11-04 05:26] LABS: C-Reactive Protein < 2.90 mg/L (<3.00)
[2020-11-04 05:27] LABS: ALT/SGPT 343 U/L (12-78)
--- NOTE | 2020-11-04 06:15 | P.PN ---
Subjective Date of Service: 11/04/20 Chief Complaint: resp failure Subjective: Other (Patient improved. Now down to high flow at 80%) Physical Examination - Vital Signs Temperature: 97.2 F Blood Pressure: 118/69 Pulse: 73 Respirations: 18 Pulse Ox (%): 94 - Studies Medications List Reviewed: Yes Assessment & Plan Discharge Plan: LTAC Plan to discharge in: 48 Hours Physician Review Additional Text: COVID: Positive CT Chest: COMPARISON: No comparisons FINDINGS: Chest Wall: No suspicious thyroid nodules or pathologic lymphadenopathy. Lungs: Moderate bilateral irregular airspace disease. Pleura: No significant effusions or pneumothorax. Mediastinum/alex: No pathologic lymphadenopathy. Small hiatal hernia. Pulmonary arteries/Aorta: No pulmonary embolism identified to the level of the segmental pulmonary arteries. Subsegmental pulmonary arteries cannot be evaluated due to motion artifact. No aortic aneurysm. Heart: No significant pericardial effusion. Normal heart size. Upper abdomen: No acute abnormality. Hepatic steatosis. Bones: No acute abnormality. IMPRESSION: No pulmonary embolus of the level of the segmental pulmonary arteri es. Moderate widespread bilateral airspace disease concerning for multifocal pneumonia, including Covid-19. Liver ultrasound: COMPARISON: No comparisons FINDINGS: The liver demonstrates diffuse fatty infiltration.No focal liver lesion or intrahepatic biliary dilatation.No evidence of portal vein thrombosis. The spleen normal in size. IMPRESSION: Fatty liver. Follow up CXR: COMPARISON: October 26, October 25 TECHNIQUE: AP portable chest image was obtained 10/30/2020 5:38 am . FINDINGS: Lung volumes remain low. Lung volumes are reduced compared to the October 26 study. Bilateral interstitial and alveolar opacification remains. Left lung field shows a slight improvement though the differential is minimal. Right lung field opacification is not significantly different. The lower lung volume on the current study accentuates the opacification. Heart and vasculature are normal. No measurable pleural effusion and no pneumothorax. No acute bony abnormality seen. No acute aortic findings suspected. IMPRESSION: Bilateral COVID-19 pneumonia findings not substantially different from comparison studies. Physical Exam: General: Alert, In no apparent distress, Oriented x3 Respiratory: Patient improved. Currently on high flow but down to 80% Cardiovascular: Regular rate/rhythm, Normal S1 S2, No murmurs Gastrointestinal: Normal bowel sounds, Soft and benign, Non-distended, No tenderness Musculoskeletal: No clubbing, No swelling, No tenderness Neurological: Normal speech, Normal tone Lymphatics: No axilla or inguinal lymphadenopathy Impression: Acute respiratory failure with hypoxia secondary to bilateral Covid pneumonia, unvaccinated Elevated liver function with fatty liver Leukocytosis Chronic pain Anxiety Obesity, BMI 42.0 Plan: Acute respiratory failure with hypoxia secondary to bilateral Covid pneumonia, unvaccinated: Patient down to 80% high flow. Currently stable. Continue to wean off oxygen to maintain sats above 93%. Pulmonology recommends IV Solu-Medrol. CRP and ferritin improved. Continue incentive spirometer, ambulation and proning. Continue to pursue long-term acute care facility placement for rehab continue treatment. Patient appears to be in agreement. Continue physical therapy and Occupational Therapy. Continue to monitor closely. Elevated liver function with fatty liver: Baricitinib has been discontinued. Liver function tests slowly improving. Liver ultrasound shows fatty liver Leukocytosis: Patient no longer on antibiotic Chronic pain: Continue Elavil. Will provide tramadol as needed. Anxiety: Continue with Ativan as needed Obesity, BMI 42.0: Will address lifestyle modification education patient clinically stable. DVT prophylaxis: Eliquis CODE STATUS: Full code [facility] [id number] minutes: LTAC Time Spent Managing Pts Care (In Minutes): 55
[2020-11-04] MEDS: ASCORBIC ACID 500 MG TABLET PO SCH ×4 (08:39→22:04)
[2020-11-04] MEDS: ASPIRIN EC 81 MG TAB PO SCH (08:39)
[2020-11-04] MEDS: APIXABAN 2.5 MG TABLET PO SCH ×2 (08:39→22:04)
[2020-11-04] MEDS: predniSONE 20 MG TAB PO SCH (08:39)
[2020-11-04] MEDS: VITAMIN D 1000 UNIT TAB PO SCH (08:39)
[2020-11-04] MEDS: FAMOTIDINE 20 MG TAB PO SCH ×2 (08:39→22:04)
[2020-11-04] MEDS: ZINC SULFATE 220 MG CAP PO SCH (08:39)
[2020-11-04] MEDS: THIAMINE HCL 100 MG TABLET PO SCH ×2 (08:40→22:04)
--- NOTE | 2020-11-04 14:06 | P.PN ---
Subjective Date of Service: 11/04/20 Chief Complaint: resp failure Feeling better still on high Conc of Fio2 Review of Systems General: Weakness Respiratory: Shortness of Breath Physical Examination - Vital Signs Temperature: 96.7 F Blood Pressure: 113/76 Pulse: 105 Respirations: 24 Pulse Ox (%): 96 - Physical Exam General: In no apparent distress, Oriented x3 - Studies Medications List Reviewed: Yes Assessment & Plan - Problems (Diagnosis) (1) Pneumonia due to 2019 novel coronavirus Current Visit: Yes Status: Acute Plan: Feeling better high conc of Fio2/ increase steroids/labs rev Physician Review: Patient Assessed, Agree with Above Assessment and Plan
[2020-11-04] MEDS: METHYLPREDNISOLONE 125 MG INJ IV SCH ×2 (15:07→22:04)
[2020-11-04] MEDS: AMITRIPTYLINE 10 MG TAB PO SCH (22:05)
[2020-11-05 04:25] LABS: Absolute Lymphocytes (CBC) 0.5 K/uL (0.7-4.9); Basophils % 0.2 % (0-1.3); Hematocrit 41.1 % (36.0-45.0); Lymphocytes % 4.7 % (15.3-44.8); MPV 8.1 fL (7.6-11.3); RBC Red Blood Cell Count 4.65 M/uL (3.86-4.86)
[2020-11-05 04:55] LABS: ALT/SGPT 323 U/L (12-78); AST/SGOT 41 U/L (15-37); Alkaline Phosphatase 55 U/L (45-117); BUN Blood Urea Nitrogen 21 mg/dL (7-18); Bicarbonate 28 mmol/L (21-32); Bilirubin Total 0.6 mg/dL (0.2-1.0); C-Reactive Protein < 2.90 mg/L (<3.00); Ferritin 291.6 ng/mL (8-388); Glucose Level 126 mg/dL (74-106); Magnesium 2.3 mg/dL (1.8-2.4); Potassium 4.2 mmol/L (3.5-5.1); Protein, Total 6.5 g/dL (6.4-8.2); Sodium Level 139 mmol/L (136-145)
--- NOTE | 2020-11-05 06:20 | P.PN ---
Subjective Date of Service: 11/05/20 Chief Complaint: resp failure Subjective: Improving (Down to 75% high flow) Physical Examination - Vital Signs Temperature: 97.7 F Blood Pressure: 130/58 Pulse: 79 Respirations: 18 Pulse Ox (%): 92 - Studies Medications List Reviewed: Yes Assessment & Plan Discharge Plan: LTAC Plan to discharge in: 48 Hours Physician Review Additional Text: COVID: Positive CT Chest: COMPARISON: No comparisons FINDINGS: Chest Wall: No suspicious thyroid nodules or pathologic lymphadenopathy. Lungs: Moderate bilateral irregular airspace disease. Pleura: No significant effusions or pneumothorax. Mediastinum/alex: No pathologic lymphadenopathy. Small hiatal hernia. Pulmonary arteries/Aorta: No pulmonary embolism identified to the level of the segmental pulmonary arteries. Subsegmental pulmonary arteries cannot be evaluated due to motion artifact. No aortic aneurysm. Heart: No significant pericardial effusion. Normal heart size. Upper abdomen: No acute abnormality. Hepatic steatosis. Bones: No acute abnormality. IMPRESSION: No pulmonary embolus of the level of the segmental pulmonary arteries. Moderate widespread bilateral airspace disease concerning for multifocal pneumonia, including Covid-19. Liver ultrasound: COMPARISON: No comparisons FINDINGS: The liver demonstrates diffuse fatty infiltration.No focal liver lesion or intrahepatic biliary dilatation.No evidence of portal vein thrombosis. The spleen normal in size. IMPRESSION: Fatty liver. Follow up CXR 11/05/2020: FINDINGS: Lung volumes are low. Bilateral interstitial and alveolar pneumonia findings are present. Right lung field is not substantially different. Improved aeration seen in the left lung field. Trachea remains midline. Prominent but stable cardiomediastinal silhouette. No measurable pleural effusion and no pneumothorax. No acute bony abnormality seen. No acute aortic findings suspected. IMPRESSION: Moderate improvement in the left lung field pneumonia pattern. Stable mild right pneumonia pattern. Physical Exam: General: Alert, In no apparent distress, Oriented x3 Respiratory: Patient improved. Down to 75% high flow Cardiovascular: Regular rate/rhythm, Normal S1 S2, No murmurs Gastrointestinal: Normal bowel sounds, Soft and benign, Non-distended, No tenderness Musculoskeletal: No clubbing, No swelling, No tenderness Neurological: Normal speech, Normal tone Lymphatics: No axilla or inguinal lymphadenopathy Impression: Acute respiratory failure with hypoxia secondary to bilateral Covid pneumonia, unvaccinated Elevated liver function with fatty liver Leukocytosis Chronic pain Anxiety Obesity, BMI 42.0 Plan: Acute respiratory failure with hypoxia secondary to bilateral Covid pneumonia, unvaccinated: Patient continues to improve. Down to 75% high flow. Currently stable. Continue to wean off oxygen to maintain sats above 93%. Continue IV Solu-Medrol. CRP and ferritin improved. Continue incentive spirometer, ambulation and proning. Continue to pursue long-term acute care facility placement for rehab continue treatment. Patient appears to be in agreement. Continue physical therapy and Occupational Therapy. Continue to monitor clos miroslava. I will turn the service over to the hospitalist team tomorrow. I will go plan of care with him. Elevated liver function with fatty liver: Baricitinib has been discontinued. Liver function tests slowly improving. Liver ultrasound shows fatty liver Leukocytosis: Patient no longer on antibiotic Chronic pain: Continue Elavil. Will provide tramadol as needed. Anxiety: Continue with Ativan as needed Obesity, BMI 42.0: Will address lifestyle modification education patient clinically stable. DVT prophylaxis: Eliquis CODE STATUS: Full code Advance care [id number] minutes: LTAC Time Spent Managing Pts Care (In Minutes): 55
--- NOTE | 2020-11-05 07:36 | RAD REPORT ---
EXAM DESCRIPTION: RAD - Chest Single View - 11/05/2020 5:13 am CLINICAL HISTORY: Follow-up Covidpneumonia COMPARISON: November 03 TECHNIQUE: AP portable chest image was obtained 11/05/2020 5:13 am . FINDINGS: Lung volumes are low. Bilateral interstitial and alveolar pneumonia findings are present. Right lung field is not substantially different. Improved aeration seen in the left lung field. Trach ea remains midline. Prominent but stable cardiomediastinal silhouette. No measurable pleural effusion and no pneumothorax. No acute bony abnormality seen. No acute aortic findings suspected. IMPRESSION: Moderate improvement in the left lung field pneumonia pattern. Stable mild right pneumonia pattern.
[2020-11-05] MEDS: VITAMIN D 1000 UNIT TAB PO SCH (09:35)
[2020-11-05] MEDS: ASCORBIC ACID 500 MG TABLET PO SCH ×4 (09:35→19:16)
[2020-11-05] MEDS: METHYLPREDNISOLONE 125 MG INJ IV SCH ×2 (09:35→19:17)
[2020-11-05] MEDS: APIXABAN 2.5 MG TABLET PO SCH ×2 (09:35→19:16)
[2020-11-05] MEDS: FAMOTIDINE 20 MG TAB PO SCH ×2 (09:35→19:16)
[2020-11-05] MEDS: THIAMINE HCL 100 MG TABLET PO SCH ×2 (09:35→19:16)
[2020-11-05] MEDS: ZINC SULFATE 220 MG CAP PO SCH (09:36)
[2020-11-05] MEDS: ASPIRIN EC 81 MG TAB PO SCH (12:35)
[2020-11-05] MEDS: AMITRIPTYLINE 10 MG TAB PO SCH (19:16)
[2020-11-06 04:38] LABS: Absolute Lymphocytes (CBC) 0.7 K/uL (0.7-4.9); Basophils % 0.2 % (0-1.3); Hematocrit 40.3 % (36.0-45.0); Lymphocytes % 5.2 % (15.3-44.8); MPV 8.3 fL (7.6-11.3); RBC Red Blood Cell Count 4.56 M/uL (3.86-4.86)
[2020-11-06 05:19] LABS: ALT/SGPT 290 U/L (12-78); AST/SGOT 38 U/L (15-37); Albumin 2.9 g/dL (3.4-5.0); Alkaline Phosphatase 53 U/L (45-117); BUN Blood Urea Nitrogen 20 mg/dL (7-18); Bicarbonate 29 mmol/L (21-32); Bilirubin Total 0.5 mg/dL (0.2-1.0); Glucose Level 118 mg/dL (74-106); Magnesium 2.4 mg/dL (1.8-2.4); Potassium 4.4 mmol/L (3.5-5.1); Protein, Total 6.1 g/dL (6.4-8.2); Sodium Level 140 mmol/L (136-145)
[2020-11-06 05:24] LABS: C-Reactive Protein < 2.90 mg/L (<3.00)
[2020-11-06 07:29] LABS: Ferritin 269.2 ng/mL (8-388)
[2020-11-06 09:57] VITALS: BMI 41.4
[2020-11-06] MEDS: VITAMIN D 1000 UNIT TAB PO SCH (10:20)
[2020-11-06] MEDS: ASPIRIN EC 81 MG TAB PO SCH (10:20)
[2020-11-06] MEDS: THIAMINE HCL 100 MG TABLET PO SCH ×2 (10:21→19:27)
[2020-11-06] MEDS: METHYLPREDNISOLONE 125 MG INJ IV SCH ×2 (10:21→19:28)
[2020-11-06] MEDS: ZINC SULFATE 220 MG CAP PO SCH (10:21)
[2020-11-06] MEDS: APIXABAN 2.5 MG TABLET PO SCH ×2 (10:21→19:27)
[2020-11-06] MEDS: FAMOTIDINE 20 MG TAB PO SCH ×2 (10:21→19:28)
[2020-11-06] MEDS: ASCORBIC ACID 500 MG TABLET PO SCH ×4 (10:21→19:27)
--- NOTE | 2020-11-06 16:21 | P.PN ---
Date of Service: 11/06/20 Subjective Patient doing well with no new complaints Review of Systems 10-point ROS is otherwise unremarkable Physical Examination - Vital Signs reviewed - Physical Exam General: Alert, In no apparent distress, Oriented x3; continue on BiPAP support Respiratory: Clear to auscultation bilaterally, Normal air movement Cardiovascular: Regular rate/rhythm, Normal S1 S2, No murmurs Gastrointestinal: Normal bowel sounds, Soft and benign, Non-distended, No tenderness Musculoskeletal: No clubbing, No swelling, No tenderness Assessment & Plan - Problems (Diagnosis) (1) Pneumonia due to 2019 novel coronavirus Current Visit: Yes Status: Acute - Plan Continue with plan of care as mentioned below: 1. Continue with IV steroids; can probably wean down to oral steroids 2. May repeated chest x-ray over the next 24-48 hr 3. Patient currently on high-flow at 90%. Cut her down to 85% and she is maintaining her sats really well. We can probably start trying to aggressively get her weaned down
[2020-11-06] MEDS: AMITRIPTYLINE 10 MG TAB PO SCH (19:28)
[2020-11-07] MEDS: METHYLPREDNISOLONE 125 MG INJ IV SCH ×2 (09:42→20:40)
[2020-11-07] MEDS: VITAMIN D 1000 UNIT TAB PO SCH (09:42)
[2020-11-07] MEDS: ASPIRIN EC 81 MG TAB PO SCH (09:42)
[2020-11-07] MEDS: ASCORBIC ACID 500 MG TABLET PO SCH ×4 (09:42→20:40)
[2020-11-07] MEDS: ZINC SULFATE 220 MG CAP PO SCH (09:43)
[2020-11-07] MEDS: THIAMINE HCL 100 MG TABLET PO SCH ×2 (09:43→20:40)
[2020-11-07] MEDS: APIXABAN 2.5 MG TABLET PO SCH ×2 (09:43→20:41)
[2020-11-07] MEDS: FAMOTIDINE 20 MG TAB PO SCH ×2 (10:59→20:40)
[2020-11-07] MEDS: AMITRIPTYLINE 10 MG TAB PO SCH (20:40)
[2020-11-08] MEDS: APIXABAN 2.5 MG TABLET PO SCH ×2 (08:03→19:24)
[2020-11-08] MEDS: METHYLPREDNISOLONE 125 MG INJ IV SCH ×2 (08:03→19:25)
[2020-11-08] MEDS: FAMOTIDINE 20 MG TAB PO SCH ×2 (08:03→19:24)
[2020-11-08] MEDS: ASPIRIN EC 81 MG TAB PO SCH (08:04)
[2020-11-08] MEDS: ZINC SULFATE 220 MG CAP PO SCH (08:04)
[2020-11-08] MEDS: VITAMIN D 1000 UNIT TAB PO SCH (08:04)
[2020-11-08] MEDS: THIAMINE HCL 100 MG TABLET PO SCH ×2 (08:05→19:24)
[2020-11-08] MEDS: ASCORBIC ACID 500 MG TABLET PO SCH ×4 (08:05→19:23)
--- NOTE | 2020-11-08 10:29 | P.PN ---
Date of Service: 11/07/20 Subjective Patient clinically doing well with no new complaints. Patient is much improved. Weaning her down to 4 L oxygen. Review of Systems 10-point ROS is otherwise unremarkable Physical Examination - Vital Signs reviewed - Physical Exam General: Alert, In no apparent distress, Oriented x3; continue on BiPAP support Respiratory: Clear to auscultation bilaterally, Normal air movement Cardiovascular: Regular rate/rhythm, Normal S1 S2, No murmurs Gastrointestinal: Normal bowel sounds, Soft and benign, Non-distended, No tenderness Musculoskeletal: No clubbing, No swelling, No tenderness Assessment & Plan - Problems (Diagnosis) (1) Pneumonia due to 2019 novel coronavirus Current Visit: Yes Status: Acute - Plan Continue with plan of care as mentioned below: 1. Wean IV steroids in wean oxygen. Arrange for home oxygen. Start physical therapy. Were going to try to get patient home over the next 48-72 hr. 2. Patient will need outpatient physical therapy. Patient does not have any finances so may need to keep her in the hospital for a day or 2 extra to try to keep her strength built up. May try did get [facility] as well.
--- NOTE | 2020-11-08 10:29 | P.PN ---
Date of Service: 11/08/20 Subjective Patient continues to improve. Review of Systems 10-point ROS is otherwise unremarkable Physical Examination - Vital Signs reviewed - Physical Exam General: Alert, In no apparent distress, Oriented x3; continues on 6-8 L Respiratory: Clear to auscultation bilaterally, Normal air movement Cardiovascular: Regular rate/rhythm, Normal S1 S2, No murmurs Gastrointestinal: Normal bowel sounds, Soft and benign, Non-distended, No tenderness Musculoskeletal: No clubbing, No swelling, No tenderness Assessment & Plan - Problems (Diagnosis) (1) Pneumonia due to 2019 novel coronavirus Current Visit: Yes Status: Acute - Plan Continue with plan of care as mentioned below: 1. Wean IV steroids in wean oxygen. Arrange for home oxygen. Start physical t herapy. Out of bed and ambulate and build her strength up 2. Patient will need outpatient physical therapy. Case management for discharge planning
[2020-11-08] MEDS: AMITRIPTYLINE 10 MG TAB PO SCH (19:23)
[2020-11-08] MEDS: ACETAMINOPHEN 500 MG TAB PO PRN (23:50)
[2020-11-09 04:19] LABS: Absolute Lymphocytes (CBC) 0.8 K/uL (0.7-4.9); Basophils % 0.1 % (0-1.3); Lymphocytes % 8.2 % (15.3-44.8); MPV 7.9 fL (7.6-11.3); RBC Red Blood Cell Count 4.68 M/uL (3.86-4.86)
[2020-11-09 04:44] LABS: BUN Blood Urea Nitrogen 24 mg/dL (7-18); Bicarbonate 30 mmol/L (21-32); Ferritin 198.2 ng/mL (8-388); Glucose Level 128 mg/dL (74-106); Magnesium 2.5 mg/dL (1.8-2.4); NT PRO-BNP 29 pg/mL (<125); Potassium 4.8 mmol/L (3.5-5.1); Sodium Level 140 mmol/L (136-145)
[2020-11-09 04:45] LABS: C-Reactive Protein < 2.90 mg/L (<3.00)
[2020-11-09 04:53] LABS: Blood Morphology Comment NOT SEEN (NOT SEEN); Platelet Estimate ADEQ
[2020-11-09] MEDS: ZINC SULFATE 220 MG CAP PO SCH (08:16)
[2020-11-09] MEDS: FAMOTIDINE 20 MG TAB PO SCH ×2 (08:16→19:15)
[2020-11-09] MEDS: VITAMIN D 1000 UNIT TAB PO SCH (08:16)
[2020-11-09] MEDS: ASPIRIN EC 81 MG TAB PO SCH (08:16)
[2020-11-09] MEDS: ASCORBIC ACID 500 MG TABLET PO SCH ×4 (08:16→19:18)
[2020-11-09] MEDS: METHYLPREDNISOLONE 125 MG INJ IV SCH ×2 (08:16→19:15)
[2020-11-09] MEDS: APIXABAN 2.5 MG TABLET PO SCH ×2 (08:16→19:15)
[2020-11-09] MEDS: THIAMINE HCL 100 MG TABLET PO SCH ×2 (08:17→19:18)
[2020-11-09] MEDS: AMITRIPTYLINE 10 MG TAB PO SCH (19:15)
[2020-11-10 06:20] LABS: Absolute Lymphocytes (CBC) 0.9 K/uL (0.7-4.9); Basophils % 0.2 % (0-1.3); Hematocrit 42.6 % (36.0-45.0); Lymphocytes % 8.1 % (15.3-44.8); MPV 7.9 fL (7.6-11.3); RBC Red Blood Cell Count 4.78 M/uL (3.86-4.86)
[2020-11-10 06:40] LABS: BUN Blood Urea Nitrogen 23 mg/dL (7-18); Bicarbonate 30 mmol/L (21-32); Ferritin 187.2 ng/mL (8-388); Glucose Level 107 mg/dL (74-106); Magnesium 2.4 mg/dL (1.8-2.4); Sodium Level 139 mmol/L (136-145)
[2020-11-10 06:41] LABS: C-Reactive Protein < 2.90 mg/L (<3.00)
[2020-11-10] MEDS: VITAMIN D 1000 UNIT TAB PO SCH (08:12)
[2020-11-10] MEDS: APIXABAN 2.5 MG TABLET PO SCH (08:13)
[2020-11-10] MEDS: METHYLPREDNISOLONE 125 MG INJ IV SCH (08:13)
[2020-11-10] MEDS: ZINC SULFATE 220 MG CAP PO SCH (08:13)
[2020-11-10] MEDS: THIAMINE HCL 100 MG TABLET PO SCH (08:13)
[2020-11-10] MEDS: FAMOTIDINE 20 MG TAB PO SCH (08:13)
[2020-11-10] MEDS: ASPIRIN EC 81 MG TAB PO SCH (08:13)
[2020-11-10] MEDS: ASCORBIC ACID 500 MG TABLET PO SCH ×2 (08:13→13:27)
--- NOTE | 2020-11-10 09:17 | P.PN ---
Date of Service: 11/09/20 Subjective Patient continues to improve. Stable for discharge in the morning if she can stay on 4 L throughout the day. Have encouraged her to get out of bed and ambulate and will encourage the nursing staff to do this as well with. She has been in bed for almost 3 weeks and her strength is significantly diminished. Review of Systems 10-point ROS is otherwise unremarkable Physical Examination - Vital Signs reviewed - Physical Exam General: Alert, In no apparent distress, Oriented x3; 4 L wall oxygen Respiratory: Clear to auscultation bilaterally, Normal air movement Cardiovascular: Regular rate/rhythm, Normal S1 S2, No murmurs Gastrointestinal: Normal bowel sounds, Soft and benign, Non-distended, No ten derness Musculoskeletal: No clubbing, No swelling, No tenderness Assessment & Plan - Problems (Diagnosis) (1) Pneumonia due to 2019 novel coronavirus Current Visit: Yes Status: Acute - Plan Continue with plan of care as mentioned below: 1. Wean IV steroids in wean oxygen. Arrange for home oxygen. Start physical therapy. Were going to try to get patient home over the next 24hrs. 2. Patient will need outpatient physical therapy. Arrange for home health and home oxygen.
[2020-11-10 12:50] VITALS: BP 117/69; TEMP 98.7
[2020-11-10 12:58] VITALS: O2SAT 93
== END 2020-11-10 15:13 | disposition home or self-care (01) | DRG 177 ==
LOC: ER 05:19 → ERHOLD 09:17 → 4TH 21:33
PROVIDERS: ADMIT Hospitalist; ATTEND Hospitalist
DX: U07.1 COVID-19 (principal); J12.82 Pneumonia due to coronavirus disease 2019; J96.01 Acute respiratory failure with hypoxia; Z68.41 Body mass index [BMI] 40.0-44.9, adult; R79.89 Other specified abnormal findings of blood chemistry; K76.0 Fatty (change of) liver, not elsewhere classified; G89.29 Other chronic pain; F41.9 Anxiety disorder, unspecified; E66.9 Obesity, unspecified; Z87.891 Personal history of nicotine dependence
CPT/HCPCS: 36415; 71045; 71275; 76705; 80048; 80053; 80076; 82728; 82805; 82947; 83605; 83690; 83735; 83880; 84145; 84484; 85025; 85379; 85610; 85730; 86140; 87040; 87070; 87081; 87205; 87804; 93005; 94002; 94003; 94010; 94660; 94760; 96365; 96366; 96375; 97110; 97116; 97161; 97530; 99285; J0696; J2405; J2920; J2930; J7030; J7040; J7512; Q9967; U0003